=== PATIENT | male | born 1965 | race Caucasian/White ===

== ENCOUNTER 2020-02-22 07:41 | Day surgery (SDC) | payer MEDICAID ==
--- OUTSIDE RECORDS SUMMARY | 2020-02-22 07:59 | XMS REPORT | Summary of Care ---
:1965 Author Organization [facility] Address [address] [place] [address] Care Team Providers Name Role Phone JoyceMoriahTigist Rajesh Primary Care Provider Reason for Visit Reason Comments Follow-up 3mo Encounter Details Date Type Department Care Team Description 12/23/2019 Office Visit [facility] Chaz Jordan M D Hyperlipidemia, unspecified hyperlipidem ia type (Primary Dx); Cardiology- [address] Stage 4 chronic kidney disea se; [address] [place] [address] DRIVE Obesity (BMI 30-39.9) Drive, [address] [place], [place] [phone] Allergies No Known Allergiesdocumented as of this encounter (statuses as of 12/23/2019) Medications Medication Sig Dispensed Refills Start Date End Date Status atorvastatin 20 mg Take 1 tablet by 30 tablet 3 09/21/2019 Active tabletIndications: mouth daily. Hyperlipidemia, unspecified hyperlipidemia type documented as of this encounter (statuses as of 12/23/2019) Active Problems Not on filedocumented as of this encounter (statuses as of 12/23/2019) Immunizations Name Administration Dates Next Due Influenza Virus Vaccine 05/27/2019 documented as of this encounter Social History Tobacco Use Types Packs/Day Years Used Date Never Smoker Smokeless Tobacco: Never Used Sex Assigned at Date Recorded Not on file Job Start Date Occupation Industry Not on file Not on file Not on file Travel History Travel Start Travel End No recent travel history available. COVID-19 Exposure Response Date Recorded In the last month, have you been in contact with No / Unsure 12/23/2019 9:22 AM CDT someone who was confirmed or suspected to have Coronavirus / COVID-19? documented as of this encounter Last Filed Vital Signs Vital Sign Reading Time Taken Comments Blood Pressure 113/72 12/23/2019 9:23 AM CDT Pulse 61 12/23/2019 9:23 AM CDT Temperature - - Respiratory Rate 19 12/23/2019 9:23 AM CDT Oxygen Saturation 100% 12/23/2019 9:23 AM CDT Inhaled Oxygen Concentration - - Weight 81.4 kg (179 lb 6.4 oz) 12/23/2019 9:23 AM CDT Height 160 cm (5' 3") 12/23/2019 9:23 AM CDT Body Mass Index 31.78 12/23/2019 9:23 AM CDT documented in this encounter Progress Notes Chaz Jordan MD - 12/23/2019 9:20 AM CDT CARDIOLOGY CLINIC NOTE 12/23/2019 Reason for Referral/Presenting Complaint: HLD PCP: Tigist Cook Referring Provider--Ugo Guillory History of Present Illness: Lavon Antonio is a 54 years old male with history of CKD 4, obesity and mixed HLD. Last LDL 210. Denies chest pain. Mild DAWN with 3-4 blocks walking. Denies HTN or DM. In the past he refused to take statins. Referred here for PSK-9 inhibitor assessment. Last visit we started lipitor 20 mg daily. No side effect. ECHO showed normal LVEF. Cardiovascular testing: EKG: Normal sinus rhythm. Normal EKG. ECHO--Normal LVEF. Mildly dilated aorta. Review of Systems: General: (-) fever, (-) chills, (-) weight change, (-) dizziness, (-) fatigue Skin: (-) rash HEENT: (-) headache, (-) change in vision Neck: (-) difficulty swallowing Heme: negative Resp: (-) cough, (+) dyspnea on exertion Cardio: (-) chest pain, (-) palpitations, (-) syncope GI: (-) vomiting, (-) diarrhea : negative Endo: (-) diabetes, (-) thyroid disease Neuro: (-) numbness, (-) tingling, (-) weakness Back: (-) pain CAYDEN: (-) muscle pain, (-) claudication Psych: (-) anxiety, (-) depression Past Medical History: No past medical history on file. Current Medications: Current Outpatient Medications Medication Sig Dispense Refill atorvastatin 20 mg tablet Take 1 tablet by mouth daily. 30 tablet 3 No current facility-administered medications for this visit. Social History: Social History Socioeconomic History Marital status: Single Spouse name: Not on file Number of children: Not on file Years of education: Not on file Highest education level: Not on file Occupational History Not on file Social Needs Financial resource strain: Not on file Food insecurity: Worry: Not on file Inability: Not on file Transportation needs: Medical: Not on file Non-medical: Not on file Tobacco Use Smoking status: Never Smoker Smokeless tobacco: Never Used Substance and Sexual Activity Alcohol use: Not on file Drug use: Not on file Sexual activity: Not on file Lifestyle Physical activity: Days per week: Not on file Minutes per session: Not on file Stress: Not on file Relationships Social connections: Talks on phone: Not on file Gets together: Not on file Attends sabianist service: Not on file Active member of club or organization: Not on file Attends meetings of clubs or organizations: Not on file Relationship status: Not on file Intimate partner violence: Fear of current or ex partner: Not on file Emotionally abused: Not on file Physically abused: Not on file Forced sexual activity: Not on file Other Topics Concern Not on file Social History Narrative Not on file Family History Family History Problem Relation Age of Onset Cancer Father colon cancer Coronary Heart Disease Father PCI @ 68 Physical Examination: BP 113/72 (BP Location: Left arm, Patient Position: Sitting, BP CUFF SIZE: Adult Small) | Pulse 61| Resp 19 | Ht 5' 3" (1.6 m) | Wt 179 lb 6.4 oz (81.4 kg) | SpO2 100% | BMI 31.78 kg/m Constitutional: alert and oriented x 3 (person, place and date/time); no apparent distress, obese ENT: normocephalic atraumatic, supple, no lymphadenopathy, no bruits, no JVD Lungs: clear to auscultation bilaterally Cardiovascular: S1, S2 normal, regular; no murmurs, rubs or gallops GI: soft; non-tender; non-distended; normoactive bowel sounds : not examined Musculoskeletal: Extremities: no clubbing, cyanosis, or edema Skin: no rashes Neuro: no focal deficits Assessment/Plan: ICD-10-CM ICD-9-CM 1. Hyperlipidemia, unspecified hyperlipidemia type E78.5 272.4 2. Stage 4 chronic kidney disease N18.4 585.4 3. Obesity (BMI 30-39.9) E66.9 278.00 Mixed HLD--with LDL 210, there is a benefit for high intensity statins. We started lipitor 20 mg daily. He has not increased it as instructed. No side effect. Plan on repeating lipid panel today for further dosing. Discussed diet and exercise. Patient was counseled for lifestyle modifications including: diet, exercise and weight loss. RTC 12 months if stable Chaz Jordan MD, FAC, [employer] Admissions Representative, Division of Cardiology [facility] documented in this encounter Plan of Treatment Date Type Specialty Care Team Description 12/23/[address] Visit Phlebotomy 2, Adc Lab 12/26/2020 Office Visit Cardiology Chaz Jordan M D [address] [place] [address] 15 [phone] Name Type Priority Associated Diagnoses Order S chedule LIPID PANEL LAB Routine Hyperlipidemia, unspecified 1 Occurrences starting (06097)(TOTAL hyperlipidemia type 020 until CHOLESTEROL, 03/24/2020 TRIGLYCERIDES, HDL) Health Maintenance Due Date Last Done Comments DTaP,Tdap,and Td Vaccines (1 1977 - Tdap) Depression Screening 1978 COLONOSCOPY 01/17/2016 Zoster Recombinant Vaccine 01/17/2016 (SHINGRIX) (1 of 2) INFLUENZA VACCINE Completed 05/27/2019, 05/15/2017, 06/11/2016 PNEUMOCOCCAL 0-64 YEARS Aged Out No longe r eligible based COMBINED SERIES on patient's age to complete this to [facility] documented as of this encounter Results Not on filedocumented in this encounter Visit Diagnoses Diagnosis Hyperlipidemia, unspecified hyperlipidem ia type - Primary Stage 4 chronic kidney disease Obesity (BMI 30-39.9) Obesity, unspecified documented in this encounter Insurance Payer Benefit Plan / Subscriber ID Effective Phone Address T [facility] Group Dates AG LUONG xxxxxxxxx 2011-Kelly RAPP [place] [id number] MA[place] MEDICAID [place], [place] documented as of this encounter
--- OUTSIDE RECORDS SUMMARY | 2020-02-22 07:59 | XMS REPORT | Continuity of Care Document ---
:1965 Author Organization [facility] t Address [address] [place] [address] Care Team Providers Name Role Phone Julian VALE Attending Clinician Problems This patient has no known problems. Allergies, Adverse Reactions, Alerts This patient has no known allergies or adverse reactions. Medications This patient has no known medications. Procedures This patient has no known procedures. Encounters Start End Encounter Admission Attending Care Care Encounter Source Date/Time Date/Time Type Type Clinicians Facility Department ID 2019-12-30 2019-12-30 [facility] [id number] 00:00:00 00:00:00 Chaz Turner [id number] [place] [id number] Professio [phone] nal 059 Building 2019-12-23 2019-12-23 Office [facility] [id number] 09:05:47 23:17:42 Visit Chaz Turner [id number] [place] [id number] Professio [phone] [facility]9 [facility] Results This patient has no known results.
--- OUTSIDE RECORDS SUMMARY | 2020-02-22 07:59 | XMS REPORT | Summary of Care ---
:1965 Author Organization [facility] Address [address] [place] [address] Care Team Providers Name Role Phone JoyceMoriahTigist Rajesh Primary Care Provider Reason for Visit Reason Comments Follow-up 3mo Encounter Details Date Type Department Care Team Description 12/23/2019 Office Visit [facility] Chaz Jordan M D Hyperlipidemia, unspecified hyperlipidem ia type (Primary Dx); Cardiology- [address] Stage 4 chronic kidney disea se; [address] [place] [address] DRIVE Obesity (BMI 30-39.9) Drive, [address] [place], [place] [phone] Allergies No Known Allergiesdocumented as of this [...] file Gets together: Not on file Attends druze service: Not on file Active member of [...] if stable Chaz Jordan MD, FAC, JAYCE Reheater, Division of Cardiology [facility] documented in this encounter Plan of Treatment Date Type Specialty Care Team Description 12/23/2019 Visual Education Director Visit Phlebotomy 2, Adc Lab 12/26/2020 Office Visit Cardiology Chaz Jordan M D [address] [place] [address] [phone] Name Type Priority Associated Diagnoses Order S chedule LIPID PANEL LAB Routine Hyperlipidemia, unspecified 1 Occurrences starting (09256)(TOTAL hyperlipidemia type 020 until CHOLESTEROL, 03/24/2020 TRIGLYCERIDES, HDL) Health Maintenance Due Date Last Done Comments DTaP,Tdap,and Td Vaccines (1 1977 - Tdap) Depression Screening 1978 COLONOSCOPY 01/17/2016 Zoster Recombinant Vaccine 01/17/2016 (SHINGRIX) (1 of 2) INFLUENZA VACCINE Completed 05/27/2019, 05/15/2017, 06/11/2016 PNEUMOCOCCAL 0-64 YEARS Aged Out No longe r eligible based COMBINED SERIES on patient's age to complete this to psychiatric documented as of this encounter Results Not on filedocumented in this encounter Visit Diagnoses Diagnosis Hyperlipidemia, unspecified hyperlipidem ia type - Primary Stage 4 chronic kidney disease Obesity (BMI 30-39.9) Obesity, unspecified documented in this encounter Insurance Payer Benefit Plan / Subscriber ID Effective Phone Address T [facility] Group Dates AG LUONG xxxxxxxxx 2011-Kelly RAPP [place] [phone] MANAGED MEDICAID [place] documented as of this encounter
--- OUTSIDE RECORDS SUMMARY | 2020-02-22 07:59 | XMS REPORT | Summary of Care ---
:1965 Author Organization [facility] Address [address] [place] [address] Care Team Providers Name Role Phone Tigist Cook Primary Care Provider Reason for Visit Reason Comments LAB Encounter Details Date Type Department Care Team Description 12/23/2019 Silver [place] Visit [facility] Chaz Jordan MD [address] [place] [address] [address] [place] [address] Hyperlipidemia, Professional Office 2, [facility] unspecified Building Phlebotomy hyperlip idemia type Lab Professional Office Building [address] [place] [address] [address], [address] [place] [address] Allergies No Known Allergiesdocumented as of this [...] of this encounter Last Filed Vital Signs Not on filedocumented in this encounter Plan of Treatment Date Type Specialty Care Team Description 12/26/2020 Office Visit Cardiology Chaz Jordan M D [address] [facility] [address] [place] [address] [phone] Health Maintenance Due Date Last Done Comments DTaP,Tdap,and Td Vaccines (1 1977 - Tdap) Depression Screening 1978 COLONOSCOPY 01/17/2016 Zoster Recombinant Vaccine 01/17/2016 (SHINGRIX) (1 of 2) INFLUENZA VACCINE Completed 05/27/2019, 05/15/2017, 06/11/2016 PNEUMOCOCCAL 0-64 YEARS Aged Out No longe r eligible based COMBINED SERIES on patient's age to complete this to [facility] documented as of this encounter Results Not on filedocumented in this encounter Visit Diagnoses Diagnosis Hyperlipidemia, unspecified hyperlipidem ia type documented in this encounter Insurance Payer Benefit Plan / Subscriber ID Effective Phone Address T ype Group Dates AG LUONG xxxxxxxxx 2011-Kelly Osborne [address] Medic aid [facility]ALTHCARE - [facility] [place] [address] MANAGED MEDICAID [place], [place] (Home) [address] [place] [address] documented as of this encounter
--- OUTSIDE RECORDS SUMMARY | 2020-02-22 08:00 | XMS REPORT | Summary of Care ---
:1965 Author Organization [facility] Address [address] [place] [address] Care Team Providers Name Role Phone Tigist Cook Primary Care Provider Reason for Visit Reason Comments Results Encounter Details Date Type Department Care Team Description 12/30/2019 Telephone [facility] Cardiology- Shanel Jordan MD Results [place] [address] [facility] 146 [facility], [address] [place] [address] [place] [address] [phone] Allergies No Known Allergiesdocumented as of this encounter (statuses as of 01/02/2020) Medications Medication Sig Dispensed Refills Start Date End Date Status atorvastatin 20 mg Take 1 tablet by 90 tablet 3 12/23/2019 Active tabletIndications: mouth daily. Hyperlipidemia, unspecified hyperlipidemia type documented as of this encounter (statuses as of 01/02/2020) Active Problems Not on filedocumented as of this encounter (statuses as of 01/02/2020) Immunizations Name Administration Dates Next Due Influenza [...] Visit Cardiology Chaz Jordan M D [address] [facility] [address] [place] [address] [phone] Health Maintenance Due Date Last Done Comments DTaP,Tdap,and Td Vaccines (1 1977 - Tdap) Depression Screening 1978 COLONOSCOPY 01/17/2016 Zoster Recombinant Vaccine 01/17/2016 (SHINGRIX) (1 of 2) INFLUENZA VACCINE Completed 05/27/2019, 05/15/2017, 06/11/2016 PNEUMOCOCCAL 0-64 YEARS Aged Out No longe r eligible based COMBINED SERIES on patient's age to complete this to [facility] documented as of this encounter Results Not on filedocumented in this encounter Insurance Payer Benefit Plan / Subscriber ID Effective Phone Address T e Group Dates AG LUONG xxxxxxxxx 2011-Kelly [address] [place] [phone] MA[place]ED MEDICAID [place] documented as of this encounter
--- OUTSIDE RECORDS SUMMARY | 2020-02-22 08:00 | XMS REPORT | Summary of Care ---
:1965 Author Organization [facility] Address [address] [place] [address] Care Team Providers Name Role Phone JoyceMoriahTigist Rajesh Primary Care Provider Reason for Visit Reason Comments Follow-up 3mo Encounter Details Date Type Department Care Team Description 12/23/2019 Office Visit [facility] Chaz Jordan M D Hyperlipidemia, unspecified hyperlipidem ia type (Primary Dx); Cardiology- [address] Stage 4 chronic kidney disea se; [address] [place] [address] DRIVE Obesity (BMI 30-39.9) Drive, [address] [place], [place] [phone] Allergies No Known Allergiesdocumented as of this encounter (statuses as of 12/23/2019) Medications Medication Sig Dispensed Refills Start Date End Date Status atorvastatin 20 mg Take 1 90 tablet 3 12/23/2019 Active tabletIndications: tablet by Hyperlipidemia, mouth unspecified daily. hyperlipidemia type atorvastatin 20 mg Take 1 30 tablet 3 09/21/2019 Discontinued tabletIndications: tablet by 0 ( Reorder) Hyperlipidemia, mouth unspecified daily. hyperlipidemia type documented as of this encounter [...] file Gets together: Not on file Attends shinto service: Not on file Active member of [...] 12 months if stable Chaz Jordan MD, FACC, JAYCE Puppet Engineer, Division of Cardiology [facility] documented in this encounter Plan of Treatment Date Type Specialty Care Team Description 12/26/2020 Office Visit Cardiology Chaz Jordan M D [address] [facility] [address] [place] [address] [phone] Health Maintenance Due Date Last Done Comments DTaP,Tdap,and Td Vaccines (1 1977 - Tdap) Depression Screening 1978 COLONOSCOPY 01/17/2016 Zoster Recombinant Vaccine 01/17/2016 (SHINGRIX) (1 of 2) INFLUENZA VACCINE Completed 05/27/2019, 05/15/2017, 06/11/2016 PNEUMOCOCCAL 0-64 YEARS Aged Out No longe r eligible based COMBINED SERIES on patient's age to complete this to pic documented as of this encounter Results LIPID PANEL (18407)(TOTAL CHOLESTEROL, TRIGLYCERIDES, HDL) (12/23/2019 9:49 AM CDT) Pathologist Sig nature CHOL 163 120 - 200 mg/dL [facility] HDL 44 >40 mg/dL [facility] HDLC RATIO 3.7 <=5.0 [facility] TRIG 155 30 - 170 mg/dL [facility] LDL CHOL 88 <=160 mg/dL [facility] VLDL 31 5 - 60 mg/dL [facility] Specimen Blood Performing Organization Address City/State/Zipcode Phone Number [facility] CLIA: [id number], [address] [place], [place] [address] documented in this encounter Visit Diagnoses Diagnosis Hyperlipidemia, unspecified hyperlipidem ia type - Primary Stage 4 chronic kidney disease Obesity (BMI 30-39.9) Obesity, unspecified documented in this encounter Insurance Payer Benefit Plan / Subscriber ID Effective Phone Address T ype Group Dates AG LUONG xxxxxxxxx 2011-Kelly [address] [place] [facility] [place] [address] MANAGED MEDICAID [place], [place] documented as of this encounter
[2020-02-22] MEDS ORDERED: Ringers Lactate 1,000 ML IV ONE (08:12)
[2020-02-22] MEDS ORDERED: BUPIVACA 0.25%/EPI 0.0005%/PF 30 ML VIAL ONE (09:00)
[2020-02-22 09:21] LABS: Absolute Lymphocytes (CBC) 1.1 K/uL (0.7-4.9); Basophils % 1.1 % (0-1.3); Lymphocytes % 16.6 % (15.3-44.8); MPV 7.7 fL (7.6-11.3); RBC Red Blood Cell Count 2.18 M/uL (4.33-5.43)
[2020-02-22 09:36] LABS: Hematocrit 19.3 % (39.6-49.0)
[2020-02-22 09:43] LABS: Potassium 3.9 mmol/L (3.5-5.1)
[2020-02-22] MEDS ORDERED: propofoL 200 MG/20 ML VIAL IV ONE (10:26)
[2020-02-22] MEDS ORDERED: MIDAZOLAM HCL 2 MG/2 ML INJ ONE (10:26)
[2020-02-22] MEDS ORDERED: LIDOCAINE 2% MPF 5 ML VIAL ONE (10:26)
[2020-02-22] MEDS ORDERED: FENTANYL CITR 100 MCG/2 ML ONE (10:26)
[2020-02-22] MEDS ORDERED: BSS OPTHALMIC SOL 15 ML BOT OPTH ONE (10:48)
[2020-02-22] MEDS ORDERED: CEFAZOLIN SODIUM 1 GM/VIAL ONE (10:49)
--- NOTE | 2020-02-22 10:57 | P.OP ---
Mold Worker: NONE,NONE Preoperative diagnosis: LEFT Supraorbital cyst Postoperative diagnosis: LEFT Supraorbital cyst Primary procedure: Excision of LEFT Supraorbital cyst Anesthesia: MAC + Local Estimated blood loss: <10cc Specimen: cyst and cultures Findings: sebaceous cyst ~2.5cm round Complications: None Transferred to: Recovery Room Condition: Good
[2020-02-22 12:04] VITALS: BP 110/66; TEMP 96.6; O2SAT 95
--- NOTE | 2020-02-22 20:57 | OP ---
Date of Procedure: 02/22/2020 Surgeon: Farzad Pace MD, Preoperative Diagnosis: Left supraorbital cyst. Postoperative Diagnosis: Left supraorbital cyst. Procedure Performed: Excision of left supraorbital cyst. Anesthesia: MAC plus local with 0.25% Marcaine with epinephrine. Estimated Blood Loss: Less than 10 mL. Specimens: Cyst and cultures. Findings: Sebaceous cyst approximately 2.5 cm round. Complications: None. Disposition: Transferred to recovery room in good condition. Procedure In Detail: After informed consent was obtained, the patient was brought to the operating r oom, prepped and draped in the usual sterile fashion. After adequate anesthesia achieved, additional ly anesthetized the area over the left supraorbital ridge and circumferentially inspected the area. I made a superior orbital incision of approximately 2 cm in size following the Liz line of the for ehead down through subcutaneous tissues after stopping all oxygen approximately 5 minutes prior. At this point, I suctioned out the area, fluff the dressings to ensure all oxygen had been evacuated. T he patient was on room air at this point and I used needle-tip low electrocautery to dissect down thr ough subcutaneous tissues with Waterpik and basin on the standby. After I dissected down to the subc utaneous tissues, I bluntly dissected out the sebaceous cyst, which was found to be in the posterior position and had some leakage of sebum material. This was cultured for both aerobic and anaerobic sp eciation and has a discoloration character to it. At this point, I circumferentially dissected the s ac bluntly and removed it from the space. I then achieved hemostasis with electrocautery, irrigated the area copiously multiple times until completely clear and then closed the area with a running 4-0 Monocryl in a running fashion, Dermabond placed over top. The patient tolerated the procedure well w ithout evidence of complication, transferred to PACU in good condition. All counts were correct at t he end of the case. TK/MODL Voice ID: [id number] Report ID: [id number]
== END 2020-02-22 11:40 | disposition home or self-care (01) ==
LOC: OR 07:41
PROVIDERS: ATTEND Surgery
PROC: 08BP0ZX Excision of Left Upper Eyelid, Open Approach, Diagnostic (ICD-10-PCS; principal; 2020-02-22 09:15)
DX: L72.0 Epidermal cyst (principal); Z11.59 Encounter for screening for other viral diseases
CPT/HCPCS: 11443; 87070; 85025; 80048; 36415; 87205 ×2; 88304; 87075; U0002; J2704; J2250; J7120; J0690; J3010

== ENCOUNTER 2020-04-09 01:25 | Inpatient (IN) | payer MEDICAID ==
[2020-04-09] MEDS ORDERED: NA CHLORIDE 0.9% 1,000 ML ONE (01:54)
[2020-04-09] MEDS ORDERED: DIPHENHYDRAMINE 50 MG/ML VIAL ONE (01:54)
[2020-04-09] MEDS ORDERED: METHYLPREDNISOLONE 125 MG INJ ONE (01:54)
[2020-04-09] MEDS ORDERED: predniSONE 10 MG TAB ONE (01:54)
[2020-04-09] MEDS ORDERED: FAMOTIDINE 20 MG/2 ML VIAL IV ONE (01:55)
[2020-04-09 02:08] LABS: Absolute Lymphocytes (CBC) 1.5 K/uL (0.7-4.9)
[2020-04-09 02:14] LABS: Basophils % 1.2 % (0-1.3); MPV 7.6 fL (7.6-11.3); RBC Red Blood Cell Count 2.19 M/uL (4.33-5.43)
[2020-04-09 02:17] LABS: Hematocrit 18.4 % (39.6-49.0)
[2020-04-09 02:24] LABS: Urine Blood 2+ (NEG); Urine Glucose NEGATIVE (NEG); Urine Protein 2+ (NEG)
[2020-04-09 02:36] LABS: Albumin 2.7 g/dL (3.4-5.0); Bilirubin Total 0.2 mg/dL (0.2-1.0); Potassium 3.8 mmol/L (3.5-5.1); Protein, Total 7.4 g/dL (6.4-8.2)
--- NOTE | 2020-04-09 02:54 | ER ---
Nurse's Notes [facility] Name: Lavon Antonio Age: 55 yrs Sex: Male : 1965 Arrival Date: 04/09/2020 Time: 01:31 Bed 5 Private MD: Diagnosis: Unspecified kidney failure-ACUTE ON CHRONIC;Anemia, unspecified;Edema, unspecified Presentation: 04/09 01:32 Chief complaint: EMS states: they were toned out for report of pt with rash x 1 week. bb Pt states he just got rid of bedbugs in his apartment approx a week ago but the itching has gotten so bad he has not been able to sleep the last 2 days. Coronavirus screen: At this time, the client does not indicate any symptoms associated with coronavirus-19. Ebola Screen: No symptoms or risks identified at this time. Initial Sepsis Screen: Does the patient meet any 2 criteria? No. Patient's initial sepsis screen is negative. Does the patient have a suspected source of infection? No. Patient's initial sepsis screen is negative. Risk Assessment: Do you want to hurt yourself or someone else? Patient reports no desire to harm self or others. Onset of symptoms was March 2020. 01:32 Method Of Arrival: EMS: [facility] 01:32 Acuity: VIANNEY 4 bb Historical: - Allergies: 01:35 No Known Allergies; bb - Home Meds: 01:35 None [Active]; bb - PMHx: 01:35 kidney disease; bb - Immunization history:: Adult Immunizations up to date. - Social history:: Smoking status: Patient denies any tobacco usage or history of. Patient/guardian denies using alcohol, street drugs. - Family history:: pertinent for. Screenin:38 Abuse screen: Denies threats or abuse. Denies injuries from another. Nutritional lp1 screening: No deficits noted. Tuberculosis screening: No symptoms or risk factors identified. Fall Risk None identified. Assessment: 01:36 General: Appears in no apparent distress. Behavior is appropriate for age. Pain: Denies lp1 pain. Neuro: Level of Consciousness is awake, alert, obeys commands, Oriented to person, place, time, situation. Cardiovascular: Patient's skin is warm and dry. Respiratory: Respiratory effort is even, unlabored. GI: Abdomen is non-distended. : No signs and/or symptoms were reported regarding the genitourinary system. EENT: No signs and/or symptoms were reported regarding the EENT system. Derm: Skin is intact, Skin is dry, Skin is normal, Skin temperature is warm no rash noted to trunk Reports itching, to posterior back and abdomen. Musculoskeletal: No deficits noted. 02:45 Reassessment: Patient states some itching relief at this time; appears restless, lp1 standing at side of bed; denies any discomfort. 03:02 Reassessment: Hospitalist at bedside to discuss plan of care with patient. lp1 03:29 Reassessment: Nurse unable to take report at this time; will return call. lp1 04:15 Reassessment: Patient appears in no apparent distress at this time. Patient and/or lp1 family updated on plan of care and expected duration. Pain level reassessed. Patient states some slight itching to posterior back. Vital Signs: 01:32 BP 150 / 74; Pulse 96; Resp 16 S; Temp 98(O); Pulse Ox 100% on R/A; Weight 83.91 kg bb (R); Height 5 ft. 3 in. (160.02 cm) (R); Pain 0/10; 03:00 BP 140 / 78; Pulse 90; Resp 17; Pulse Ox 100% on R/A; lp1 04:00 BP 138 / 79; Pulse 80; Resp 17; Pulse Ox 100% on R/A; lp1 01:32 Body Mass Index 32.77 (83.91 kg, 160.02 cm) ED Course: 01:31 Patient arrived in ED. bb 01:33 Freddy Castellanos MD is Attending Physician. [facility] 01:35 Triage completed. bb 01:35 Kia Parr, KM is Primary Nurse. lp1 01:35 Arm band placed on Patient placed in an exam room, on a stretcher, on pulse oximetry. bb 01:38 Patient has correct armband on for positive identification. lp1 01:55 Initial lab(s) drawn, by me, sent to lab. Inserted saline lock: 20 gauge in right hand, lp1 using aseptic technique. Blood collected. 02:22 Urine collected: clean catch specimen, clear. rr5 02:28 IV discontinued, intact, bleeding controlled, No redness/swelling at site. Pressure rr5 dressing applied, right IV line removed positive infiltration. 02:30 Inserted saline lock: 20 gauge in left hand, using aseptic technique. rr5 02:52 Nino Sparks MD is Hospitalizing Provider. clare 02:54 XRAY Chest (1 view) In Process Unspecified. EDMS 03:25 No provider procedures requiring assistance completed. Patient admitted, IV remains in lp1 place. Administered Medications: Discontinued: NS 0.9% 1000 ml IV at 125 ml/hr continuous 01:50 Drug: predniSONE 20 mg Route: PO; lp1 03:26 Follow up: Response: No adverse reaction lp1 01:55 Drug: NS 0.9% 1000 ml Route: IV; Rate: 125 ml/hr; Site: right hand; lp1 01:55 Drug: Pepcid 20 mg Route: IVP; Site: right hand; lp1 03:26 Follow up: Response: No adverse reaction lp1 01:55 Drug: Benadryl 25 mg Route: IVP; Site: right hand; lp1 03:26 Follow up: Response: No adverse reaction lp1 01:55 Drug: SOLU-Medrol 125 mg Route: IVP; Site: right hand; lp1 03:26 Follow up: Response: No adverse reaction lp1 03:19 Drug: Rocephin 1 grams Route: IV; Rate: per protocol; Site: left hand; lp1 04:24 Follow up: IV Status: Completed infusion; IV Intake: 10ml lp1 03:19 Drug: D5W with Sodium Bicarbonate 100 mEq/L 1000 ml Route: IV; Rate: 75 ml/hr; Site: lp1 left hand; 04:25 Follow up: IV Status: Infusion continued upon admission lp1 Intake: 04:24 IV: 10ml; Total: 10ml. lp1 Outcome: 02:53 Decision to Hospitalize by Provider. clare 03:25 Condition: stable lp1 03:25 Instructed on the need for admit. 04:23 Admitted to Med/surg via wheelchair, room 220, with chart, Report called to KM Zamorano lp1 04:45 Patient left the ED. lp1 Signatures: Dispatcher [employer] Freddy Allen MD MD cha Ballard, Brenda, RN RN bb Pena, Laura, RN RN lp1 Andrea Espinoza RN RN rr5 Corrections: (The following items were deleted from the chart) 04:24 04:23 Admitted to Med/surg via wheelchair, with chart, Report called to KM Zamorano lp1 lp1
--- NOTE | 2020-04-09 02:54 | EDPHYS ---
Physician Documentation [facility] Name: Lavon Antonio Age: 55 yrs Sex: Male : 1965 Arrival Date: 04/09/2020 Time: 01:31 Bed 5 Private MD: GIANCARLO Physician Freddy Castellanos HPI: 04/09 01:38 This 55 yrs old Male presents to ER via EMS with complaints of Rash. clare 01:38 The patient's rash thought to be caused by Dermatitis. The rash is located on the back. clare The rash can be described as erythematous, flat. Onset: The symptoms/episode began/occurred today, yesterday, 2 day(s) ago. Associated signs and symptoms: Pertinent positives: burning sensation. Severity of symptoms: At their worst the symptoms were mild in the emergency department the symptoms are unchanged. The patient has not experienced similar symptoms in the past. Historical: - Allergies: 01:35 No Known Allergies; bb - Home Meds: 01:35 None [Active]; bb - PMHx: 01:35 kidney disease; bb - Immunization history:: Adult Immunizations up to date. - Social history:: Smoking status: Patient denies any tobacco usage or history of. Patient/guardian denies using alcohol, street drugs. - Family history:: pertinent for. ROS: 01:38 Constitutional: Negative for fever, chills, and weight loss, Eyes: Negative for injury, clare pain, redness, and discharge, ENT: Negative for injury, pain, and discharge, Neck: Negative for injury, pain, and swelling, Cardiovascular: Negative for chest pain, palpitations, and edema, Respiratory: Negative for shortness of breath, cough, wheezing, and pleuritic chest pain, Abdomen/GI: Negative for abdominal pain, nausea, vomiting, diarrhea, and constipation, : Negative for injury, bleeding, discharge, and swelling, MS/Extremity: Negative for injury and deformity, Neuro: Negative for headache, weakness, numbness, tingling, and seizure, Psych: Negative for depression, anxiety, suicide ideation, homicidal ideation, and hallucinations, Allergy/Immunology: Negative for hives, rash, and allergies, Endocrine: Negative for neck swelling, polydipsia, polyuria, polyphagia, and marked weight changes, Hematologic/Lymphatic: Negative for swollen nodes, abnormal bleeding, and unusual bruising. 01:38 Back: Positive for ITCHING. Exam: 01:38 Constitutional: This is a well developed, well nourished patient who is awake, alert, clare and in no acute distress. Head/Face: Normocephalic, atraumatic. Eyes: Pupils equal round and reactive to light, extra-ocular motions intact. Lids and lashes normal. Conjunctiva and sclera are non-icteric and not injected. Cornea within normal limits. Periorbital areas with no swelling, redness, or edema. ENT: Nares patent. No nasal discharge, no septal abnormalities noted. Tympanic membranes are normal and external auditory canals are clear. Oropharynx with no redness, swelling, or masses, exudates, or evidence of obstruction, uvula midline. Mucous membranes moist. Neck: Trachea midline, no thyromegaly or masses palpated, and no cervical lymphadenopathy. Supple, full range of motion without nuchal rigidity, or vertebral point tenderness. No Meningismus. Chest/axilla: Normal chest wall appearance and motion. Nontender with no deformity. No lesions are appreciated. Cardiovascular: Regular rate and rhythm with a normal S1 and S2. No gallops, murmurs, or rubs. Normal PMI, no JVD. No pulse deficits. Respiratory: Lungs have equal breath sounds bilaterally, clear to auscultation and percussion. No rales, rhonchi or wheezes noted. No increased work of breathing, no retractions or nasal flaring. Abdomen/GI: Soft, non-tender, with normal bowel sounds. No distension or tympany. No guarding or rebound. No evidence of tenderness throughout. Back: No spinal tenderness. No costovertebral tenderness. Full range of motion. Male : Normal genitalia with no discharge or lesions. Skin: Warm, dry with normal turgor. Normal color with no rashes, no lesions, and no evidence of cellulitis. Neuro: Awake and alert, GCS 15, oriented to person, place, time, and situation. Cranial nerves II-XII grossly intact. Motor strength 5/5 in all extremities. Sensory grossly intact. Cerebellar exam normal. Normal gait. Psych: Awake, alert, with orientation to person, place and time. Behavior, mood, and affect are within normal limits. 01:38 Musculoskeletal/extremity: Extremities: swelling. 02:50 Abdomen/GI: Inspection: distension, Bowel sounds: normal, Palpation: abdomen is soft clare and non-tender, Rectal exam: is unremarkable, Prostate: normal, rectal tone normal, Stool: guaiac negative, hemorrhoid(s), are not appreciated, mass, is not appreciated, swelling, is not appreciated, Liver: no appreciated palpable abnormalities, Hernia: not appreciated. 03:12 ECG was reviewed by the Attending Physician. [facility] Vital Signs: 01:32 BP 150 / 74; Pulse 96; Resp 16 S; Temp 98(O); Pulse Ox 100% on R/A; Weight 83.91 kg bb (R); Height 5 ft. 3 in. (160.02 cm) (R); Pain 0/10; 03:00 BP 140 / 78; Pulse 90; Resp 17; Pulse Ox 100% on R/A; lp1 04:00 BP 138 / 79; Pulse 80; Resp 17; Pulse Ox 100% on R/A; lp1 01:32 Body Mass Index 32.77 (83.91 kg, 160.02 cm) MDM: 01:33 Patient medically screened. [facility] 01:41 Differential diagnosis: impetigo, varicella, allergic reaction, parasite infection. [facility] Data reviewed: vital signs, nurses notes, lab test result(s), CBC, electrolytes. 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 04/09 01:37 Order name: CBC with Diff [facility] 04/09 01:37 Order name: Comprehensive Metabolic Panel [facility] 04/09 01:38 Order name: CBC with Automated Diff; Complete Time: 02:25 EDMS 04/09 01:38 Order name: Comprehensive Metabolic Panel; Complete Time: 02:50 EDMS 04/09 02:21 Order name: Urine Dipstick--Ancillary (enter results); Complete Time: 02:25 ar5 04/09 02:22 Order name: Urine Microscopic Only rr 04/09 02:22 Order name: Urine Culture [facility] 04/09 02:23 Order name: Urine Microscopic Only; Complete Time: 03:31 [facility] [place] 04/09 02:25 Order name: Magnesium; Complete Time: 03:58 [facility] 04/09 02:25 Order name: NT PRO-BNP; Complete Time: 03:58 [facility] 04/09 02:25 Order name: PT-INR; Complete Time: 03:31 [facility] 04/09 02:25 Order name: Troponin (emerg Dept Use Only); Complete Time: 03:58 [facility] 04/09 02:26 Order name: Type And Screen [facility] 04/09 03:59 Order name: Transferrin Sat/Iron Binding [facility] [place] 04/09 01:37 Order name: Urine Dipstick-Ancillary (obtain specimen); Complete Time: 02:21 [facility] 04/09 02:25 Order name: XRAY Chest (1 view) [facility] 04/09 02:25 Order name: EKG; Complete Time: 02:26 [facility] 04/09 02:25 Order name: Cardiac monitoring; Complete Time: 02:34 [facility] 04/09 02:25 Order name: EKG - Nurse/Tech; Complete Time: 03:03 [facility] 04/09 02:25 Order name: IV Saline Lock; Complete Time: 02:34 [facility] 04/09 02:55 Order name: CT Stone Protocol [facility] 04/09 03:08 Order name: CONS Physician Consult [facility] [place] 04/09 03:59 Order name: Ferritin [facility] [place] 04/09 02:25 Order name: Labs collected and sent; Complete Time: 02:34 [facility] 04/09 02:25 Order name: O2 Per Protocol; Complete Time: 02:34 [facility] 04/09 02:25 Order name: O2 Sat Monitoring; Complete Time: 02:34 [facility] EC:12 Rate is 83 beats/min. Rhythm is regular. QRS [place] is Normal. MA interval is normal. QRS clare interval is normal. QT interval is normal. No Q waves. T waves are Normal. No ST changes noted. Clinical impression: Normal ECG and No evidence of ischemia. Interpreted by me. Reviewed by me. Administered Medications: Discontinued: NS 0.9% 1000 ml IV at 125 ml/hr continuous 01:50 Drug: predniSONE 20 mg Route: PO; lp1 03:26 Follow up: Response: No adverse reaction lp1 01:55 Drug: NS 0.9% 1000 ml Route: IV; Rate: 125 ml/hr; Site: right hand; lp1 01:55 Drug: Pepcid 20 mg Route: IVP; Site: right hand; lp1 03:26 Follow up: Response: No adverse reaction lp1 01:55 Drug: Benadryl 25 mg Route: IVP; Site: right hand; lp1 03:26 Follow up: Response: No adverse reaction lp1 01:55 Drug: SOLU-Medrol 125 mg Route: IVP; Site: right hand; lp1 03:26 Follow up: Response: No adverse reaction lp1 03:19 Drug: Rocephin 1 grams Route: IV; Rate: per protocol; Site: left hand; lp1 04:24 Follow up: IV Status: Completed infusion; IV Intake: 10ml lp1 03:19 Drug: D5W with Sodium Bicarbonate 100 mEq/L 1000 ml Route: IV; Rate: 75 ml/hr; Site: lp1 left hand; 04:25 Follow up: IV Status: Infusion continued upon admission lp1 Disposition: 04/09/20 02:53 Hospitalization ordered by Nino Sparks for Inpatient Admission. Preliminary diagnosis are Unspecified kidney failure - ACUTE ON CHRONIC, Anemia, unspecified, Edema, unspecified. - Bed requested for Telemetry/MedSurg (Inpatient). - Status is Inpatient Admission. lp1 - Condition is Fair. - Problem is new. - Symptoms have improved. Signatures: Dispatcher [employer] EDMS Freddy Castellanos MD MD cha Ballard, Brenda, RN RN bb Kia Parr RN RN lp1 Blake Oneil, DISPENSER OPERATOR-C DISPENSER OPERATOR-Cla1 Annalise Ramesh RN RN cg Corrections: (The following items were deleted from the chart) 03:16 02:53 Hospitalization Ordered by Nino Sparks MD for Inpatient Admission. cg Preliminary diagnosis is Unspecified kidney failure - ACUTE ON CHRONIC; Anemia, unspecified; Edema, unspecified. Bed requested for Telemetry/MedSurg (Inpatient). Status is Inpatient Admission. Condition is Fair. Problem is new. Symptoms have improved. clare 04:45 03:16 04/09/2020 02:53 Hospitalization Ordered by Nnio Sparks MD for Inpatient lp1 Admission. Preliminary diagnosis is Unspecified kidney failure - ACUTE ON CHRONIC; Anemia, unspecified; Edema, unspecified. Bed requested for Telemetry/MedSurg (Inpatient). Status is Inpatient Admission. Condition is Fair. Problem is new. Symptoms have improved. cg
[2020-04-09 03:00] LABS: Protime INR 1.06
[2020-04-09 03:11] LABS: Urine Bacteria 20-50 /HPF (NONE SEEN); Urine Culture Reflex Order NOT NEEDED; Urine Mucus 1+ /HPF (NONE SEEN)
[2020-04-09] MEDS ORDERED: D5W 1,000 ML IV ONE (03:17)
[2020-04-09] MEDS ORDERED: SODIUM BICARB 50 MEQ/50ML VIAL ONE (03:17)
[2020-04-09] MEDS ORDERED: CEFTRIAXONE/SWI 1gm 1 GM/10 ML SYR ONE (03:18)
[2020-04-09] MEDS ORDERED: FUROSEMIDE 20 MG/ 2ML VIAL IV ONE (03:22)
[2020-04-09] MEDS ORDERED: ACETAMINOPHEN 500 MG TAB PO ONE (03:22)
[2020-04-09] MEDS ORDERED: ONDANSETRON 4 MG/2 ML VIAL IV PRN (03:22)
[2020-04-09] MEDS ORDERED: ACETAMINOPHEN 500 MG TAB PO PRN (03:22)
[2020-04-09 03:32] LABS: NT PRO-BNP 967 pg/mL (<125); Troponin (Emerg Dept Use Only) < 0.02 ng/mL (0.0-0.045)
--- NOTE | 2020-04-09 03:36 | P.HP ---
Certification for Inpatient Patient admitted to: Observation With expected LOS: <2 Midnights Patient will require the following post-hospital care: None Practitioner: I am a practitioner with admitting privileges, knowledge of patient current condition, hospital course, and medical plan of care. Services: Services provided to patient in accordance with Admission requirements found in Title 42 Section 412.3 of the Code of Federal Regulations Patient History Date of Service: 04/09/20 Primary Care Provider: Vanessa Xie, nephrology- Dr. Guillory Reason for admission: Anemia History of Present Illness: 55-year-old male with history of CKD 4, hyperlipidemia, anemia presents emergency department for itchiness of the lower back and chest. Patient is extremely poor historian, reports he has had the itchiness for approximately 2 weeks. Patient had an CBC and BMP obtained in the emergency department which showed he was anemic with a hemoglobin of 6.0 and hematocrit of 18.4. MCV is 84.2. Patient also noted to have creatinine of 4.12, GFR 15, BUN 44, CO2 level was 13. Potassium within normal limits at 3.8. Patient with 1+ leukocytes on dipstick in urine microscopic showing urine white blood cells 20- 50 urine white blood cells 20-50 urine bacteria 20-50. ED provider did perform rectal exam which was negative for occult blood. ED provider wishes to admit patient for further evaluation and management. When I saw the patient in the emergency department is awake, alert, orient x3. Vital signs within normal limits. Patient is stable this time. Allergies No Known Allergies Allergy (Verified 02/18/20 11:17) Home Medications: Atorvastatin Calcium [Lipitor] 20 mg PO BEDTIME 02/18/20 - Past Medical/Surgical History Diabetic: No -: Chronic kidney disease stage IV -: Hyperlipidemia -: Periorbital cyst removal -: Kidney biopsy 2016 Psychosocial/ Personal History: Patient lives at home alone and is unemployed on SSI - Family History Father -: Hypertension, Cancer - Social History Smoking Status: Never smoker Alcohol use: No CD- Drugs: No Caffeine use: Yes Place of Residence: Home Review of Systems 10-point ROS is otherwise unremarkable Respiratory: SOB with Excertion Physical Examination - Physical Exam General: Alert, In no apparent distress HEENT: Atraumatic, PERRLA, Mucous membr. moist/pink Neck: Supple, 2+ carotid pulse no bruit, No LAD Respiratory: Clear to auscultation bilaterally, Normal air movement Cardiovascular: Regular rate/rhythm, Normal S1 S2 Gastrointestinal: Normal bowel sounds, No tenderness Musculoskeletal: No tenderness Integumentary: No rashes Neurological: Normal speech, Normal strength at 5/5 x4 extr, Normal tone, Normal affect - Studies Laboratory Data (last 24 hrs) 04/09/20 02:40: PT 12.5, INR 1.06 04/09/20 01:55: Sodium 141, Potassium 3.8, BUN 44 H, Creatinine 4.12 H, Glucose 99, Total Bilirubin 0.2, AST 20, ALT 28, Alkaline Phosphatase 113 04/09/20 01:55: WBC 10.0, Hgb 6.0 L*, Hct 18.4 L*, Plt Count 350 Assessment and Plan - Plan Assessment Normocytic anemia-likely anemia of chronic disease Metabolic acidosis likely secondary to CKD stage 4 Hyperlipidemia Plan Normocytic anemia-likely anemia of chronic disease: Order for blood transfusion in place, give 1 unit now and recheck H&H in 2 hr. Will give Lasix 20 mg after transfusion. Iron studies ordered to be obtained prior to transfusion. DVT prophylaxis heparin 5000 units subcutaneous once daily. Metabolic acidosis likely secondary to CKD stage 4: Nephrology consult in place, continue with previously initiated sodium bicarb drip. Appreciate further input from nephrology. Hyperlipidemia: Obtain and continue home medications Discharge Plan: Home Plan to discharge in: 24 Hours - Advance Directives Does patient have a Living Will: No Does patient have a Durable POA for Healthcare: No - Code Status/Comfort Care Code Status Assessed: Yes (Patient is full code) Critical Care: No Time Spent Managing Pts Care (In Minutes): 55
[2020-04-09 03:59] LABS: Ferritin 6.9 ng/mL (26-388)
[2020-04-09] MEDS ORDERED: NA CHLORIDE 0.9% 250 ML IV SCH (04:00)
[2020-04-09] MEDS: D5W 1,000 ML with NA BICARB 8.4% 100 MEQ IV SCH ×4 (04:00→18:40)
[2020-04-09 04:56] VITALS: BMI 30.9
[2020-04-09] MEDS ORDERED: DIPHENHYDRAMINE 50 MG/ML VIAL IV ONE (05:12)
--- NOTE | 2020-04-09 08:20 | EKG ---
Test Date: 2020-04-09 Test Time: 03:00:21 Associate Sales: ANU MEASUREMENT RESULTS: Intervals: Rate: 83 HI: 150 QRSD: 100 QT: 362 QTc: 425 Bryan: P: 22 HI: 150 QRS: 65 T: 49 INTERPRETIVE STATEMENTS: Normal sinus rhythm Normal ECG Compared to ECG 01/05/2015 11:54:49 No significant changes Electronically Signed On 04-09-20 08:19:14 CDT by Ben Carrillo
[2020-04-09] MEDS ORDERED: SOD FERRIC GLUC COMPLX/SUCROSE 125 MG in NA CHLORIDE 0.9% 100 ML IV SCH (09:00)
[2020-04-09] MEDS ORDERED: CEFTRIAXONE 1 GM/NS 50 ML 1 GM/50 ML BAG IV SCH (09:00)
[2020-04-09] MEDS ORDERED: HEPARIN 5000 UNIT/ML 1 ML VIAL SQ SCH (09:00)
--- NOTE | 2020-04-09 10:19 | RAD REPORT ---
EXAM DESCRIPTION: Kel Single View04/09/2020 2:53 am CLINICAL HISTORY: Cough COMPARISON: none FINDINGS: Medial right base is hazy Left lung appears clear The heart is normal size IMPRESSION: Medial right base is hazy which could indicate a mild infiltrate
--- NOTE | 2020-04-09 11:14 | P.PN ---
Subjective Date of Service: 04/09/20 Primary Care Provider: Vanessa Xie, nephrology- Dr. Guillory Chief Complaint: Anemia Subjective: Improving (Patient is doing well he has had some rash on his back from bedbugs denies history of GI bleed patient has chronic renal failure no other complaint) Review of Systems 10-point ROS is otherwise unremarkable Physical Examination - Vital Signs Temperature: 97.2 F Blood Pressure: 143/79 Pulse: 84 Respirations: 18 Pulse Ox (%): 100 - Physical Exam General: Alert, In no apparent distress, Oriented x3 HEENT: Atraumatic Neck: Supple Respiratory: Clear to auscultation bilaterally Cardiovascular: No edema, Normal S1 S2 Integumentary: Other (Patient has a rash on his torso) - Studies Laboratory Data (last 24 hrs) 04/09/20 02:40: PT 12.5, INR 1.06 04/09/20 01:55: Magnesium 2.0 04/09/20 01:55: Sodium 141, Potassium 3.8, BUN 44 H, Creatinine 4.12 H, Glucose 99, Total Bilirubin 0.2, AST 20, ALT 28, Alkaline Phosphatase 113 04/09/20 01:55: WBC 10.0, Hgb 6.0 L*, Hct 18.4 L*, Plt Count 350 Assessment & Plan - Problems (Diagnosis) (1) Rash and nonspecific skin eruption Current Visit: Yes Status: Acute Plan: Patient is 55 years of age admitted with a nonspecific rash on his back probably from bedbugs (2) Severe anemia Current Visit: Yes Status: Acute Plan: He also has iron deficiency patient has been transfuse 1 unit of packed red blood cells. Albumin 1 unit of iron is no history of GI bleed probably a combination of chronic renal failure iron deficiency anemia Also need workup for blood-loss possible discharge home tomorrow if stable Discharge Plan: Home Plan to discharge in: 24 Hours
[2020-04-09 11:37] LABS: Hematocrit 21.4 % (39.6-49.0)
[2020-04-09] MEDS ORDERED: INFLUENZA VACCINE (for 3y+) 0.5 ML DOSE IMVAC ONE (12:00)
[2020-04-09] MEDS ORDERED: EPOETIN ALFA-EPBX 10,000 UNIT/ML VIAL SQ ONE (12:25)
--- NOTE | 2020-04-09 12:25 | P.CNS ---
Date of Consult: 04/09/20 Reason for Consult: CKD Primary Care Provider: Vanessa Xie, nephrology- Dr. Guillory Chief Complaint: Anemia History of Present Illness: 55-year-old male with history of CKD 4, hyperlipidemia, anemia presents emergency department for itchiness of the lower back and chest. Patient is extremely poor historian, reports he has had the itchiness for approximately 2 weeks. Patient had an CBC and BMP obtained in the emergency de partment which showed he was anemic with a hemoglobin of 6.0 and hematocrit of 18.4. MCV is 84.2. Patient also noted to have creatinine of 4.12, GFR 15, BUN 44, CO2 level was 13. Potassium within normal limits at 3.8. Patient with 1+ leukocytes on dipstick in urine microscopic showing urine white blood cells 20- 50 urine white blood cells 20-50 urine bacteria 20-50. ED provider did perform rectal exam which was negative for occult blood. ED provider wishes to admit patient for further evaluation and management. 01:38 This 55 yrs old Male presents to ER via EMS with complaints of Rash. clare 01:38 The patient's rash thought to be caused by Dermatitis. The rash is located on the back. clare The rash can be described as erythematous, flat. Onset: The symp toms/episode began/occurred today, yesterday, 2 day(s) ago. Associated signs and symptoms: Pertinent positives: burning sensation. Severity of symptoms: At their worst the symptoms were mild in the emergency department the symptoms are unchanged. The patient has not experienced similar symptoms in the past. Allergies No Known Allergies Allergy (Verified 04/09/20 04:43) Home Medications: NK [No Home Meds] 04/09/20 - Past Medical/Surgical History Diabetic: No -: Chronic kidney disease stage IV -: Hyperlipidemia -: Periorbital cyst removal -: Kidney biopsy 2016 Psychosocial/ Personal History: Patient lives at home alone and is unemployed on SSI - Family History Father Medical History: Hypertension, Cancer - Social History Alcohol use: No CD- Drugs: No Caffeine use: Yes Place of Residence: Home Review of Systems 10-point ROS is otherwise unremarkable General: Weakness, Malaise Physical Examination Temp Pulse Resp BP Pulse Ox 96.8 F 74 18 130/64 100 04/09/20 12:00 04/09/20 12:00 04/09/20 12:00 04/09/20 12:00 04/09/20 12:00 General: Oriented x3, Cooperative HEENT: Atraumatic Neck: Supple Respiratory: Clear to auscultation bilaterally Cardiovascular: No edema, Regular rate/rhythm Gastrointestinal: Soft and benign, Non-distended Musculoskeletal: No clubbing, No contractures Integumentary: No rashes, No cyanosis Laboratory Data (last 24 hrs) 04/09/20 02:40: PT 12.5, INR 1.06 04/09/20 01:55: Magnesium 2.0 04/09/20 01:55: Sodium 141, Potassium 3.8, BUN 44 H, Creatinine 4.12 H, Glucose 99, Total Bilirubin 0.2, AST 20, ALT 28, Alkaline Phosphatase 113 04/09/20 01:55: WBC 10.0, Hgb 6.0 L*, Hct 18.4 L*, Plt Count 350 Imagings Data: EXAM DESCRIPTION: RADChest Single View04/09/2020 2:53 am CLINICAL HISTORY: Coug COMPARISON: none FINDINGS: Medial right base is hazy Left lung appears clear The heart is normal size IMPRESSION: Medial right base is hazy which could indicate a mild infiltrate Conclusions/Impression: A/ Acidosis CKD IV with proteinuria HTN Moderate malnutrition Anemia in CKD Iron Deficiency YOLA/ Secondary HyperPTH Vitamin D3 Deficiency Acute cystitis? P/ Continue current POC and Medications. Gentle IVF. Start oral bicarb. Start Vitamin D and binder. Increase the dose of IV iron. Give Procrit. Transfuse PRBC as needed. Follow up urine culture. No NSAIDs. AM labs. Daily weight. Thank you kindly for the consultation.
[2020-04-09] MEDS: SODIUM BICARB 325 MG TAB PO SCH (16:10)
[2020-04-09] MEDS: SEVELAMER CARBONATE 800 MG TABLET PO SCH (16:10)
[2020-04-09] MEDS ORDERED: SOD FERRIC GLUC COMPLX/SUCROSE 125 MG in NA CHLORIDE 0.9% 100 ML IV ONE (19:45)
[2020-04-09] MEDS ORDERED: NA CHLORIDE 0.9% 100 ML ONE (20:22)
[2020-04-09] MEDS ORDERED: SOD FERRIC GLUC COMPLX/SUCROSE 62.5 MG/5 ML VIAL IV ONE (20:24)
[2020-04-10] MEDS: D5W 1,000 ML with NA BICARB 8.4% 100 MEQ IV SCH ×2 (01:27)
[2020-04-10] MEDS ORDERED: CEFTRIAXONE/SWI 1gm 1 GM/10 ML SYR IV SCH (03:00)
[2020-04-10 07:44] LABS: Phosphorus 4.7 mg/dL (2.5-4.9); Potassium 3.4 mmol/L (3.5-5.1); Uric Acid 7.6 mg/dL (3.5-7.2)
[2020-04-10 07:54] LABS: Absolute Lymphocytes (CBC) 1.1 K/uL (0.7-4.9); Basophils % 0.5 % (0-1.3); Lymphocytes % 12.8 % (15.3-44.8); RBC Red Blood Cell Count 2.45 M/uL (4.33-5.43)
[2020-04-10] MEDS ORDERED: POTASSIUM CL SA 10 MEQ TAB PO ONE (08:00)
[2020-04-10 08:08] LABS: Hematocrit 20.6 % (39.6-49.0)
[2020-04-10 08:39] LABS: Urine Appearance CLEAR; Urine Bilirubin NEGATIVE (NEG); Urine Blood 2+ (NEG); Urine Color YELLOW; Urine Glucose NEGATIVE (NEG); Urine Protein 2+ (NEG); Urine Urobilinogen 0.2 mg/dL (0.2-1.0)
[2020-04-10] MEDS: CALCITROL 0.25 MCG CAP PO SCH (09:02)
[2020-04-10] MEDS: VITAMIN D 5,000 UNIT CAP PO SCH (09:02)
[2020-04-10] MEDS: SODIUM BICARB 325 MG TAB PO SCH ×3 (09:02→16:28)
[2020-04-10] MEDS: SEVELAMER CARBONATE 800 MG TABLET PO SCH ×3 (09:02→16:28)
[2020-04-10] MEDS: SOD FERRIC GLUC COMPLX/SUCROSE 250 MG in NA CHLORIDE 0.9% 250 ML IV SCH (09:02)
[2020-04-10 09:15] LABS: Urine Bacteria <20 /HPF (NONE SEEN); Urine Culture Reflex Order REFLEXED
--- NOTE | 2020-04-10 09:31 | P.PN ---
Date of Service: 04/10/20 Vital Signs Temp Pulse Resp BP Pulse Ox 97.5 F 66 20 126/73 100 04/10/20 08:00 04/10/20 08:00 04/10/20 08:00 04/10/20 08:00 04/10/20 08:00 Medications Acetaminophen (Tylenol -Extra Strength) 500 mg PO Q4HP PRN PRN Reason: TEMP > 100' F Stop: 05/09/20 03:23 Calcitriol (Rocaltrol) 0.5 mcg PO DAILY ASHISH Stop: 05/10/20 09:01 Last Admin: 04/10/20 09:02 Dose: 0.5 mcg Documented by: Cholecalciferol (Vitamin D 5,000 Iu Cap) 5,000 unit PO DAILY ASHISH Stop: 05/10/20 09:01 Last Admin: 04/10/20 09:02 Dose: 5,000 unit Documented by: Heparin Sodium (Porcine) (Heparin 5,000 Units/Ml) 5,000 unit SQ Q12HR ASHISH Stop: 05/09/20 09:01 Last Admin: 04/09/20 09:00 Dose: Not Given Documented by: Sodium Chloride (Sodium Chloride) 250 mls @ 0 mls/hr IV .Q0M ASHISH Stop: 05/09/20 04:01 Ferric Sodium Gluconate Complex 250 mg/ Sodium Chloride 270 mls @ 135 mls/hr IV DAILY ASHISH Stop: 04/12/20 09:01 Last Admin: 04/10/20 09:02 Dose: 270 mls Documented by: Sodium Chloride (Sodium Chloride 0.45%) 1,000 mls @ 100 mls/hr IV .Q10H ASHISH Stop: 05/10/20 10:01 Ondansetron HCl (Zofran) 4 mg IV Q6HP PRN PRN Reason: NAUSEA / VOMITING Stop: 05/09/20 03:23 Sevelamer Carbonate (Renvela) 800 mg PO TIDWM ASHISH Stop: 05/09/20 17:01 Last Admin: 04/10/20 09:02 Dose: 800 mg Documented by: Sodium Bicarbonate (Sodium Bicarb 325 Mg) 650 mg PO TIDWM ASHISH Stop: 05/09/20 17:01 Last Admin: 04/10/20 09:02 Dose: 650 mg Documented by: Sodium Chloride (Normal Saline Flush) 10 ml IV BID ASHISH Stop: 05/09/20 09:01 Last Admin: 04/10/20 09:00 Dose: Not Given Documented by: Lab Results (last 24 hrs) 04/09/20 02:40: ABO/Rh A POSITIVE, Solid Phase Ab Screen Negative, Crossmatch See Detail Microbiology Results 04/09/20 02:19 Clean Catch Urine [place] Count - Preliminary >100,000 CFU/ML. 04/09/20 02:19 Clean Catch Urine - Preliminary Assessment/ Plan: Nephrology CPS stable without CP or SOB. No acute events overnight. Feeling better. Good urine output. Vitals, medications, blood work and imaging reviewed in the chart. General: Oriented x3, Cooperative HEENT: Atraumatic Neck: Supple Respiratory: Clear to auscultation bilaterally Cardiovascular: No edema, Regular rate/rhythm Gastrointestinal: Soft and benign, Non-distended Musculoskeletal: No clubbing, No contractures Integumentary: No rashes, No cyanosis Laboratory Data (last 24 hrs) 04/09/20 02:40: PT 12.5, INR 1.06 04/09/20 01:55: Magnesium 2.0 04/09/20 01:55: Sodium 141, Potassium 3.8, BUN 44 H, Creatinine 4.12 H, Glucose 99, Total Bilirubin 0.2, AST 20, ALT 28, Alkaline Phosphatase 113 04/09/20 01:55: WBC 10.0, Hgb 6.0 L*, Hct 18.4 L*, Plt Count 350 Imagings Data: EXAM DESCRIPTION: RADChest Single View04/09/2020 2:53 am CLINICAL HISTORY: Coug COMPARISON: none FINDINGS: Medial right base is hazy Left lung appears clear The heart is normal size IMPRESSION: Medial right base is hazy which could indicate a mild infiltrate Conclusions/Impression: A/ Acidosis Hematuria Hx nephrolithiasis. CKD IV with proteinuria HTN Moderate malnutrition Anemia in CKD Iron Deficiency YOLA/ Secondary HyperPTH Vitamin D3 Deficiency Acute cystitis? P/ Continue current POC and Medications. Change IVF 1/2NS. Replete potassium. Continue IV iron. Give Procrit PRN. Transfuse PRBC as needed. Follow up urine culture. Check Renal and Bladder US. Send urine for cytology. No NSAIDs. AM labs. Daily weight. Case reviewed with Dr. Sparks. May need a GI evaluation as an outpt.
--- NOTE | 2020-04-10 09:56 | P.PN ---
Subjective Date of Service: 04/10/20 Primary Care Provider: Vanessa Xie, nephrology- Dr. Guillory Chief Complaint: Anemia Subjective: Improving (No new complaints he still anemic hemoglobin is less than 7 receiving iron infusions) Review of Systems Unremarkable Physical Examination - Vital Signs Temperature: 97.5 F Blood Pressure: 126/73 Pulse: 66 Respirations: 20 Pulse Ox (%): 100 - Physical Exam General: Alert, In no apparent distress, Oriented x3 Respiratory: Clear to auscultation bilaterally Cardiovascular: No edema, Normal S1 S2 Assessment & Plan - Problems (Diagnosis) (1) Rash and nonspecific skin eruption Current Visit: Yes Status: Acute Plan: Doing better as far as the rash is concern applying calamine ointment (2) Severe anemia Current Visit: Yes Status: Acute Plan: Patient has severe anemia combination of iron deficiency and renal failure this to receive another unit of packed red blood cells in addition to IN transfusions patient to follow up with Dr. Alejo. He has had endoscopic evaluation by him in the past suddenly need to have a repeated to rule out any GI a cause of blood loss will Consul with him tomorrow
[2020-04-10] MEDS: NACHLORIDE 0.45% 1,000 ML IV SCH ×2 (10:24→20:00)
[2020-04-10] MEDS ORDERED: NA CHLORIDE 0.9% 250 ML ONE (10:29)
[2020-04-10 17:29] LABS: Hematocrit 23.2 % (39.6-49.0)
[2020-04-11] MEDS: NACHLORIDE 0.45% 1,000 ML IV SCH ×3 (05:01→16:00)
[2020-04-11 06:07] LABS: Absolute Lymphocytes (CBC) 1.2 K/uL (0.7-4.9); Basophils % 0.8 % (0-1.3); Hematocrit 25.3 % (39.6-49.0); Lymphocytes % 12.4 % (15.3-44.8); MPV 7.6 fL (7.6-11.3); RBC Red Blood Cell Count 2.97 M/uL (4.33-5.43)
[2020-04-11 06:26] LABS: Potassium 3.5 mmol/L (3.5-5.1); Uric Acid 7.2 mg/dL (3.5-7.2)
[2020-04-11] MEDS: DIPHENHYDRAMINE 25 MG TAB/CAP PO PRN ×2 (07:11→12:53)
--- NOTE | 2020-04-11 08:11 | RAD REPORT ---
EXAM DESCRIPTION: US - Urinary Bladder - 04/11/2020 7:56 am CLINICAL HISTORY: Progressive CKD. Nephrolithiasis. BPH. Hematuria. COMPARISON: No comparisons FINDINGS: No urinary bladder wall thickening or bladder wall mass identified. No stone or intralumin al filling defect identifiable. No free fluid or mass in the adjacent soft tissues. IMPRESSION: Negative bladder ultrasound.
--- NOTE | 2020-04-11 08:11 | RAD REPORT ---
EXAM DESCRIPTION: US - Renal Ultrasound-Complete - 04/11/2020 7:56 am CLINICAL HISTORY: Progressive CKD. Nephrolithiasis. BPH. Hematuria. COMPARISON: Abdomen Pelvis Wo Contrast dated 04/10/2016; RP EXAM COMPLETE dated 05/21/2013 FINDINGS: The right kidney measures 8.0 x 3.6 x 4.1 cm. The left kidney measures 9.1 x 4.9 x 4.4 cm . Cortical thickness is normal. Increased cortical echogenicity is present most likely medical renal disease. No hydronephrosis present. There are 2 calcifications in the lower pole of the right kidney matching multiple prior studies. A 2.4 centimeter complex cyst is present lateral margin of the left kidney. This is is septated cyst or 2 abutting cysts. Urinary bladder is detailed on separately requested examination. IMPRESSION: Medical renal disease is evident with no hydronephrosis. A 2.4 centimeter complex cyst in the left kidney has probably been present as far back as 2015. Optim al comparison is not available. This can be monitored with follow-up sonography in 6-12 months. Nonobstructing calculi in the lower pole of the right kidney stable back to 2016
[2020-04-11] MEDS ORDERED: POTASSIUM CL SA 10 MEQ TAB PO ONE (09:00)
[2020-04-11] MEDS: SOD FERRIC GLUC COMPLX/SUCROSE 250 MG in NA CHLORIDE 0.9% 250 ML IV SCH ×3 (09:00→13:16)
[2020-04-11] MEDS: SODIUM BICARB 325 MG TAB PO SCH ×3 (09:18→16:37)
[2020-04-11] MEDS: CALCITROL 0.25 MCG CAP PO SCH (09:18)
[2020-04-11] MEDS: SEVELAMER CARBONATE 800 MG TABLET PO SCH ×3 (09:19→16:37)
[2020-04-11] MEDS: VITAMIN D 5,000 UNIT CAP PO SCH (09:19)
[2020-04-11 10:15] LABS: Hematocrit 24.2 % (39.6-49.0); MPV 7.6 fL (7.6-11.3); RBC Red Blood Cell Count 2.86 M/uL (4.33-5.43)
[2020-04-11] MEDS ORDERED: Levofloxacin 250mg IV 250 MG/50 ML BAG IV SCH (12:00)
[2020-04-11] MEDS ORDERED: MELATONIN 5 MG TABLET PO ONE (21:14)
[2020-04-12 00:05] VITALS: O2SAT 100
[2020-04-12] MEDS: NACHLORIDE 0.45% 1,000 ML IV SCH ×3 (01:22→17:52)
[2020-04-12 06:03] LABS: Magnesium 2.1 mg/dL (1.8-2.4); Phosphorus 3.6 mg/dL (2.5-4.9)
[2020-04-12 06:04] LABS: Absolute Lymphocytes (CBC) 1.4 K/uL (0.7-4.9); Hematocrit 23.4 % (39.6-49.0); Lymphocytes % 17.1 % (15.3-44.8); MPV 7.6 fL (7.6-11.3); RBC Red Blood Cell Count 2.68 M/uL (4.33-5.43)
[2020-04-12] MEDS: SOD FERRIC GLUC COMPLX/SUCROSE 250 MG in NA CHLORIDE 0.9% 250 ML IV SCH (08:43)
[2020-04-12] MEDS: VITAMIN D 5,000 UNIT CAP PO SCH (08:44)
[2020-04-12] MEDS: CALCITROL 0.25 MCG CAP PO SCH (08:44)
[2020-04-12] MEDS: SODIUM BICARB 325 MG TAB PO SCH ×3 (08:44→17:52)
[2020-04-12] MEDS: SEVELAMER CARBONATE 800 MG TABLET PO SCH ×3 (08:44→17:52)
[2020-04-12 08:55] LABS: Blood Morphology Comment NOT SEEN (NOT SEEN); Platelet Estimate ADEQ
[2020-04-12] MEDS: AMOXICILLIN TRIHYDR 250 MG CAP PO SCH ×2 (12:09→20:41)
--- NOTE | 2020-04-12 21:46 | P.PN ---
Date of Service: 04/12/20 Vital Signs Temp Pulse Resp BP Pulse Ox 96.8 F 60 16 136/66 100 04/12/20 16:00 04/12/20 16:00 04/12/20 16:00 04/12/20 16:00 04/12/20 16:00 Medications Acetaminophen (Tylenol -Extra Strength) 500 mg PO Q4HP PRN PRN Reason: TEMP > 100' F Stop: 05/09/20 03:23 Amoxicillin (Amoxil Cap) 500 mg PO BID ASHISH Stop: 05/12/20 11:01 Last Admin: 04/12/20 20:41 Dose: 500 mg Documented by: Calcitriol (Rocaltrol) 0.5 mcg PO DAILY ASHISH Stop: 05/10/20 09:01 Last Admin: 04/12/20 08:44 Dose: 0.5 mcg Documented by: Cholecalciferol (Vitamin D 5,000 Iu Cap) 5,000 unit PO DAILY ASHISH Stop: 05/10/20 09:01 Last Admin: 04/12/20 08:44 Dose: 5,000 unit Documented by: Diphenhydramine HCl (Benadryl Tab/Cap) 25 mg PO Q6H PRN PRN Reason: ITCHING Stop: 05/11/20 05:42 Last Admin: 04/11/20 12:53 Dose: 25 mg Documented by: Heparin Sodium (Porcine) (Heparin 5,000 Units/Ml) 5,000 unit SQ Q12HR ASHISH Stop: 05/09/20 09:01 Last Admin: 04/09/20 09:00 Dose: Not Given Documented by: Sodium Chloride (Sodium Chloride) 250 mls @ 0 mls/hr IV .Q0M ASHISH Stop: 05/09/20 04:01 Ferric Sodium Gluconate Complex 250 mg/ Sodium Chloride 120 mls @ 100 mls/hr IV ONCE ONE Stop: 04/13/20 07:05 Melatonin (Melatonin) 5 mg PO BEDTIME ASHISH Stop: 05/13/20 21:01 Ondansetron HCl (Zofran) 4 mg IV Q6HP PRN PRN Reason: NAUSEA / VOMITING Stop: 05/09/20 03:23 Sevelamer Carbonate (Renvela) 800 mg PO TIDWM ASHISH Stop: 05/09/20 17:01 Last Admin: 04/12/20 17:52 Dose: 800 mg Documented by: Sodium Bicarbonate (Sodium Bicarb 325 Mg) 650 mg PO TIDWM [facility] Stop: 05/09/20 17:01 Last Admin: 04/12/20 17:52 Dose: 650 mg Documented by: Sodium Chloride (Normal Saline Flush) 10 ml IV BID [facility] Stop: 05/09/20 09:01 Last Admin: 04/12/20 20:41 Dose: 10 ml Documented by: Lab Results (last 24 hrs) 04/09/20 02:40: ABO/Rh A POSITIVE, Solid Phase Ab Screen Negative, Crossmatch See Detail Microbiology Results 04/09/20 02:19 Clean Catch Urine [place] Count - Preliminary >100,000 CFU/ML. 04/09/20 02:19 Clean Catch Urine - Final Enterococcus Faecalis Assessment/ Plan: Nephrology CPS stable without CP or SOB. No acute events overnight. Feeling better. Good urine output. Wants to go home soon. Vitals, medications, blood work and imaging reviewed in the chart. General: Oriented x3, Cooperative HEENT: Atraumatic Neck: Supple Respiratory: Clear to auscultation bilaterally Cardiovascular: No edema, Regular rate/rhythm Gastrointestinal: Soft and benign, Non-distended Musculoskeletal: No clubbing, No contractures Integumentary: No rashes, No cyanosis Laboratory Data (last 24 hrs) 04/09/20 02:40: PT 12.5, INR 1.06 04/09/20 01:55: Magnesium 2.0 04/09/20 01:55: Sodium 141, Potassium 3.8, BUN 44 H, Creatinine 4.12 H, Glucose 99, Total Bilirubin 0.2, AST 20, ALT 28, Alkaline Phosphatase 113 04/09/20 01:55: WBC 10.0, Hgb 6.0 L*, Hct 18.4 L*, Plt Count 350 Imagings Data: EXAM DESCRIPTION: [place] Single View04/09/2020 2:53 am CLINICAL HISTORY: Coug COMPARISON: none FINDINGS: Medial right base is hazy Left lung appears clear The heart is normal size IMPRESSION: Medial right base is hazy which could indicate a mild infiltrate Conclusions/Impression: A/ Acidosis Hematuria Hx nephrolithiasis. CKD IV with proteinuria HTN Moderate malnutrition Anemia in CKD Iron Deficiency YOLA/ Secondary HyperPTH Vitamin D3 Deficiency Acute cystitis P/ Continue current POC and Medications. Give another dose of IV in the morning. Give Procrit in am. Transfuse PRBC as needed. Continue abx. No NSAIDs. AM labs. Daily weight.
[2020-04-13 01:30] LABS: Hematocrit 31.2 % (39.6-49.0)
[2020-04-13] MEDS: SOD FERRIC GLUC COMPLX/SUCROSE 62.5 MG/5 ML VIAL IV ONE ×4 (04:40→06:04)
[2020-04-13] MEDS ORDERED: NA CHLORIDE 0.9% 100 ML ONE (05:15)
[2020-04-13 05:56] LABS: Absolute Lymphocytes (CBC) 1.2 K/uL (0.7-4.9); Basophils % 0.8 % (0-1.3); Hematocrit 31.1 % (39.6-49.0); Lymphocytes % 13.8 % (15.3-44.8); MPV 7.6 fL (7.6-11.3); RBC Red Blood Cell Count 3.59 M/uL (4.33-5.43)
[2020-04-13] MEDS: SOD FERRIC GLUC COMPLX/SUCROSE 250 MG in NA CHLORIDE 0.9% 250 ML IV ONE ×2 (05:58→06:03)
[2020-04-13] MEDS ORDERED: SOD FERRIC GLUC COMPLX/SUCROSE 250 MG in NA CHLORIDE 0.9% 100 ML IV ONE (06:00)
[2020-04-13 06:22] LABS: Albumin 2.4 g/dL (3.4-5.0); Bilirubin Total 0.3 mg/dL (0.2-1.0); Folic Acid, (Folate) 7.4 ng/mL (3.1-17.5); Potassium 3.7 mmol/L (3.5-5.1); Protein, Total 6.6 g/dL (6.4-8.2); Uric Acid 7.6 mg/dL (3.5-7.2)
[2020-04-13] MEDS ORDERED: POTASSIUM 25 MEQ EFFERV TAB PO ONE (06:25)
[2020-04-13] MEDS ORDERED: EPOETIN ALFA-EPBX 10,000 UNIT/ML VIAL SQ SCH (09:00)
[2020-04-13 09:17] VITALS: BP 158/80; TEMP 97.9
--- NOTE | 2020-04-13 09:43 | CON ---
Date of Consultation: 04/11/2020 Brief History Of Present Illness: The patient is a 55-year-old male known to me from [facility] endoscopy, who presents to the hospital with complaints of weakness, fatigue, and itchiness all o stevo. He is a somewhat poor historian and had significant itchiness for approximately 2 weeks. It go t progressively worse. He was found to have anemia on admission with a hemoglobin of 6 and hematocri t of 18. He is noted to have a creatinine of 4 as well. He has been seen in the hospital. Workup r eveals continued CKD stage 4, hyperlipidemia, and iron deficiency. No evidence of acute blood loss a nemia during this admission. He denies any blood loss per rectum, any hematemesis, a dark melenic st ool, any change in bowel or bladder habits. He has not had similar episodes before in the past. Past Medical History: Significant for CKD stage 4, hyperlipidemia, periorbital cyst removal, and a k idney biopsy. Home Medications: Include Lipitor. Allergies: NO KNOWN DRUG ALLERGIES. Social History: He denies smoking, alcohol, or recreational drug use. Review of Systems: Ten-point review of systems other than HPI, he admits to shortness of breath with exertion. Physical Examination: HEENT: Normocephalic. Sclerae icteric. Mucous membranes are moist. Oropharynx is clear. Neck: Supple. No JVD. Chest: Normal expansion and excursion. Cardiovascular: Regular rate and rhythm. Pulmonary: Clear to auscultation bilaterally. Abdomen: Soft, nontender, nondistended. No rebound. No guarding. No focal peritonitis. Extremities: No clubbing, cyanosis, or edema. Skin: Warm and dry. Laboratory Data: White blood cell count of 9.9; hemoglobin was 6 on admission, now 8.3 after my eval uation; hematocrit is 24.2 on my evaluation. His neutrophils are 80%. His sodium is 142, potassium 3.5, chloride 113, carbon dioxide 19, BUN 46, creatinine 3.7, glucose is 86. His uric acid was 7.2. Calcium 8.5. He had a chest x-ray on admission on 04/09, which is officially read as mild right bas ilar hazy, which could indicate a mild infiltrate. Assessment And Plan: This is a 55-year-old male, who comes in with multiple medical problems includi ng anemia, likely medical anemia. 1.Continue medical management. 2.Nephrology consultation pending. 3.Dr. Sparks's recommendations appreciated. 4.I will discuss the endoscopic options and will consider endoscopy as an outpatient to rule out a p ossible gastrointestinal source of bleeding as he has not had an EGD, he has only had a colonoscopy. I have discussed risks, benefits, and alternatives of this plan. However, no need to proceed on an emergent basis. We will likely proceed as an outpatient basis should his hemoglobin remained stable. I have explained the risks, benefits, and alternatives of the above stated plan. MARIELLE/MISSY Voice ID: [id number] Report ID: [id number]
--- NOTE | 2020-04-13 09:43 | P.PN ---
Subjective Date of Service: 04/11/20 PATIENT IS DOING WELL. SPOKE TO NEPHROLOGY AND THEY WOULD PREFER REPEAT H&H IN THE MORNING AND GI CONSULTATION. I SPOKE WITH PATIENT AND HE STATES THE GENERAL SURGERY IS MONITORING HIM. THEY WILL DO OUTPATIENT ENDOSCOPY. Review of Systems 10-point ROS is otherwise unremarkable Physical Examination - Vital Signs Temperature: 97.9 F Blood Pressure: 158/80 Pulse: 59 Respirations: 20 Pulse Ox (%): 99 - Physical Exam General: Alert, In no apparent distress, Oriented x3 Respiratory: Clear to auscultation bilaterally, Normal air movement Cardiovascular: Regular rate/rhythm, Normal S1 S2, No murmurs Gastrointestinal: Normal bowel sounds, Soft and benign, Non-distended, No tenderness Musculoskeletal: No clubbing, No swelling, No tenderness Integumentary: No rashes Neurological: Normal strength at 5/5 x4 extr, Normal tone, Sensation intact, Cranial nerves 3-12 intact - Studies Medications List Reviewed: Yes Assessment & Plan - Problems (Diagnosis) (1) Urinary tract infection Current Visit: Yes Status: Acute (2) Severe anemia Current Visit: Yes Status: Acute (3) Anemia due to acute blood loss Current Visit: No Status: Acute (4) Fever Current Visit: No Status: Acute Qualifiers: Fever type: other Qualified Code(s): R50.81 - Fever presenting with conditions classified elsewhere (5) 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 CONTINUE WITH IV ANTIBIOTICS 2. MONITOR H&H 3. IRON SUPPLEMENTATION 4. CHECK B12 FOLIC ACID LEVEL 5. MONITOR RENAL FUNCTION CLOSELY-CLOSE OUTPATIENT FOLLOW-UP HE MAY NEED DIALYSIS IF HIS RENAL FUNCTION CONTINUES WORDS 6. PHYSICAL THERAPY/NURSING INTERVENTION TEST AMBULATE 7. MONITOR HEMATURIA AND OUTPATIENT UROLOGY FOLLOW-UP; BLADDER SCAN AND RENAL ULTRASOUND UNREMARKABLE EXCEPT FOR NONOBSTRUCTIVE NEPHROLITHIASIS 8. OUTPATIENT FOLLOW WITH GENERAL SURGERY FOR ENDOSCOPY 9. GI AND DVT PROPHYLAXIS Discharge Plan: Home Plan to discharge in: Greater than 2 days - Advance Directives Does patient have a Living Will: No Does patient have a Durable POA for Healthcare: No - Code Status/Comfort Care Code Status Assessed: Yes Code Status: Full Code Critical Care: No Time Spent Managing PTS Care (In Minutes): 35
--- NOTE | 2020-04-13 09:45 | P.DS ---
Discharge Date: 04/13/20 Primary Care Provider: Vanessa Xie, nephrology- Dr. 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 Patient is extremely poor historian, reports he has had the itchiness for approximately 2 weeks. Patient had an CBC and BMP obtained in the emergency department which showed he was anemic with a hemoglobin of 6.0 and hematocrit of 18.4. MCV is 84.2. Patient also noted to have creatinine of 4.12, GFR 15, BUN 44, CO2 level was 13. Potassium within normal limits at 3.8. Patient with 1+ leukocytes on dipstick in urine microscopic showing urine white blood cells 20- 50 urine white blood cells 20-50 urine bacteria 20-50. ED provider did perform rectal exam which was negative for occult blood. ED provider wishes to admit patient for further evaluation and management. Hospital Course: Patient's hemoglobin continued to drop. We went ahead and transfuse patient a couple more units of packed red blood cells. Patient's hemoglobin is stable. Patient's renal function is stable. At this time, patient is stable for discharge with outpatient follow-up with Nephrology and PCP. Vital Signs/Physical Exam: Temp Pulse Resp BP Pulse Ox 97.9 F 59 20 158/80 H 99 04/13/20 09:45 04/13/20 09:45 04/13/20 09:45 04/13/20 09:45 04/13/20 09:45 General: Alert, In no apparent distress, Oriented x3 Laboratory Data at Discharge: WBC 8.5 K/uL (4.3-10.9) 04/13/20 05:21 Hgb 10.5 g/dL (13.6-17.9) L 04/13/20 05:21 Hct 31.1 % (39.6-49.0) L 04/13/20 05:21 Plt Count 295 K/uL (152-406) 04/13/20 05:21 PT 12.5 SECONDS (9.5-12.5) 04/09/20 02:40 INR 1.06 04/09/20 02:40 Sodium 143 mmol/L (136-145) 04/13/20 05:21 Potassium 3.7 mmol/L (3.5-5.1) 04/13/20 05:21 BUN 39 mg/dL (7-18) H 04/13/20 05:21 Creatinine 3.72 mg/dL (0.55-1.3) H 04/13/20 05:21 Glucose 84 mg/dL (74-106) 04/13/20 05:21 Uric Acid 7.6 mg/dL (3.5-7.2) H 04/13/20 05:21 Phosphorus 3.6 mg/dL (2.5-4.9) 04/12/20 05:41 Magnesium 2.1 mg/dL (1.8-2.4) 04/12/20 05:41 Total Bilirubin 0.3 mg/dL (0.2-1.0) 04/13/20 05:21 AST 29 U/L (15-37) 04/13/20 05:21 ALT 31 U/L (12-78) 04/13/20 05:21 Alkaline Phosphatase 100 U/L (45-117) 04/13/20 05:21 Home Medications: Amoxicillin [Amoxil Cap*] 500 mg PO BID #14 cap 04/13/20 Calcitrol [Rocaltrol*] 0.5 mcg PO DAILY #30 cap 04/13/20 Cholecalciferol (Vitamin D3) [Vitamin D 5,000 IU Cap*] 5,000 unit PO DAILY #30 cap 04/13/20 Ferrous Gluconate [Fergon] 240 mg PO DAILY #30 tablet 04/13/20 Melatonin 5 mg PO BEDTIME #30 tablet 10/07/20 Na Bicarb Tab [Sodium Bicarb 325 MG Tab*] 650 mg PO TIDWM #240 tab 04/13/20 Sevelamer Carbonate [Renvela*] 800 mg PO TIDWM #90 tablet 04/13/20 New Medications: Amoxicillin [Amoxil Cap*] 500 mg PO BID #14 cap Ferrous Gluconate [Fergon] 240 mg PO DAILY #30 tablet Melatonin 5 mg PO BEDTIME #30 tablet Sevelamer Carbonate [Renvela*] 800 mg PO TIDWM #90 tablet Calcitrol [Rocaltrol*] 0.5 mcg PO DAILY #30 cap Na Bicarb Tab [Sodium Bicarb 325 MG Tab*] 650 mg PO TIDWM #240 tab Cholecalciferol (Vitamin D3) [Vitamin D 5,000 IU Cap*] 5,000 unit PO DAILY #30 cap Patient Discharge Instructions: OK TO DC IV AND DC HOME. FOLLOW-UP WITH PRIMARY CARE PROVIDER IN 1-2 WEEKS. FOLLOW-UP WITH Nephrology IN 1-2 WEEKS. FOLLOW-UP WITH SURGERY IN 1-2 WEEKS FOR POSSIBLE ENDOSCOPY. PATIENT MAY NEED HEMATOLOGY FOLLOW-UP TO WORKUP THE ANEMIA IN THE NEAR FUTURE. RETURN TO THE ER IF symptoms worsen. CALL or TEXT DR. BANEGAS AT [phone] IF ANY QUESTIONS REGARDING HOSPITAL STAY. PLEASE CALL THE FLOOR AT [phone] IF ANY MEDICATION OR NURSING QUESTIONS. Diet: Regular Activity: Fall precautions Followup: Brayden Gutierrez DO [ACTIVE - CAN ADMIT] - Farzad Pace MD [ACTIVE - CAN ADMIT] - Time spent managing pt's care (in minutes): 35
--- NOTE | 2020-04-13 09:45 | P.PN ---
Subjective Date of Service: 04/12/20 HEMOGLOBIN HAS DECREASED. TRANSFUSING 2 MORE UNITS OF PACKED RED BLOOD CELLS. SURGERY TO FOLLOW-UP FOR OUTPATIENT ENDOSCOPY. OUTPATIENT HEMATOLOGY FOLLOW-UP WELL Review of Systems 10-point ROS is otherwise unremarkable Physical Examination - Vital Signs Temperature: 97.9 F Blood Pressure: 158/80 Pulse: 59 Respirations: 20 Pulse Ox (%): 99 - Physical Exam General: Alert, In no apparent distress, Oriented x3 Respiratory: Clear to auscultation bilaterally, Normal air movement Cardiovascular: Regular rate/rhythm, Normal S1 S2, No murmurs Gastrointestinal: Normal bowel sounds, Soft and benign, Non-distended, No tenderness Musculoskeletal: No clubbing, No swelling, No tenderness Neurological: Normal speech, Normal tone, Normal affect Lymphatics: No axilla or inguinal lymphadenopathy - Studies Medications List Reviewed: Yes Assessment & Plan - Problems (Diagnosis) (1) Urinary tract infection Current Visit: Yes Status: Acute (2) Severe anemia Current Visit: Yes Status: Acute (3) Anemia due to acute blood loss Current Visit: No Status: Acute (4) Fever Current Visit: No Status: Acute Qualifiers: Fever type: other Qualified Code(s): R50.81 - Fever presenting with conditions classified elsewhere (5) 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 CONTINUE WITH IV ANTIBIOTICS 2. HH DECREASED AND WILL TRANSFUSE 2 UNITS OF PACKED RED BLOOD CELLS 3. IRON SUPPLEMENTATION 4. CHECKED B12 FOLIC ACID LEVEL WHICH ARE WITHIN NORMAL LIMITS 5. MONITOR RENAL FUNCTION CLOSELY-CLOSE OUTPATIENT FOLLOW-UP HE MAY NEED DIALYSIS IF HIS RENAL FUNCTION CONTINUES WORDS 6. AMBULATE 7. HEMATURIA STABLE 8. OUTPATIENT FOLLOW WITH GENERAL SURGERY FOR ENDOSCOPY 9. GI AND DVT PROPHYLAXIS Discharge Plan: Home Plan to discharge in: Greater than 2 days - Advance Directives Does patient have a Living Will: No Does patient have a Durable POA for Healthcare: No - Code Status/Comfort Care Code Status: Full Code Critical Care: No Time Spent Managing PTS Care (In Minutes): 35
[2020-04-13] MEDS: VITAMIN D 5,000 UNIT CAP PO SCH (09:48)
[2020-04-13] MEDS: AMOXICILLIN TRIHYDR 250 MG CAP PO SCH (09:48)
[2020-04-13] MEDS: SODIUM BICARB 325 MG TAB PO SCH (09:49)
[2020-04-13] MEDS: CALCITROL 0.25 MCG CAP PO SCH (09:49)
[2020-04-13] MEDS: SEVELAMER CARBONATE 800 MG TABLET PO SCH (09:49)
[2020-04-13] MEDS ORDERED: MELATONIN 5 MG TABLET PO SCH (21:00)
--- OUTSIDE RECORDS SUMMARY | 2020-04-13 22:16 | XMS REPORT | Continuity of Care Document ---
:1965 Author Organization [facility] t Address [address] [place] [address] Care Team Providers Name Role Phone Julian [...] Clinicians Facility Department ID 2019-12-30 2019-12-30 [id number] 00:00:00 00:00:00 Chaz Turner [id number] [place] [id number] Professio [phone] [address] 059 Building 2019-12-23 2019-12-23 [facility] [id number] 09:05:47 23:17:42 Visit Chaz Turner [id number] [place] [id number] Professio [phone] [facility] Results This patient has no known results.
[2020-04-14 11:12] LABS: Immunoglobulin A 285 mg/dL (47-310); Immunoglobulin G 467 mg/dL (600-1640); Immunoglobulin M 171 mg/dL (50-300)
== END 2020-04-13 10:54 | disposition home or self-care (01) | DRG 811 ==
LOC: ER 01:25 → ERHOLD 03:06 → 2ND 04:26 → OBSVTOIN 04-10 09:56
PROVIDERS: ADMIT Internal Medicine Sleep Medicine; ATTEND Hospitalist
PROC: 30233N1 Transfusion of Nonautologous Red Blood Cells into Peripheral Vein, Percutaneous Approach (ICD-10-PCS; principal; 2020-04-10)
DX: D62 Acute posthemorrhagic anemia (principal); J18.0 Bronchopneumonia, unspecified organism; N18.4 Chronic kidney disease, stage 4 (severe); E87.2 Acidosis; E44.0 Moderate protein-calorie malnutrition; N25.81 Secondary hyperparathyroidism of renal origin; N30.01 Acute cystitis with hematuria; E78.5 Hyperlipidemia, unspecified; D50.9 Iron deficiency anemia, unspecified; D63.1 Anemia in chronic kidney disease; E55.9 Vitamin D deficiency, unspecified; N25.0 Renal osteodystrophy; L30.9 Dermatitis, unspecified; F32.9 Major depressive disorder, single episode, unspecified; I12.9 Hypertensive chronic kidney disease with stage 1 through stage 4 chronic kidney disease, or unspecified chronic kidney disease; R21 Rash and other nonspecific skin eruption; R50.81 Fever presenting with conditions classified elsewhere; Z60.2 Problems related to living alone; Z56.0 Unemployment, unspecified; Z79.899 Other long term (current) drug therapy; Z68.31 Body mass index [BMI] 31.0-31.9, adult
CPT/HCPCS: 36415; 36430; 71045; 76770; 76857; 80048; 80053; 81001; 81003; 81015; 82607; 82728; 82746; 82784; 83520; 83540; 83605; 83735; 83880; 84100; 84466; 84484; 84550; 85014; 85018; 85025; 85027; 85610; 85652; 86021; 86038; 86850; 86900; 86901; 87077; 87086; 87088; 87186; 88108; 93005; 96365; 96375; 99285; G0378; J0696; J1200; J1644; J1940; J2916; J2930; J7030; J7050; J7512; P9016; Q5106

== ENCOUNTER 2024-11-05 13:50 | Emergency (ER) | payer OTHER, SELFPAY ==
--- OUTSIDE RECORDS SUMMARY | 2024-11-05 13:55 | XMS REPORT | Continuity of Care Document ---
Author Name Unknown Address [address] [facility] [address] [place] [address] [facility] [place] Address [address] [facility] [address] [place] [address] Care Team Providers Care Warm In Worker Name Role Phone Joyce Tigist L Primary Care Physician [phone] Vanessa Xie Attending Clinician Unavailable CRISTEL TRUONG Attending Clinician Unavailable GAMALIEL MCCARTY Attending Clinician Unavailable CHAZ AUSTIN Attending Clinician Unavailable Doctor Unassigned, [place] Attending Clinician U woo Austin MD, Chaz Attending Clinician [phone] Panda Gustafson DO Attending Clinician [phone] HUAN DIAZ Attending Clinician Unavailable Huan Diaz DO Attending Clinician [phone] Jackelyn Rausch MD Attending Clinician [phone] Rush Clarke CRNA Attending Clinician [phone] Camron Vitale MD Attending Clinician [phone], [facility] Attending Clinician Unavailable Cristel Truong MD Attending Clinician [phone] Sania Mccall MD Attending Clinician [phone] MAXIMILIANO BUCIO Attending Clinician Unavailabl e Only, [facility] Test Attending Clinician Unavailable Maximiliano Bucio MD Attending Clinician [phone] , [facility] Echo Room 1 - Attending Clinician Unamana lable Valle MD, Blaine Espinoza Attending Clinician + [phone] BLAINE VALLE Attending Clinician UnavailCRISTEL Kraus Admitting Clinician Unavailable CHAZ AUSTIN Admitting Clinician Unavailable JACKELYN RAUSCH Admitting Clinician Unavailable Shalom VALE, Jackelyn Admitting Clinician [phone] Gamaliel Mccarty MD Admitting Clinician [phone] Cristel Truong MD Admitting Clinician [phone] Payers Payer Name Policy Type Policy Number Effective Date Expirati on Date Source [employer] MEDICAID [id number] 2011 00:00:00 Problems Condition Name Condition Details Condition Category Status Onset Date Resolution Date Last Treatment Date Treating Clinician Comments Source Hyperlipid emia, unspecifie d hyperlipid emia type Hyperlipid emia, unspecifie d hyperlipid emia type Disease Active 2022-07 0-04 00:00: 00 [facility] DAWN (dyspnea on exertion) DAWN (dyspnea on exertion) Disease Active 2022-07 0-04 00:00: 00 [facility] CKD (chronic kidney disease), symptom management only, stage 5 CKD (chronic kidney disease), symptom management only, stage 5 Disease Active 2022-07 0-04 00:00: 00 [facility] Family history of coronary artery disease Family history of coronary artery disease Disease Active 2022-07 0-04 00:00: 00 [facility] Ascending aorta dilatation Ascending aorta dilatation Disease Active 2022-07 0-04 00:00: 00 [facility] Elevated brain natriureti c peptide (BNP) level Elevated brain natriureti c peptide (BNP) level Disease Active 2022-07 0-04 00:00: 00 [facility] Elevated brain natriureti c peptide (BNP) level Elevated brain natriureti c peptide (BNP) level Disease Active 2022-07 0-04 00:00: 00 [facility] Anemia Anemia Disease Active 2022-07 0- 00:00: 00 [facility] Other chest pain Other chest pain Disease Active 2022-07 0-01 00:00: 00 [facility] Obesity (BMI 30-39.9) Obesity (BMI 30-39.9) Disease Active 2- 00:00: 00 [facility] CKD (chronic kidney disease) stage 5, GFR less than 15 ml/min CKD (chronic kidney disease) stage 5, GFR less than 15 ml/min Disease Active 1-05 00:00: 00 Overview: Formattin g of this note might be different from the original. Added automatic ally from request for surgery [id number] [facility] No known active problems No known active problems Disease [facility] Allergies, Adverse Reactions, Alerts Allergy Name Allergy Type Status Severity Reaction(s) Onset Date Inactive Date Treating Clinician Comments Source FLUOXETI NE DRUG INGREDI Active Med Other-Cmnt 02-24 00:00: 00 [facility] Fluoxeti ne Drug Allergy Active Other - See comments 02-24 00:00: 00 [facility] NO KNOWN ALLERGIE S Drug Class Active [facility] Social History Social Habit Start Date Stop Date Quantity Comments Source Gender identity [facility] Sexual orientation U [facility] Tobacco use and exposure 2023-04-07 00:00:00 2023-04-07 00:00:00 Smokeless tobacco non-user [facility] History of Social function 2022-08-09 00:00:00 2022-08-09 00:00:00 [facility] Exposure to SARS-CoV-2 (event) 2022-07-24 00:00:00 2022-08-03 14:33:00 Not sure [facility] Sex Assigned At 1965 00:00:00 1965 00:00:00 [facility] Smoking Status Start Date Stop Date Source Never smoked tobacco [facility] Medications Ordered Medication Name Filled Medication Name Start Date Stop Date Current Medication? Ordering Clinician Indication Dosage Frequency Signature (SIG) Comments Components Source CO2-Releasi ng 0.9-0.6 gram Supp 4-04 14:31: 24 Yes Insert into rectum. [facility] NaCl 0.9% (NS) IV infusion 250 mL 2022-07 19:30: 00 Yes [id number] 250mL at 20 mL/hr, IV Infusion, CONTINUOUS , Starting on Sat05/01/23 at 1430, Until Discontinu ed, Routine
To keep vein open
[facility] sulfur hexafluorid e microsphr (LUMASON) injection 5 mL 2022-07 19:15: 00 05-01 19:00 :00 No [id number] 5mL 5 mL, Slow IV Push, ONCE, 1 dose, On Sat05/01/23 at 1415, Routine
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
No te and document the precise time that this is 3. ac complished . Begin the count with the EKG system's DSE applicatio n program. This is time zero.&nbsp ; At 2 minutes and 30 seconds after beginning the initial dosing, acquire parasterna l long axis and parasterna l short axis view at papillary level, apical 4 chamber, 2 chamber and apical long axis view, and BP At the 3 minute interval, simultaneo usly obtain a 12 lead EKG, heart rate and 02 saturation and increase the Dobutamine infusion to 10 mcg/kg/min . At the 5 minutes and 30 second interval, acquire parasterna l long axis and parasterna l short&nbsp ;axis view at papillary level, apical 4 chamber, 2 chamber and apical long axis view and measure BP. At the 6 minute interval, simultaneo usly obtain a 12 lead EKG, heart rate and 02saturati on an d increase the Dobutamine infusion to 20 mcg/kg/min . At the 8 minutes and 30 second interval, acquire parasterna l long axis and parasterna l short& nbsp;axis view at papillary level, apical 4 chamber, 2 chamber and apical long axis view and measure BP. At the 9 minute interval, simultaneo usly obtain a 12 lead EKG, heart rate and 02 saturation and increase the Dobutamine infusion to 30 mcg/kg/min . (see Adjunctive Therapy)&n bsp; At the 11 minutes and 30 second interval, acquire parasterna l long axis and parasterna l short&nbsp ;axis view at papillary level, apical 4 chamber, 2 chamber and apical long axis view and m easure BP. At the 12 minute interval, simultaneo usly obtain a 12 lead EKG, heart rate and 02 saturation and increase the Dobutamine infusion to 40 mcg/kg/min . (see Adjunctive Therapy&nb sp; At the 14 minutes and 30 second interval, acquire parasterna l long axis and parasterna l short&nbsp ;axis view at papillary level, apical 4 chamber, 2 chamber and apical long axis view and m easure BP. At the 15 minute interval, simultaneo usly obtain a 12 lead EKG, heart rate and 02 saturation and terminate the Dobutamine infusion. (see Adjunctive Therapy)<b r> [facility] ferrous sulfate tablet 325 mg 2022-07 14:00: 00 Yes 325mg 325 mg, Oral, QMON// SAT, First dose (after last modificati on) on Sat04/10/23 at 0900, Until Discontinu ed, Routine [facility] ferrous sulfate 325 mg (65 mg iron) tablet 2022-07 0 00:00: 00 07-10 05:59 :00 No [id number] 325mg Take 1 tablet by mouth every Saturday, Saturday and Saturday for 90 days. [facility] atorvastati n (LIPITOR) tablet 20 mg 2022-07 02:00: 00 Yes 20mg 20 mg, Oral, QHS, First dose on Sat04/08/23 at 2100, Until Discontinu ed, Routine [facility] CO2-Releasi ng 0.9-0.6 gram Supp 2022-07 17:27: 34 Yes Insert into rectum. [facility] ketorolac tromethamin e (TORADOL ORAL) 2022-07 15:54: 11 04-08 00:00 :00 No 25mg Take 25 mg by mouth. [facility] ferrous sulfate 325 mg (65 mg iron) tablet 2022-07 15:54: 11 04-08 00:00 :00 No 325mg Take 1 tablet by mouth in the morning and 1 tablet at noon and 1 tablet in the evening. Take with meals. [facility] ferrous gluconate 256 mg (28 mg iron) Tab 2022-07 15:54: 11 04-08 00:00 :00 No 246mg Take 246 mg by mouth. [facility] iron sucrose (VENOFER) 200 mg in NaCl 0.9% (NS) 100 mL infusion 2022-07 15:45: 00 04-08 18:33 :00 No 200mg 200 mg, IV Infusion, ONCE, Administer over 1.5 Hours, On Sat04/08/23 at 1045, For 1 dose [facility] sodium bicarbonate (ANTACID (SODIUM BICARBONATE )) tablet 650 mg 2022-07 13:00: 00 Yes 650mg 650 mg, Oral, TID, First dose on Sat04/08/23 at 0800, Until Discontinu ed, Routine [facility] heparin (porcine) injection 5,000 Units 2022-07 13:00: 00 Yes 5000U 5,000 Units, Subcutaneo us, Q12H, First dose on Sat04/08/23 at 0800, Until Discontinu ed, Routine [facility] ferrous sulfate tablet 325 mg 2022-07 13:00: 00 04-08 17:12 :37 No 325mg 325 mg, Oral, TID MEALS, First dose on Sat04/08/23 at 0800, Until Discontinu ed, [facility] 50 mcg 2022-07 11:00: 00 Yes 50ug 50 mcg, Oral, QAM-0600, First dose on Sat04/08/23 at 0600, Until Discontinu ed, Routine [facility] pantoprazol e (PROTONIX) EC tablet 40 mg 2022-07 05:45: 00 Yes 40mg 40 mg, Oral, BID, First dose on Sat04/08/23 at 0045, Until Discontinu ed, Routine [facility] NaCl 0.9% (NS) IV Line Priming and Flushing Fluid Only 250 mL 2022-07 04:15: 00 04-08 06:25 :00 No 250mL 250 mL, IV Infusion, ONCE, 1 dose, On Sat04/07/23 at 2315, 250 mL [facility] melatonin (MELATIN) tablet 3 mg 2022-07 03:15: 00 Yes 3mg 3 mg, Oral, QHS, First dose on Sat04/07/23 at 2215, Until Discontinu ed, Routine [facility] acetaminoph en (TYLENOL) tablet 650 mg 2022-07 03:05: 28 Yes 650mg 650 mg, Oral, Q6HPRN, Starting on Sat04/07/23 at 2205, Until Discontinu ed, Routine, Pain (scale 1-3) [facility] Cholecalcif dayana, Vitamin D3, 50 mcg (2,000 unit) capsule 2022-07 00:32: 37 04-08 00:00 :00 No 2000U Take 1 capsule by mouth. [facility] sodium bicarbonate 650 mg tablet 2022-07 00:32: 37 04-08 00:00 :00 No 650mg Take 1 tablet by mouth. [facility] fenofibrate 48 mg tablet 2022-07 00:32: 37 04-08 00:00 :00 No 48mg Take 1 tablet by mouth. [facility] levothyroxi ne 50 mcg tablet 02-27 00:00: 00 02-27 04:59 :00 No 50ug Take 1 tablet by mouth. [facility] ergocalcife rol, vitamin d2, 1,250 mcg (50,000 unit) capsule 02-27 00:00: 00 04-08 00:00 :00 No [id number] Take 1 capsule by mouth. [facility] atorvastati n 20 mg tablet 12-27 00:00: 00 Yes 20mg Take 1 tablet by mouth at bedtime. [facility] amitriptyli ne 25 mg tablet 08-29 00:00: 00 04-08 00:00 :00 No 25mg Take 1 tablet by mouth. [facility] lactated ringers IV infusion 1,000 mL 08-09 15:45: 00 Yes 1000mL at 75 mL/hr, 1,000 mL, IV Infusion, CONTINUOUS , Starting on Niurka 08/09/22 at 0945, Until Discontinu ed, Routine, PACU [facility] HYDROcodone -acetaminop hen (NORCO 5) 5-325 mg tablet 1 tablet 08-09 15:38: 36 Yes 1{tbl} 1 tablet, Oral, PRN, 1 dose, Starting on Niurka 08/09/22 at 0938, Until Discontinu ed, Routine, Pain (scale 4-6), DSU Recovery [facility] acetaminoph en (TYLENOL) tablet 650 mg 08-09 15:38: 33 Yes 650mg 650 mg, Oral, PRN, 1 dose, Starting on Niurka 08/09/22 at 0938, Until Discontinu ed, Routine, Pain (scale 1-3), DSU Recovery [facility] FENTanyl PF (SUBLIMAZE (PF)) injection 25 mcg 08-09 15:36: 43 Yes 25ug 25 mcg, Slow IV Push, Q5MIN PRN, 4 doses, Starting on Niurka 2/23 at 0936, Until Discontinu ed, Routine, Pain (scale 4-6), PACU [facility] HYDROmorphO ne (DILAUDID) injection 0.2 mg 08-09 15:36: 43 Yes .2mg 0.2 mg, Slow IV Push, Q5MIN PRN, 10 doses, Starting on Niurka 08/09/22 at 0936, Until Discontinu ed, Routine, Pain (scale 7-10), PACU
Us e approved by (Faculty): PACU USE -ANESTHESI A SERVICE-HY DROMORPHON E INJECTIONS [facility] ondansetron (ZOFRAN (PF)) injection 4 mg 08-09 15:36: 43 Yes 4mg 4 mg, Slow IV Push, PRN, 1 dose, Starting on Niurka 08/09/22 at 0936, Until Discontinu ed, Routine, Nausea and Vomiting (N/V), PACU [facility] heparin 25,000 Units/250 mL (Premixed Bag) in 0.45 % NS 08-09 15:10: 00 08-09 15:36 :28 No CONTINUOUS PRN, Starting on Niurka 08/09/22 at 0910, Until [place]ur[place] 08/09/22 at 0936, Routine, Intra-op [facility] heparin (1,000 unit/mL, 10 mL vial) 08-09 14:29: 00 08-09 15:31 :42 No ONCE INTRA PROCEDURE, Starting on Niurka 08/09/22 at 0829, Until Discontinu ed, Routine, Intra-op [facility] NaCl 0.9% (NS) IV infusion 08-09 14:20: 00 08-09 15:36 :28 No CONTINUOUS PRN, Starting on Niurka 08/09/22 at 0820, Until [place] 08/09/22 at 0936, Routine, Intra-op [facility] ceFAZolin (ANCEF) injection 08-09 13:50: 00 08-09 15:31 :42 No IV Piggyback, ONCE INTRA PROCEDURE, Starting on Niurka 08/09/22 at 0750, Until Discontinu ed, DMITRIY, Intra-op [facility] propofoL IV infusion 08-09 13:48: 00 08-09 15:31 :42 No Intravenou s, ONCE INTRA PROCEDURE, Starting on Niurka 08/09/22 at 0748, Until Discontinu ed, Routine, Intra-op [facility] lidocaine 1% (XYLOCAINE) 100 mg/10 mL (1 %) injection 08-09 13:48: 00 08-09 15:31 :42 No Intravenou s, ONCE INTRA PROCEDURE, Starting on Nuirka 08/09/22 at 0748, Until Discontinu ed, Routine, Intra-op [facility] FENTanyl PF (SUBLIMAZE (PF)) injection 08-09 13:48: 00 08-09 15:31 :42 No Intravenou s, ONCE INTRA PROCEDURE, Starting on Niurka 08/09/22 at 0748, Until Discontinu ed, Routine, Intra-op [facility] NaCl 0.9% (NS) bolus infusion 250 mL 08-09 13:45: 00 08-09 13:45 :00 No 250mL at 999 mL/hr, 250 mL, IV Piggyback, ONCE, 1 dose, On Niurka 08/09/22 at 0745, Routine, DSU Pre-op [facility] ondansetron (ZOFRAN (PF)) injection 08-09 13:40: 00 08-09 15:31 :42 No Slow IV Push, ONCE INTRA PROCEDURE, Starting on Niurka 08/09/22 at 0740, Until Discontinu ed, Routine, Intra-op [facility] lactated ringers IV infusion 08-09 13:40: 00 08-09 15:31 :42 No IV Infusion, CONTINUOUS PRN, Starting on Niur[place] 08/09/22 at 0740, Until Discontinu ed, Routine, Intra-op [facility] midazolam (VERSED) injection 08-09 13:40: 00 08-09 15:31 :42 No IV Push, ONCE INTRA PROCEDURE, Starting on Niurka 08/09/22 at 0740, Until Discontinu ed, Routine, Intra-op [facility] ketorolac tromethamin e (TORADOL ORAL) 08-09 10:41: 47 Yes 25mg Take 25 mg by mouth. [facility] CO2-Releasi ng 0.9-0.6 gram Supp 08-09 10:41: 47 Yes Insert into rectum. [facility] ferrous sulfate 325 mg (65 mg iron) tablet 08-09 10:41: 47 Yes 325mg Take 325 mg by mouth 3 (three) times daily with meals. [facility] ergocalcife rol, vitamin D2, (VITAMIN D ORAL) 07-17 13:48: 41 07-17 00:00 :00 No Take by mouth. [facility] ketorolac tromethamin e (TORADOL ORAL) 07-17 13:43: 36 Yes 25mg Take 25 mg by mouth. [facility] CO2-Releasi ng 0.9-0.6 gram Supp 07-17 13:43: 36 Yes Insert into rectum. [facility] ferrous sulfate 325 mg (65 mg iron) tablet 07-17 13:43: 36 Yes 325mg Take 325 mg by mouth 3 (three) times daily with meals. [facility] amitriptyli ne 25 mg tablet 2021-07 00:00: 00 Yes 1{tbl} Take 1 tablet by mouth in the morning. [facility] amitriptyli ne 25 mg tablet 2021-07 00:00: 00 Yes 25mg Take 1 tablet by mouth in the morning. [facility] fenofibrate 48 mg tablet 2021-07 00:00: 00 Yes 1{tbl} Take 1 tablet by mouth in the morning. [facility] sodium bicarbonate 650 mg tablet 2021-07 00:00: 00 Yes 1{tbl} Take 1 tablet by mouth in the morning and 1 tablet at noon and 1 tablet in the evening. [facility] fenofibrate 48 mg tablet 2021-07 00:00: 00 Yes 48mg Take 1 tablet by mouth in the morning. [facility] sodium bicarbonate 650 mg tablet 2021-07 00:00: 00 Yes 650mg Take 1 tablet by mouth in the morning and 1 tablet at noon and 1 tablet in the evening. [facility] atorvastati n 20 mg tablet 12-27 00:00: 00 12-28 04:59 :00 No 20mg Take 20 mg by mouth in the morning. [facility] ergocalcife rol, vitamin D2, (VITAMIN D ORAL) 04-05 15:43: 28 Yes Take by mouth. [facility] CO2-Releasi ng 0.9-0.6 gram Supp 04-05 15:43: 28 Yes Insert into rectum. [facility] ferrous sulfate 325 mg (65 mg iron) tablet 04-05 15:43: 28 Yes 325mg Take 325 mg by mouth 3 (three) times daily with meals. [facility] ergocalcife rol, vitamin D2, (VITAMIN D ORAL) 02-23 15:40: 42 Yes Take by mouth. [facility] ketorolac tromethamin e (TORADOL ORAL) 02-23 15:40: 42 Yes 25mg Take 25 mg by mouth. [facility] CO2-Releasi ng 0.9-0.6 gram Supp 02-23 15:40: 42 Yes Insert into rectum. [facility] ferrous sulfate 325 mg (65 mg iron) tablet 02-23 15:40: 42 Yes 325mg Take 325 mg by mouth 3 (three) times daily with meals. [facility] atorvastati n 20 mg tablet 02-23 00:00: 00 07-17 00:00 :00 No [id number] 20mg Take 1 tablet by mouth daily. [facility] ergocalcife rol, vitamin D2, (VITAMIN D ORAL) 2019-07 18:26: 23 Yes Take by mouth. [facility] ketorolac tromethamin e (TORADOL ORAL) 2019-07 18:26: 23 Yes 25mg Take 25 mg by mouth. [facility] CO2-Releasi ng 0.9-0.6 gram Supp 2019-07 18:26: 23 Yes Insert into rectum. [facility] ferrous sulfate 325 mg (65 mg iron) tablet 2019-07 18:26: 23 Yes 325mg Take 325 mg by mouth 3 (three) times daily with meals. [facility] FENTanyl PF (SUBLIMAZE (PF)) injection 25 mcg 2019-07 17:49: 37 Yes 25ug 25 mcg, Slow IV Push, Q5MIN PRN, 4 doses, Starting 06/14/20 at 1149, Until Discontinu ed, Routine, Pain (scale 4-6), PACU [facility] ondansetron (ZOFRAN (PF)) injection 4 mg 2019-07 17:49: 37 Yes 4mg 4 mg, Slow IV Push, PRN, 1 dose, Starting 06/14/20 at 1149, Until Discontinu ed, Routine, Nausea and Vomiting (N/V), PACU [facility] PHENYLephri ne 1000 mcg/10 mL in 0.9% NaCl syringe 2019-07 17:21: 00 06-14 17:44 :14 No ONCE INTRA PROCEDURE, Starting 06/14/20 at 1121, Until Tu06/14/20 at 1144, Routine, Intra-op [facility] propofoL IV infusion 2019-07 17:02: 00 06-14 17:44 :14 No Slow IV Push, ONCE INTRA PROCEDURE, Starting 06/14/20 at 1102, Until 06/14/20 at 1144, Routine, Intra-op [facility] lidocaine 1% (XYLOCAINE) 100 mg/10 mL (1 %) injection 2019-07 17:02: 00 06-14 17:44 :14 No ONCE INTRA PROCEDURE, Starting 06/14/20 at 1102, Until 12/8/20 at 1144, Routine, Intra-op [facility] midazolam (VERSED) injection 2019-07 17:00: 00 06-14 17:44 :14 No IV Push, ONCE INTRA PROCEDURE, Starting Sat06/14/20 at 1100, Until Tu06/14/20 at 1144, Routine, Intra-op [facility] lactated ringers IV infusion 2019-07 16:02: 00 06-14 17:44 :14 No Intravenou s, CONTINUOUS PRN, Starting Sat06/14/20 at 1002, Until 06/14/20 at 1144, Routine, Intra-op [facility] lactated ringers IV infusion 1,000 mL 2019-07 16:00: 00 06-14 16:03 :00 No 1000mL at 42 mL/hr, 1,000 mL, IV Infusion, ONCE, 1 dose, Sat06/14/20 at 1000, Routine, DSU Pre-op [facility] CO2-Releasi ng 0.9-0.6 gram Supp 2019-07 2 22:34: 06 Yes Insert into rectum. [facility] ferrous sulfate 325 mg (65 mg iron) tablet 2019-07 22:34: 06 Yes 325mg Take 325 mg by mouth 3 (three) times daily with meals. [facility] ergocalcife rol, vitamin D2, (VITAMIN D ORAL) 2019-07 22:34: 05 Yes Take by mouth. [facility] ketorolac tromethamin e (TORADOL ORAL) 2019-07 22:34: 05 Yes 25mg Take 25 mg by mouth. [facility] Cholecalcif dayana, Vitamin D3, 125 mcg (5,000 unit) capsule 2019-07 00:00: 00 Yes 5000U Take 1 capsule by mouth in the morning. [facility] Melatonin 5 mg Cap 2019-07 0 00:00: 00 Yes 1{tbl} Take 1 tablet by mouth as needed. [facility] atorvastati n 20 mg tablet 2020-0 6-17 00:00: 00 02-23 00:00 :00 No [id number] 20mg Take 1 tablet by mouth daily. [facility] atorvastati n 20 mg tablet 3-16 00:00: 00 12-22 00:00 :00 No [id number] 20mg Take 1 tablet by mouth daily. [facility] Immunizations Ordered Immunization Name Filled Immunization Name Date Status Comments Source Influenza Virus Vaccine Quad IM, Preserv and ABX Free 6 MO-64 YRS 2022-04-10 00:00:00 Completed [facility] Influenza Virus Vaccine Quad IM, Preserv and ABX Free 6 MO-64 YRS 2022-04-10 00:00:00 Completed [facility] Influenza Virus Vaccine Quad IM, Preserv and ABX Free 6 MO-64 YRS 2022-04-10 00:00:00 Completed [facility] Influenza Virus Vaccine Quad IM, Preserv and ABX Free 6 MO-64 YRS 2022-04-10 00:00:00 Completed [facility] Influenza Virus Vaccine Quad IM, Preserv and ABX Free 6 MO-64 YRS 2022-04-10 00:00:00 Completed [facility] Influenza Virus Vaccine Quad IM, Preserv and ABX Free 6 MO-64 YRS (FLUCELVAX) 2022-04-10 00:00:00 Completed [facility] Influenza Virus Vaccine Quad IM, Preserv and ABX Free 6 MO-64 YRS 2022-04-10 00:00:00 Completed [facility] Influenza Virus Vaccine Quad IM, Preserv and ABX Free 6 MO-64 YRS 2022-04-10 00:00:00 Completed [facility] SARS-COV-2 COVID-19 MODERNA VACCINE 2020-10-31 00:00:00 Completed [facility] SARS-COV-2 COVID-19 MODERNA VACCINE 2020-10-31 00:00:00 Completed [facility] SARS-COV-2 COVID-19 MODERNA VACCINE 2020-10-31 00:00:00 Completed [facility] SARS-COV-2 COVID-19 MODERNA 12+ YRS VACCINE 2020-10-31 00:00:00 Completed [facility] SARS-COV-2 COVID-19 MODERNA 12+ YRS VACCINE 2020-10-31 00:00:00 Completed [facility] SARS-COV-2 COVID-19 MODERNA 12+ YRS VACCINE 2020-10-31 00:00:00 Completed [facility] SARS-COV-2 COVID-19 MODERNA 12+ YRS VACCINE 2020-10-31 00:00:00 Completed [facility] SARS-COV-2 COVID-19 MODERNA 12+ YRS VACCINE 2020-10-31 00:00:00 Completed [facility] SARS-COV-2 COVID-19 MODERNA 12+ YRS VACCINE 2020-10-31 00:00:00 Completed [facility] SARS-COV-2 COVID-19 MODERNA 12+ YRS VACCINE 2020-10-31 00:00:00 Completed [facility] SARS-COV-2 COVID-19 MODERNA 12+ YRS VACCINE 2020-10-31 00:00:00 Completed [facility] SARS-COV-2 COVID-19 MODERNA 12+ YRS VACCINE 2020-10-31 00:00:00 Completed [facility] SARS-COV-2 COVID-19 MODERNA VACCINE 2020-10-03 00:00:00 Completed [facility] SARS-COV-2 COVID-19 MODERNA VACCINE 2020-10-03 00:00:00 Completed [facility] SARS-COV-2 COVID-19 MODERNA VACCINE 2020-10-03 00:00:00 Completed [facility] SARS-COV-2 COVID-19 MODERNA 12+ YRS VACCINE 2020-10-03 00:00:00 Completed [facility] SARS-COV-2 COVID-19 MODERNA 12+ YRS VACCINE 2020-10-03 00:00:00 Completed [facility] SARS-COV-2 COVID-19 MODERNA 12+ YRS VACCINE 2020-10-03 00:00:00 Completed [facility] SARS-COV-2 COVID-19 MODERNA 12+ YRS VACCINE 2020-10-03 00:00:00 Completed [facility] SARS-COV-2 COVID-19 MODERNA 12+ YRS VACCINE 2020-10-03 00:00:00 Completed [facility] SARS-COV-2 COVID-19 MODERNA 12+ YRS VACCINE 2020-10-03 00:00:00 Completed [facility] SARS-COV-2 COVID-19 MODERNA 12+ YRS VACCINE 2020-10-03 00:00:00 Completed [facility] SARS-COV-2 COVID-19 MODERNA 12+ YRS VACCINE 2020-10-03 00:00:00 Completed [facility] SARS-COV-2 COVID-19 MODERNA 12+ YRS VACCINE 2020-10-03 00:00:00 Completed [facility] Influenza Virus Vaccine 2019-05-27 00:00:00 Completed [facility] Influenza Virus Vaccine 2019-05-27 00:00:00 Completed [facility] Influenza Virus Vaccine 2019-05-27 00:00:00 Completed [facility] Influenza Virus Vaccine 2019-05-27 00:00:00 Completed [facility] Influenza Virus Vaccine 2019-05-27 00:00:00 Completed [facility] Influenza Virus Vaccine 2019-05-27 00:00:00 Completed [facility] Influenza Virus Vaccine 2019-05-27 00:00:00 Completed [facility] Influenza Virus Vaccine 2019-05-27 00:00:00 Completed [facility] Influenza Virus Vaccine 2019-05-27 00:00:00 Completed [facility] Influenza Virus Vaccine 2019-05-27 00:00:00 Completed [facility] Influenza Virus Vaccine 2019-05-27 00:00:00 Completed [facility] Influenza Virus Vaccine 2019-05-27 00:00:00 Completed [facility] Influenza Virus Vaccine 2019-05-27 00:00:00 Completed [facility] Influenza Virus Vaccine 2019-05-27 00:00:00 Completed [facility] Influenza Virus Vaccine 2019-05-27 00:00:00 Completed [facility] Influenza Virus Vaccine 2019-05-27 00:00:00 Completed [facility] Influenza Virus Vaccine 2019-05-27 00:00:00 Completed [facility] Influenza Virus Vaccine 2019-05-27 00:00:00 Completed [facility] Influenza Virus Vaccine 2019-05-27 00:00:00 Completed [facility] Influenza Virus Vaccine 2019-05-27 00:00:00 Completed [facility] Influenza Virus Vaccine 2019-05-27 00:00:00 Completed [facility] Influenza Virus Vaccine 2019-05-27 00:00:00 Completed [facility] Influenza Virus Vaccine 2019-05-27 00:00:00 Completed [facility] Influenza Virus Vaccine 2019-05-27 00:00:00 Completed [facility] Influenza Virus Vaccine 2019-05-27 00:00:00 Completed [facility] Influenza Virus Vaccine 2019-05-27 00:00:00 Completed [facility] Influenza Virus Vaccine Unknown Completed [facility] SARS-COV-2 COVID-19 MODERNA 12+ YRS VACCINE Unknown Completed [facility] Influenza Virus Vaccine Quad IM, Preserv and ABX Free 6 MO-64 YRS (FLUCELVAX) Unknown Completed [facility] Influenza Virus Vaccine Unknown Completed [facility] SARS-COV-2 COVID-19 MODERNA 12+ YRS VACCINE Unknown Completed [facility] Influenza Virus Vaccine Quad IM, Preserv and ABX Free 6 MO-64 YRS (FLUCELVAX) Unknown Completed [facility] Influenza Virus Vaccine Unknown Completed [facility] SARS-COV-2 COVID-19 MODERNA 12+ YRS VACCINE Unknown Completed [facility] Influenza Virus Vaccine Quad IM, Preserv and ABX Free 6 MO-64 YRS (FLUCELVAX) Unknown Completed [facility] Influenza Virus Vaccine Unknown Completed [facility] SARS-COV-2 COVID-19 MODERNA 12+ YRS VACCINE Unknown Completed [facility] Influenza Virus Vaccine Quad IM, Preserv and ABX Free 6 MO-64 YRS (FLUCELVAX) Unknown Completed [facility] Influenza Virus Vaccine Unknown Completed [facility] SARS-COV-2 COVID-19 MODERNA 12+ YRS VACCINE Unknown Completed [facility] Influenza Virus Vaccine Quad IM, Preserv and ABX Free 6 MO-64 YRS (FLUCELVAX) Unknown Completed [facility] Influenza Virus Vaccine Unknown Completed [facility] SARS-COV-2 COVID-19 MODERNA 12+ YRS VACCINE Unknown Completed [facility] Influenza Virus Vaccine Quad IM, Preserv and ABX Free 6 MO-64 YRS (FLUCELVAX) Unknown Completed [facility] Influenza Virus Vaccine Unknown Completed [facility] SARS-COV-2 COVID-19 MODERNA 12+ YRS VACCINE Unknown Completed [facility] Influenza Virus Vaccine Quad IM, Preserv and ABX Free 6 MO-64 YRS (FLUCELVAX) Unknown Completed [facility] Vital Signs Vital Name Observation Time Observation Value Comments S magui Systolic blood pressure 2023-10-10 19:28:00 139 mm[Hg] [facility] Diastolic blood pressure 2023-10-10 19:28:00 79 mm[Hg] [facility] Heart rate 2023-10-10 19:28:00 98 /min Unive [facility] Body temperature 2023-10-10 19:28:00 36.78 Zeynep [facility] Respiratory rate 2023-10-10 19:28:00 20 /min [facility] Body height 2023-10-10 19:28:00 160 cm [facility] Body weight 2023-10-10 19:28:00 80.74 kg [facility] BMI 2023-10-10 19:28:00 31.53 kg/m2 [facility] Oxygen saturation in Arterial blood by Pulse oximetry 2023-10-10 19:28:00 100 /min [facility] Systolic blood pressure 2023-05-01 19:00:00 112 mm[Hg] [facility] Diastolic blood pressure 2023-05-01 19:00:00 71 mm[Hg] [facility] Heart rate 2023-05-01 19:00:00 85 /min Unive [facility] Body height 2023-05-01 19:00:00 160 cm [facility] Body weight 2023-05-01 19:00:00 85.503 kg [facility] BMI 2023-05-01 19:00:00 33.39 kg/m2 [facility] Oxygen saturation in Arterial blood by Pulse oximetry 2023-05-01 19:00:00 99 /min [facility] Systolic blood pressure 2023-04-10 17:52:00 138 mm[Hg] [facility] Diastolic blood pressure 2023-04-10 17:52:00 81 mm[Hg] [facility] Heart rate 2023-04-10 17:52:00 99 /min Unive [facility] Body temperature 2023-04-10 17:52:00 36.44 Zeynep [facility] Respiratory rate 2023-04-10 17:52:00 17 /min [facility] Body height 2023-04-10 17:52:00 160 cm [facility] Body weight 2023-04-10 17:52:00 83.689 kg [facility] BMI 2023-04-10 17:52:00 32.68 kg/m2 [facility] Oxygen saturation in Arterial blood by Pulse oximetry 2023-04-10 17:52:00 100 /min [facility] Systolic blood pressure 2023-04-08 20:10:00 136 mm[Hg] [facility] Diastolic blood pressure 2023-04-08 20:10:00 83 mm[Hg] [facility] Heart rate 2023-04-08 20:10:00 84 /min Unive [facility] Body temperature 2023-04-08 20:10:00 36.39 Zeynep [facility] Respiratory rate 2023-04-08 20:10:00 18 /min [facility] Oxygen saturation in Arterial blood by Pulse oximetry 2023-04-08 20:10:00 99 /min [facility] Body height 2023-04-08 02:00:00 160 cm [facility] Body weight 2023-04-08 02:00:00 82.1 kg [facility] BMI 2023-04-08 02:00:00 32.06 kg/m2 [facility] Respiratory rate 2022-08-09 16:20:00 19 /min [facility] Heart rate 2022-08-09 16:19:00 84 /min [facility] Oxygen saturation in Arterial blood by Pulse oximetry 2022-08-09 16:19:00 100 /min [facility] Systolic blood pressure 2022-08-09 16:18:00 119 mm[Hg] [facility] Diastolic blood pressure 2022-08-09 16:18:00 79 mm[Hg] [facility] Body temperature 2022-08-09 15:36:00 36.17 Zeynep [facility] Body weight 2022-08-03 20:00:00 87.544 kg [facility] BMI 2022-08-03 20:00:00 34.19 kg/m2 [facility] Systolic blood pressure 2022-08-09 16:09:00 108 mm[Hg] [facility] Diastolic blood pressure 2022-08-09 16:09:00 77 mm[Hg] [facility] Heart rate 2022-08-09 16:09:00 78 /min Un[facility] Respiratory rate 2022-08-09 16:09:00 20 /min [facility] Oxygen saturation in Arterial blood by Pulse oximetry 2022-08-09 16:09:00 100 /min [facility] Body temperature 2022-08-09 15:36:00 36.17 [facility] Body weight 2022-08-03 20:00:00 87.544 kg [facility] BMI 2022-08-03 20:00:00 34.19 kg/m2 [facility] Respiratory rate 2022-08-09 15:30:00 21 /min [facility] Systolic blood pressure 2022-04-10 19:17:00 130 mm[Hg] [facility] Diastolic blood pressure 2022-04-10 19:17:00 85 mm[Hg] [facility] Heart rate 2022-04-10 19:17:00 73 /min [facility] Body temperature 2022-04-10 19:17:00 36.28 Zeynep [facility] Respiratory rate 2022-04-10 19:17:00 18 /min [facility] Body weight 2022-04-10 19:17:00 85.412 kg [facility] BMI 2022-04-10 19:17:00 33.36 kg/m2 [facility] Oxygen saturation in Arterial blood by Pulse oximetry 2022-04-10 19:17:00 98 /min [facility] Systolic blood pressure 2021-02-23 15:42:00 116 mm[Hg] [facility] Diastolic blood pressure 2021-02-23 15:42:00 76 mm[Hg] [facility] Heart rate 2021-02-23 15:42:00 87 /min Un[facility] Respiratory rate 2021-02-23 15:42:00 21 /min [facility] Body height 2021-02-23 15:42:00 160 cm [facility] Body weight 2021-02-23 15:42:00 84.324 kg [facility] BMI 2021-02-23 15:42:00 32.93 kg/m2 [facility] Oxygen saturation in Arterial blood by Pulse oximetry 2021-02-23 15:42:00 99 /min [facility] Systolic blood pressure 2020-06-14 18:15:00 106 mm[Hg] [facility] Diastolic blood pressure 2020-06-14 18:15:00 64 mm[Hg] [facility] Heart rate 2020-06-14 18:15:00 58 /min Un[facility] Respiratory rate 2020-06-14 18:15:00 15 /min [facility] Oxygen saturation in Arterial blood by Pulse oximetry 2020-06-14 18:15:00 100 /min [facility] Body temperature 2020-06-14 17:42:00 36.33 Zeynep [facility] Body height 2020-06-10 22:30:00 160 cm [facility] Body weight 2020-06-10 22:30:00 79.379 kg [facility] BMI 2020-06-10 22:30:00 31.00 kg/m2 [facility] Respiratory rate 2020-06-14 17:39:00 17 /min [facility] BMI 2019-12-23 14:23:00 31.78 kg/m2 [facility] Oxygen saturation in Arterial blood by Pulse oximetry 2019-12-23 14:23:00 100 /min [facility] Systolic blood pressure 2019-12-23 14:23:00 113 mm[Hg] [facility] Diastolic blood pressure 2019-12-23 14:23:00 72 mm[Hg] [facility] Heart rate 2019-12-23 14:23:00 61 /min [facility] 2019-12-23 14:23:00 19 /min [facility] Body height 2019-12-23 14:23:00 160 cm [facility] Body weight 2019-12-23 14:23:00 81.375 kg [facility] BMI 2019-12-23 14:23:00 31.78 kg/m2 [facility] Oxygen saturation in Arterial blood by Pulse oximetry 2019-12-23 14:23:00 100 /min [facility] Systolic blood pressure 2019-12-23 14:23:00 113 mm[Hg] [facility] Diastolic blood pressure 2019-12-23 14:23:00 72 mm[Hg] [facility] Heart rate 2019-12-23 14:23:00 61 /min Un[facility] Respiratory rate 2019-12-23 14:23:00 19 /min [facility] Body height 2019-12-23 14:23:00 160 cm [facility] Body weight 2019-12-23 14:23:00 81.375 kg [facility] Systolic blood pressure 2019-11-12 18:00:00 98 mm[Hg] [facility] Diastolic blood pressure 2019-11-12 18:00:00 59 mm[Hg] [facility] Heart rate 2019-11-12 18:00:00 74 /min Unive [facility] Body height 2019-11-12 18:00:00 160 cm [facility] Body weight 2019-11-12 18:00:00 83.915 kg [facility] BMI 2019-11-12 18:00:00 32.77 kg/m2 [facility] Systolic blood pressure 2019-09-21 19:23:00 123 mm[Hg] [facility] Diastolic blood pressure 2019-09-21 19:23:00 76 mm[Hg] [facility] Heart rate 2019-09-21 19:23:00 70 /min [facility] Respiratory rate 2019-09-21 19:23:00 19 /min [facility] Body height 2019-09-21 19:23:00 160 cm [facility] Body weight 2019-09-21 19:23:00 82.237 kg [facility] BMI 2019-09-21 19:23:00 32.12 kg/m2 [facility] Oxygen saturation in Arterial blood by Pulse oximetry 2019-09-21 19:23:00 100 /min Mcdonald o f [facility] Procedures Procedure Date / Time Performed Performing Clinician Source EXTERNAL PROVIDER RECORDS 2023-06-26 06:01:00 Do ctor Unassigned, [place] [facility] COMPLETE ECHOCARDIOGRAM DOBUTAMINE STRESS TEST W CONTRAST 2023-05-01 20:17:20 Chaz Austin [facility] CBC WITH DIFF 2023-04-08 21:33:00 Panda Gustafson [facility] VITAMIN B12, LEVEL 2023-04-08 09:57:00 Panda Gustafson [facility] FOLATE 2023-04-08 09:57:00 Panda [facility]son [facility] BASIC METABOLIC PANEL (NA, K, CL, CO2, GLUCOSE, BUN, CREATININE, CA) 2023-04-08 09:57:00 [place] [facility] CBC WITH DIFF 2023-04-08 09:57:00 Zohreh Cedillo [facility] AC PANEL 21 + LACTIC ACID 2023-04-08 09:53:00 [place], Cl shelley [facility] URINALYSIS 2023-04-08 06:26:00 [facility], URINE RANDOM 2023-04-08 06:26:00 [place], Young awad [facility] SODIUM, URINE RANDOM 2023-04-08 06:26:00 [place] [facility] CHLORIDE, URINE RANDOM 2023-04-08 06:26:00 [facility] RBC 2023-04-08 06:17:00 [facility] PREPARE PACKED RBC 2023-04-08 06:00:24 [place], Oma [facility] XR CHEST 2 VW 2023-04-08 05:24:49 [place] GROUPING 2023-04-08 04:54:00 [place], Zohreh Simeon e [facility] HB ECG ROUTINE & RHYTHM STRIP 2023-04-08 04:00:18 [place]OUTINE & RHYTHM STRIP 2023-04-08 03:58:16 [place] [facility] PHOSPHORUS 2023-04-08 03:28:00 [place], Zohreh Danielsonse U [facility] MAGNESIUM 2023-04-08 03:28:00 [place] SERUM 2023-04-08 03:28:00 [place], Zohreh [facility] TROPONIN I 2023-04-08 03:28:00 [place], [facility] T4 2023-04-08 03:28:00 [place], [facility] THYROID STIMULATING HORMONE 2023-04-08 03:28:00 [place], Zohreh [facility] HEPATIC FUNCTION PANEL (30698) (ALB,T.PRO,BILI T,BU/BC,ALT,AST,ALK PHOS) 2023-04-08 03:28:00 [place], Zohreh [facility] BASIC METABOLIC PANEL (NA, K, CL, CO2, GLUCOSE, BUN, CREATININE, CA) 2023-04-08 03:28:00 [place], Zohreh [facility] IRON PANEL 2023-04-08 03:28:00 [place], Zohreh [facility] CBC WITH DIFF 2023-04-08 03:28:00 [place], Zohreh [facility] GLYCOSYLATED HEMOGLOBIN (A1C) 2023-04-08 03:28:00 [place], Zohreh [facility] PROTHROMBIN TIME / INR 2023-04-08 03:28:00 [place], Zohreh [facility] ACTIVATED PARTIAL THRMPLAS HARSH 2023-04-08 03:28:00 Zohreh Cedillo [facility] N-TERMINAL PRO-BNP 2023-04-08 03:28:00 Oma Cedillo [facility] EXTERNAL PROVIDER - ADC REFERRAL 2023-03-01 05:01:00 Doctor Unassigned, [place] [facility] INTUBATION 2022-08-09 13:56:00 Lynn Guillory [facility] ARTERIOVENOUS FISTULA CREATION 2022-08-09 13:20:00 Bibiana [facility] HB ABO GROUPING 2022-08-09 13:07:00 Bibiana [facility] HB ABO GROUPING 2022-08-09 13:07:00 Bibiana [facility] DAY SURGERY - ADC 2022-08-09 06:01:00 Doctor Hailey ssigned, [place] [facility] BASIC METABOLIC PANEL (NA, K, CL, CO2, GLUCOSE, BUN, CREATININE, CA) 2022-07-24 19:24:00 Bibiana [facility] CBC WITH DIFF 2022-07-24 19:24:00 Bibiana [facility] BASIC METABOLIC PANEL (NA, K, CL, CO2, GLUCOSE, BUN, CREATININE, CA) 2022-07-24 19:24:00 Bibiana [facility] CBC WITH DIFF 2022-07-24 19:24:00 Bibiana, [facility] REFERRAL- REQUEST/RESPONSE 2022-05-15 06:01:00 Doctor Unassigned, [place] [facility] FLU VACC (), 6 MO-64 YRS, .5ML, IM, QUAD (FLUCELVAX) 2022-04-10 19:29:07 [facility]REATMENT 2022-04-10 18:58:52 Doctor Unassigned, [place] [facility] SHANELL EXTREMITY STRESS - BY VASCULAR LAB 2021-03-16 19:46:51 Chaz Austin [facility] CONSENT/REFUSAL FOR DIAGNOSIS AND TREATMENT 2021-02-23 15:24:36 Doctor Unassigned, [place] [facility] REFERRAL- REQUEST/RESPONSE 2021-01-19 05:01:00 Doctor Unassigned, [place] [facility] EXTERNAL PROVIDER - ADC REFERRAL 2021-01-10 05:01:00 Doctor Unassigned, [place] [facility] REFERRAL- REQUEST/RESPONSE 2020-11-19 05:01:00 Doctor Unassigned, [place] [facility] COVID-19 (ID NOW RAPID TESTING) 2020-06-13 15:13:00 Maximiliano Bucio [facility] BASIC METABOLIC PANEL (NA, K, CL, CO2, GLUCOSE, BUN, CREATININE, CA) 2020-06-13 15:13:00 Cristel Truong [facility] CBC WITH DIFF 2020-06-13 15:13:00 Cristel Truong [facility] DSU PRE-OP 2020-06-10 06:01:00 Doctor Unass igned, [place] [facility] EXTERNAL PROVIDER - ADC REFERRAL 2019-09-21 05:01:00 Doctor Unassigned, [place] [facility] Encounters Start Date/Time End Date/Time Encounter Type Admission Type Attending [facility] Care Department Encounter ID Source 2021-08-02 12:00:[address] [facility] [id number] [facility] 2021-08-02 11:30:[address] [facility] [id number] [facility] 2021-05-06 09:14:41 Outpatient CRSITEL LAUREANO [facility] VI [id number] [facility] 2024-11-05 14:30:00 2024-11-05 14:30:00 Outpatient GAMALIEL TRIPLETT [facility] [id number] [facility] 2024-09-10 13:00:00 2024-09-10 13:00:00 Outpatient GAMALIEL TRIPLETT [facility] [id number] [facility] 2023-10-10 14:45:00 2023-10-10 15:00:16 Outpatient GAMALIEL TRIPLETT [facility] [id number] [facility] 2023-10-10 14:45:00 2023-10-10 15:00:16 Office Visit Gamaliel Mccarty [facility] [id number] [facility] 2023-06-26 00:00:00 2023-06-26 00:00:00 Orders Only Doctor Unassigned, [place] [facility] [id number] [facility] 2023-05-03 00:00:00 2023-05-03 00:00:00 [facility] [id number] [facility] 2023-05-01 12:55:56 2023-05-01 23:59:00 [facility] [id number] 2023-05-01 12:55:56 2023-05-01 23:59:00 [facility] [id number] [facility] 2023-04-30 00:00:00 2023-04-30 00:00:00 Telephone Panda Gustafson [facility] [id number] [facility] 2023-04-23 14:30:00 2023-04-23 14:30:00 [facility] [id number] [facility] 2023-04-10 13:00:00 2023-04-10 13:14:21 Outpatient R CHAZ AUSTIN [facility] [id number] [facility] 2023-04-10 13:00:00 2023-04-10 13:14:21 [facility] [id number] [facility] 2023-04-07 21:31:00 2023-04-08 17:27:00 Outpatient U HUAN DIAZ [facility] [id number] [facility] 2023-04-07 21:31:00 2023-04-08 17:27:00 Hospital Encounter Huan Diaz Nitza [facility] [id number] 4.2.7.2.686 [id number] [id number] [facility] 2023-03-01 00:00:00 2023-03-01 00:00:00 Orders Only Doctor Unassigned, [place] [facility] 1.0.114 350.1.13.10 4.2.7.2.686 [id number] [id number] [facility] 2022-10-04 13:15:00 2022-10-04 13:36:27 Outpatient R GAMALIEL MCCARTY [facility] [id number] [facility] 2022-08-23 15:45:00 2022-08-23 16:07:45 Outpatient R GAMALIEL MCCARTY [facility] [id number] [facility] 2022-08-09 06:39:00 2022-08-09 10:30:00 Hospital Encounter Gamaliel Mccarty [facility] 1.20.114 350.1.13.10 4.2.7.2.686 [id number] [facility] 2022-08-09 06:39:00 2022-08-09 10:30:00 Outpatient R GAMALIEL MCCARTY [facility] [id number] [facility] 2022-08-09 07:10:00 2022-08-09 10:09:00 Surgery Gamaliel Mccarty [facility] 1.2.840.114 350.1.13.10 4.2.7.2.686 [id number] [facility] 2022-08-09 07:40:00 2022-08-09 09:31:00 Anesthesia Event Rush Clarke David K [facility] 1.2.840.114 350.1.13.10 4.2.7.2.686 [id number] [facility] 2022-08-09 00:00:00 2022-08-09 00:00:00 Orders Only Doctor Unassigned, [place] [facility] 1.2.840.114 350.1.13.10 4.2.7.2.686 [id number] [id number] [facility] 2022-07-24 13:30:00 2022-07-24 13:33:38 Manager Basketball Visit 2, Adc Lab Gamaliel Mccarty [facility] PROFESS[facility] 1.2840.114 350.1.13.10 4.2.7.2.686 [id number] [facility] 2022-07-24 13:30:00 2022-07-24 13:30:00 Outpatient R GAMALIEL MCCARTY [facility] [id number] [facility] 2022-07-24 13:00:00 2022-07-24 13:00:00 Outpatient R [facility] [id number] [facility] 2022-07-12 14:00:00 2022-07-12 14:24:30 Outpatient R GAMALIEL MCCARTY [facility] [id number] [facility] 2022-06-07 16:30:00 2022-06-07 16:30:00 Outpatient R GAMALIEL MCCARTY [facility] [id number] [facility] 2022-05-15 00:00:00 2022-05-15 00:00:00 Orders Only Doctor Unassigned, [place] [facility] 1.2840.114 350.1.13.10 4.2.7.2.686 [id number] [id number] [facility] 2022-04-10 14:20:00 2022-04-10 14:41:01 [facility] 1.84.114 350.1.13.10 4.2.7.2.686 [id number] [facility] 2022-04-10 14:20:00 2022-04-10 14:41:01 [facility] [id number] [facility] 2022-04-10 00:00:00 2022-04-10 00:00:00 Orders Only Doctor Unassigned, [place] [facility] 1.84.114 350.1.13.10 4.2.7.2.686 [id number] [id number] [facility] 2022-02-27 13:40:00 2022-02-27 13:40:[address] [facility] [id number] [facility] 2022-02-27 13:40:00 2022-02-27 13:40:[address] [facility] [id number] [facility] 2021-03-16 14:00:00 2021-03-16 23:59:00 [facility].84.114 350.1.13.10 4.2.7.2.686 [id number] [facility] 2021-03-16 00:00:00 2021-03-16 00:00:00 [facility] [id number] [facility] 2021-02-23 11:13:00 2021-02-23 11:28:00 Manager Basketball Visit 2, Adc Lab Norman [facility] 1.2.840.114 350.1.13.10 4.2.7.2.686 [id number] [facility] 2021-02-23 10:24:49 2021-02-23 11:04:38 Office Visit Norman [facility] 1.2.840.114 350.1.13.10 4.2.7.2.686 [id number] [facility] 2021-02-23 10:40:00 2021-02-23 10:40:00 [facility] [id number] [facility] 2021-02-23 00:00:00 2021-02-23 00:00:00 Orders Only Doctor Unassigned, [place] [facility] 1.2840.114 350.1.13.10 4.2.7.2.686 [id number] [id number] [facility] 2021-01-19 00:00:00 2021-01-19 00:00:00 Orders Only Doctor Unassigned, [place] [facility] 1.2840.114 350.1.13.10 4.2.7.2.686 [id number] [id number] [facility] 2021-01-10 00:00:00 2021-01-10 00:00:00 Orders Only Doctor Unassigned, [place] [facility] 1.2840.114 350.1.13.10 4.2.7.2.686 [id number] [id number] [facility] 2020-12-26 09:00:00 2020-12-26 09:00:00 [facility] [id number] [facility] 2020-11-19 00:00:00 2020-11-19 00:00:00 Orders Only Doctor Unassigned, [place] [facility] 1.2840.114 350.1.13.10 4.2.7.2.686 [id number] [id number] [facility] 2020-06-14 09:49:00 2020-06-14 12:20:00 Outpatient CRISTEL LAUREANO [facility] [id number] [facility] 2020-06-14 09:49:00 2020-06-14 12:20:00 Hospital Cristel Clifford [facility] [place] 1.20.114 350.1.13.10 4.2.7.2.686 [id number] [facility] 2020-06-14 11:00:00 2020-06-14 11:46:00 Anesthesia Rush Clarke Melanie [facility] [place] 1.20.114 350.1.13.10 4.2.7.2.686 [id number] [facility] 2020-06-13 13:30:00 2020-06-13 13:30:00 Outpatient MAXIMILIANO JONES [facility] [id number] [facility] 2020-06-13 08:54:04 2020-06-13 09:09:04 Laboratory Only Only, Adc Test [facility] 1.20.114 350.1.13.10 4.2.7.2.686 [id number] [facility] 2019-12-30 00:00:00 2019-12-30 00:00:00 [facility] 1.2840.114 350.1.13.10 4.2.7.2.686 [id number] [id number] 2019-12-30 00:00:00 2019-12-30 00:00:00 Telephone Chaz Austin [facility] [place] [facility] 1.2.840.114 350.1.13.10 4.2.7.2.686 [id number] [facility] 2019-12-23 09:05:47 2019-12-23 23:17:42 Office Visit Chaz Austin [facility] 1.2.840.114 350.1.13.10 4.2.7.2.686 [id number] [id number] 2019-12-23 09:05:47 2019-12-23 23:17:42 Office Visit Chaz Austin [facility] 1.2.840.114 350.1.13.10 4.2.7.2.686 [id number] [facility] 2019-12-23 09:45:07 2019-12-23 10:00:07 Manager Basketball Visit 2, Adc Lab Eliezer Austinh[facility]ctor [facility] 1.2.840.114 350.1.13.10 4.2.7.2.686 [id number] [facility] 2019-12-23 09:20:00 2019-12-23 09:20:00 Outpatient R CHAZ AUSTIN [facility] [id number] [facility] 2019-11-16 00:00:00 2019-11-16 00:00:00 [facility] 1.2.840.114 350.1.13.10 4.2.7.2.686 [id number] [facility] 2019-11-12 12:50:18 2019-11-12 13:50:18 Laboratory Only Pc, Adc Echo Room 1 - [facility] 1.2.840.114 350.1.13.10 4.2.7.2.686 [id number] [facility] 2019-11-12 13:00:00 2019-11-12 13:00:00 Outpatient R BLAINE VALLE [facility] [id number] [facility] 2019-09-21 13:37:52 2019-09-21 15:11:36 [facility] 1..840.114 350.1.13.10 4.2.7.2.686 [id number] [facility] 2019-09-21 14:20:00 2019-09-21 14:20:00 [facility] [id number] [facility] 2019-09-21 00:00:00 2019-09-21 00:00:00 Orders Only Doctor Unassigned, [place] [facility] 1.2.840.114 350.1.13.10 4.2.7.2.686 [id number] [facility] Results Test Description Test Time Test Comments Results Result Co mments Source [facility] PAN[facility] 21 + LACTIC [id number] 10:02:29* Test Item Value Reference Range Interpretation Comme nts PH (test code = 6112255719) 7.33 7.32-7.42 PCO2 SIMRAN (test code = 4474102531) 24 See_Comment L [Automated messa ge] The system which generated this result transmitted reference range: 41 - 51 mmHg. The reference range was not used to interpret this result as normal/abnormal. PO2 SIMRAN (test code = 7188198182) 61 See_Comment HH [Automated messa ge] The system which generated this result transmitted reference range: 25 - 40 mmHg. The reference range was not used to interpret this result as normal/abnormal. HCO3 SIMRAN (test code = 1493761261) 12 See_Comment L [Automated messa ge] The system which generated this result transmitted reference range: 24 - 28 mEq/L. The reference range was not used to interpret this result as normal/abnormal. AC VBE(BEAKER) (test code = 1161204463) -12.4 mEq/L THB SIMRAN (test code = 1276924308) 7.9 g/dL 13.5-18.0 LL %O2HB SIMRAN (test code = 2284287606) 89.9 % 52.0-63.0 H %COHB SIMRAN (test code = 0842956629) 0.4 % 0.0-1.5 %METHB SIMRAN (test code = 4018682941) 0.3 % 0.4-1.5 L VOL%O2 SIMRAN (test code = 6940469820) 10.1 % 6.0-12.0 NA (test code = 2880411786) 140 mmol/L 135-145 K+ (test code = 5996870826) 3.4 mmol/L 3.5-5.0 L AC CA IONZ (test code = 3359959802) 4.70 mg/dL 4.50-5.30 GLUCOSE (test code = 3477505513) 83 mg/dL 70-110 LACTIC ACID (test code = 5543726821) 0.84 mmol/L 0.50-2.20 QUES Lab Interpretation (test code = 56401-4) Abnormal [facility]wood[facility] Packed RBC (in units), 1 Units 2023-04-08 06:00:24* Test Item Value Reference Range Interpretation Comme nts Cross Match Result (test code = 4409) Compatible ISBT Blood Type Code (test code = 980061) 6200 Unit Blood Type (test code = 4410) A Pos Unit Number (test code = 4411) [id number] Blood Expiration Date & Time (test code = 536123) [id number] Status Information (test code = 4412) Issued Product Identification (test code = 4413) Red Blood Cells Product Code (test code = 4414) [id number] Performed at [facility] B Laboratory Services - [facility] Blood [address] [place] [address]Vujh Free: [phone] No. [id number] [facility] and Screen - ONCE [id number] 05:00:00* Test Item Value Reference Range Interpretation Comme nts ABO & RH (test code = 20) A POSITIVE IAT (test code = 1185) Negative [facility] and Screen - This is a pre-surgical type and screen. ONCE [id number] 15:43:26* Test Item Value Reference Range Interpretation Comme nts ABO & RH (test code = 20) A Positive Performed at [facility] Laboratory [facility] Blood [address] Free: [phone] No. [id number] IAT (test code = 1185) Negative Performed at [facility] Blood [place] [address]Toll Free: [phone] No. [id number] [facility] and Screen - This is a pre-surgical type and screen. ONCE [id number] 15:43:26* Test Item Value Reference Range Interpretation Comme nts ABO & RH (test code = 20) A Positive Performed at [facility] Laboratory [facility] Blood [place] [address]Toll Free: [phone] No. [id number] IAT (test code = 1185) Negative Performed at [facility] Blood [address] Free: [phone] No. [id number] [facility]wood[facility] METABOLIC PANEL (NA, K, CL, CO2, GLUCOSE, BUN, CREATININE, CA)2020-06-13 16:44:00* Test Item Value Reference Range Interpretation Comme nts NA (test code = 7228534862) 141 mmol/L 135-145 K (test code = 3453074575) 4.9 mmol/L 3.5-5 CL (test code = 0301195829) 109 mmol/L 98-108 H CO2 TOTAL (test code = 5890801168) 22 mmol/L 23-31 L AGAP (test code = 1234420406) 2-16 BUN (test code = 3714041151) 56 mg/dL 7-23 H GLUCOSE (test code = 6103829933) 96 mg/dL 70-110 CREATININE (test code = 9398856978) 4.29 mg/dL 0.6-1.25 H CALCIUM (test code = 3141190315) 9.6 mg/dL 8.6-10.6 eGFR Calculation (Non-) (test code = 4350284562) mL/min/1.73m2 eGFR Calculation () (test code = 9818957458) mL/min/1.73m2 ZUHAIR (test code = ZUHAIR) Association of Glomerular Filtration Rate (GFR) and Staging of Kidney Disease* + --+ --+ ------+| GFR (mL/min/1.73 m2) ?| With Kidney Damage ?| ?Without Kidney Damage+ --------+ --------+ +| ?>90 ?| ?Stage one ?| ? Normal ?+ ---+ ---+ -------+| ?60-89 ?| ?Stage two ?| ? Decreased GFR ? + --+ --+ ------+| ?30-59 ?| ?Stage three ?| ? Stage three ? + --+ --+ ------+| ?15-29 ?| ?Stage four ? | ? Stage four ?+ ---+ ---+ -------+| ?<15 (or dialysis) ? ?| ?Stage five ? | ? Stage five ?+ ---+ ---+ -------+ *Each stage assumes the associated GFR level has been in effect for at least three months. ?Stages 1 to 5, with or without kidney disease, indicate chronic kidney disease. Notes: Determination of stages one and two (with eGFR >59mL/min/1.73 m2) requires estimation of kidney damage for at least three months as defined by structural or functional abnormalities of the kidney, manifested by either:Pathological abnormalities or Markers of kidney damage (including abnormalities in the composition of the blood or urine or abnormalities in imaging tests). Lab Interpretation (test code = 47206-3) Abnormal [facility]wood[facility]OVID-[facility] (ID NOW RAPID TESTING)2020-06-13 15:54:00* Test Item Value Reference Range Interpretation Comme nts SARS-CoV-2 Rapid ID NOW (test code = 43365-6) Not Detected Not Detected ZUHAIR (test code = ZUHAIR) ID NOW COVID-19 As say is an isothermal nucleic acid amplification test intended for the qualitative detection of nucleic acid from SARS-CoV-2 viral RNA in nasopharyngeal (CLOUD ARCHITECT) specimens. It is used under Emergency Use Authorization (EUA) by FDA. The limit of detection (LOD) of the assay is 125 Genome Equivalents/mL. A positive result is indicative of the presence of SARS-CoV-2 RNA. ?Clinical correlation with patient history and other diagnostic information is necessary to determine patient infection status. A negative (Not Detected) result does not preclude SARS-CoV-2 infection. In patients with clinical symptoms and other tests that are consistent with SARS-CoV-2 infection, negative results should be treated as presumptive negative and a new specimen should be tested with alternative PCR molecular test. Invalid: Please collect a new specimen for repeat patient testing if clinically indicated. Lab Interpretation (test code = 83419-9) Normal [facility] WITH [id number] 15:20:00* Test Item Value Reference Range Interpretation Comme nts WBC (test code = 6690-2) See_Comment [Automated IguanaFixa AfterYes] The system which generated this result transmitted reference range: 4.20 - 10.70 10*3/?L. The reference range was not used to interpret this result as normal/abnormal. RBC (test code = 789-8) See_Comment L [Automated [employer]guana[employer] AfterYes] The system which generated this result transmitted reference range: 4.26 - 5.52 10*6/?L. The reference range was not used to interpret this result as normal/abnormal. HGB (test code = 718-7) 10.3 g/dL 12.2-16.4 L HCT (test code = 4544-3) 32.8 % 38.4-49.3 L MCV (test code = 787-2) 92.7 fL 81.7-95.6 MCH (test code = 785-6) 29.1 pg 26.1-32.7 MCHC (test code = 786-4) 31.4 g/dL 31.2-35 RDW-SD (test code = 37811-9) 56.3 fL 38.5-51.6 H RDW-CV (test code = 788-0) 16.3 % 12.1-15.4 H PLT (test code = 777-3) See_Comment [Automated [employer]gu[employer] AfterYes] The system which generated this result transmitted reference range: 150 - 328 10*3/?L. The reference range was not used to interpret this result as normal/abnormal. MPV (test code = 07025-0) 9.6 fL 9.8-13 L NRBC/100 WBC (test code = 9710506699) See_Comment [Automated me ssage] The system which generated this result transmitted reference range: 0.0 - 10.0 /100 WBCs. The reference range was not used to interpret this result as normal/abnormal. NRBC x10^3 (test code = 6878677195) <0.01 See_Comment [Automated messa ge] The system which generated this result transmitted reference range: 10*3/?L. The reference range was not used to interpret this result as normal/abnormal. GRAN MAT (NEUT) % (test code = 770-8) 62.9 % IMM GRAN % (test code = 5809741312) 0.30 % LYMPH % (test code = 736-9) 23.0 % MONO % (test code = 5905-5) 6.0 % EOS % (test code = 713-8) 6.2 % BASO % (test code = 706-2) 1.6 % GRAN MAT x10^3(ANC) (test code = 2977008358) 5.01 10*3/uL 1.99-6.95 IMM GRAN x10^3 (test code = 9848013104) <0.03 0-0.06 LYMPH x10^3 (test code = 731-0) 1.83 10*3/uL 1.09-3.23 MONO x10^3 (test code = 742-7) 0.48 10*3/uL 0.36-1.02 EOS x10^3 (test code = 711-2) 0.49 10*3/uL 0.06-0.53 BASO x10^3 (test code = 704-7) 0.13 10*3/uL 0.01-0.09 H Lab Interpretation (test code = 01491-9) Abnormal [facility]"
--- NOTE | 2024-11-05 14:05 | RAD REPORT ---
EXAM: CT brain without contrast HISTORY: STROKE ALERT COMPARISON: None TECHNIQUE: Multiple contiguous axial images were obtained and a CT of the brain without contrast. Sag ittal and coronal reformats were performed. One or more of the following dose reduction techniques were used: Automated exposure control, adjust ment of the mA and/or kV according to patient size, and/or iterative reconstruction. FINDINGS: 22 x 20 mm area of increased density is seen in the left frontal lobe with surrounding moderate edema present. There is subtle 6 mm subfalcine shift of the left frontal lobe to the right. Mild brain atrophy with mild periventricular and deep white matter chronic microvascular ischemic changes presen t. The calvarium is intact. The visualized paranasal sinuses and mastoid air cells are essentially clear . IMPRESSION: 22 x 20 mm area of increased density seen left frontal lobe with moderate surrounding edema mild left -to-right subfalcine herniation. This may be related to intraparenchymal hematoma or underlying mass. The findings were communicated with Freddy Castellanos MD at 11/05/2024 2:03 PM by telephone.
[2024-11-05] MEDS ORDERED: LORazepam 2 MG/ML VIAL ONE (14:07)
[2024-11-05] MEDS ORDERED: dexAMETHasone 10 MG/ML VIAL ONE (14:14)
[2024-11-05] MEDS ORDERED: NA CHLORIDE 0.9% 100 ML ONE (14:15)
[2024-11-05] MEDS ORDERED: FAMOTIDINE 20 MG/2 ML VIAL IV ONE (14:15)
[2024-11-05] MEDS ORDERED: LEVETIRACETAM 500 MG/5 ML VIAL IV ONE (14:15)
[2024-11-05 14:20] LABS: Absolute Basophils 0.1 K/uL (0-0.5); Absolute Lymphocytes (CBC) 3.1 K/uL (0.7-4.9); Absolute Monocytes 0.8 K/uL (0.1-1.3); Absolute Neutrophil 7.7 K/uL (1.8-8.0); Basophils % 0.7 % (0-1.3); Hematocrit 31.5 % (39.6-49.0); Hemoglobin 10.1 g/dL (13.6-17.9); Lymphocytes % 26.8 % (15.3-44.8); MCH 27.5 pg (27.0-35.0); MPV 7.4 fL (7.6-11.3); Monocytes % 6.7 % (3.3-12.3); Neutrophils % 65.8 % (41.7-73.7); Platelets 367 thou/uL (152-406); RBC Red Blood Cell Count 3.66 M/uL (4.33-5.43); Red Cell Distribution Width 17.5 % (12.1-15.2)
[2024-11-05 14:25] LABS: PT Prothrombin Time 13.6 SECONDS (10-13.0); Protime INR 1.2
--- NOTE | 2024-11-05 14:30 | EDPHYS ---
Physician Documentation [facility] Name: Lavon Antonio Age: 59 yrs Sex: Male : 1965 Arrival Date: 11/05/2024 Time: 13:50 Bed 4 Private MD: ED Physician Freddy Castellanos HPI: 11/05 14:20 This 59 yrs old Male presents to ER via Unassigned with complaints of Altered clare Mental Status. 14:20 The patient presents with confusion, decreased mental status, decreased responsiveness. clare Onset: The symptoms/episode began/occurred just prior to arrival. Possible causes: CVA or TIA, drug use, alcohol, head injury, low blood sugar, seizure, sepsis. Associated signs and symptoms: Pertinent positives: combativeness. Current symptoms: In the emergency department the patient's symptoms are unchanged from the initial presentation. Patient's baseline: Neuro: alert and fully oriented. The patient has not experienced similar symptoms in the past. Historical: - Allergies: 14:45 UNKNOWN; dd2 - PMHx: 14:45 kidney disease; dd2 - PSHx: 14:45 Unable to Obtain; dd2 - Immunization history:: Adult Immunizations unknown. - Infectious Disease History:: UNABLE TO OBTAIN. - Family history:: not pertinent. - Social history:: Smoking status: unknown. 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 Head/Face: Normocephalic, atraumatic. Eyes: Pupils equal round and reactive to light, extra-ocular motions intact. Lids and lashes normal. Conjunctiva and sclera are non-icteric and not injected. Cornea within normal limits. Periorbital areas with no swelling, redness, or edema. ENT: Nares patent. No nasal discharge, no septal abnormalities noted. Tympanic membranes are normal and external auditory canals are clear. Oropharynx with no redness, swelling, or masses, exudates, or evidence of obstruction, uvula midline. Mucous membranes moist. Neck: Trachea midline, no thyromegaly or masses palpated, and no cervical lymphadenopathy. Supple, full range of motion without nuchal rigidity, or vertebral point tenderness. No Meningismus. Chest/axilla: Normal chest wall appearance and motion. Nontender with no deformity. No lesions are appreciated. Cardiovascular: Regular rate and rhythm with a normal S1 and S2. No gallops, murmurs, or rubs. Normal PMI, no JVD. No pulse deficits. Respiratory: Lungs have equal breath sounds bilaterally, clear to auscultation and percussion. No rales, rhonchi or wheezes noted. No increased work of breathing, no retractions or nasal flaring. Abdomen/GI: Soft, non-tender, with normal bowel sounds. No distension or tympany. No guarding or rebound. No evidence of tenderness throughout. Back: No spinal tenderness. No costovertebral tenderness. Full range of motion. Skin: Warm, dry with normal turgor. Normal color with no rashes, no lesions, and no evidence of cellulitis. MS/ Extremity: Pulses equal, no cyanosis. Neurovascular intact. Full, normal range of motion., bilateral aka Psych: Awake, alert, with orientation to person, place and time. Behavior, mood, and affect are within normal limits. 14:24 Neuro: Orientation: unable to test, Mentation: confused, Memory: unable to test, Cranial nerves: no acute changes, Cerebellar function: unable to test, Motor: moves all fours, Sensation: unable to test, Gait: not tested. Babinski testing is normal, seizure activity, is not displayed by the patient, 14:29 ECG was reviewed by the Attending Physician. clare Vital Signs: 14:15 BP 132 / 89; Pulse 95; Resp 18; Pulse Ox 97% on R/A; Weight 89.36 kg; dd2 14:45 BP 125 / 83; Pulse 84; Resp 16; Pulse Ox 100% on 2 lpm NC; dd2 15:15 BP 124 / 84; Pulse 77; Resp 15; Pulse Ox 98% on 2 lpm NC; dd2 15:45 BP 116 / 89; Pulse 78; Resp 16; Pulse Ox 99% on 2 lpm NC; dd2 16:02 BP 123 / 86; Pulse 75; Resp 16; Pulse Ox 99% on 2 lpm NC; dd2 NIH Stroke Scale Scores: 14:10 NIHSS Score: 9 dd2 14:19 NIHSS Score: 9 es3 Newell Coma Score: 14:24 Eye Response: to voice(3). Motor Response: localizes pain(5). Verbal Response: clare incomprehensible(2). Total: 10. 14:45 Eye Response: spontaneous(4). Motor Response: localizes pain(5). Verbal Response: dd2 none(1). Total: 10. MDM: 13:56 Medical Screening Exam initiated clare 14:26 Differential Diagnosis altered mental status, sepsis, flu. Differential Diagnosis: CVA, clare electrolyte abnormality, alcohol intoxication, hypoglycemia, intracranial bleed, meningitis, overdose, pneumonia, seizure, TIA, volume depletion. Data reviewed: vital signs, nurses notes, lab test result(s), EKG, radiologic studies, CT scan, plain films. Consideration of Admission/Observation Escalation of care including admission/observation considered. I considered the following discharge prescriptions or medication management in the emergency department Medications were administered in the Emergency Department. See MAR. Independent interpretation of the following test(s) in the Emergency Department EKG: See my EKG interpretation above. Historians other than the Patient: Family Member: parents on phone by Blake. Care significantly affected by the following chronic conditions: Hypertension. Counseling: I had a detailed discussion with the patient and/or guardian regarding the historical points, exam findings, and any diagnostic results supporting the discharge/admit diagnosis, the presence of at least one elevated blood pressure reading (>120/80) during this emergency department visit, lab results, radiology results, the need to transfer to another facility, for higher level of care, [facility] does not immediately have the required specialist. 11/05 13:57 Order name: Basic Metabolic Panel; Complete Time: 15:08 [facility] 11/05 13:57 Order name: CBC with Diff; Complete Time: 14:33 [facility] 11/05 13:57 Order name: LFT's; Complete Time: 15:08 [facility] 11/05 13:57 Order name: Magnesium; Complete Time: 15:08 [facility] 11/05 13:57 Order name: NT PRO-BNP; Complete Time: 15:08 [facility] 11/05 13:57 Order name: PT-INR; Complete Time: 14:33 [facility] 11/05 13:57 Order name: Troponin HS; Complete Time: 15:08 [facility] 11/05 13:57 Order name: Lipase; Complete Time: 15:08 [facility] 11/05 13:58 Order name: Asprin; Complete Time: 15:08 [facility] 11/05 13:58 Order name: Tylenol Level; Complete Time: 15:08 [facility] 11/05 13:58 Order name: ETOH Level 11/05 15:11 Order name: BETA HYDROXYBUTYRATE 11/05 15:13 Order name: ABG 11/05 13:57 Order name: XRAY Chest (1 view); Complete Time: 15:08 [facility] 11/05 13:57 Order name: CT Stroke Brain w/o Contrast; Complete Time: 14:19 [facility] 11/05 13:57 Order name: Cardiac monitoring; Complete Time: 14:56 [facility] 11/05 13:57 Order name: EKG - Nurse/Tech; Complete Time: 14:56 [facility] 11/05 13:57 Order name: IV Saline Lock; Complete Time: 14:56 [facility] 11/05 13:57 Order name: Labs collected and sent; Complete Time: 14:56 [facility] 11/05 13:57 Order name: O2 Per Protocol; Complete Time: 14:56 [facility] 11/05 13:57 Order name: O2 Sat Monitoring; Complete Time: 14:56 [facility] 11/05 13:57 Order name: Blood Glucose Level; Complete Time: 14:29 [facility] 11/05 14:42 Order name: IV Saline Lock - Large Bore; Complete Time: 14:55 [facility] 11/05 15:16 Order name: Seizure Precautions; Complete Time: 15:18 [facility] EC:29 Rate is 91 beats/min. Rhythm is regular. QRS [place] is Normal. MN interval is normal. QRS clare interval is normal. QT interval is normal. No Q waves. T waves are Normal. No ST changes noted. Clinical impression: NSR w/ Non-specific ST/T Changes and No evidence of ischemia. Interpreted by me. Reviewed by me. Administered Medications: 14:13 Drug: Ativan IVP 2 mg IVP once Route: IVP; Site: left antecubital; dd2 14:44 Follow up: Response: No adverse reaction dd2 14:29 Drug: NS 0.9% IV 500 ml IV at 100 ml/hr once Route: IV; Rate: 100 ml/hr; Site: left dd2 antecubital; 14:55 Follow up: IV Status: Completed infusion dd2 14:29 Drug: Keppra IV 2000 mg IV at per protocol once Route: IV; Rate: per protocol; Site: dd2 left antecubital; 14:55 Follow up: IV Status: Completed infusion dd2 14:29 Drug: Decadron - Dexamethasone IVP 10 mg IVP once Route: IVP; Site: left antecubital; dd2 14:44 Follow up: Response: No adverse reaction dd2 14:29 Drug: Famotidine IVP 20 mg IVP once; dilute with 10 mL 0.9% NaCl; give over 2 minutes dd2 Route: IVP; Site: left antecubital; 14:44 Follow up: Response: No adverse reaction dd2 15:28 Drug: D5W IV 1000 ml, Sodium Bicarbonate IVP 150 mEq IV at 75 ml/hr continuous Route: aa5 IV; Rate: 75 ml/hr; Site: left antecubital; 16:11 Follow up: IV Status: Infusion continued upon transfer dd2 Point of Care Testing: Blood Glucose: 13:55 Blood Glucose: 121 mg/dL; [id number] Ranges: Critical Glucose Levels:Adult <50 mg/dl or >400 mg/dl <40 mg/dl or >180 mg/dl Disposition Summary: 11/05/24 14:29 Transfer Ordered Notes: Transfer Location: [facility] clare Reason: Higher level of care clare Condition: Serious clare Problem: new clare Symptoms: are unchanged clare Accepting Physician: to [facility](11/05/24 16:16) dd2 Diagnosis - Altered mental status, unspecified clare - Abnormal brain scan - 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 Dysarthria (speech clarity - read or repeat words) - 2(Severe) 11. Extinction and Inattention (visual/tactile/auditory/spatial/personal) - 0(No abnormality) 1a. Level of Consciousness (LOC) - 0(Alert) 1b. Level of Consciousness (LOC) (Month \T\ Age) - 2(Neither) 1c. LOC Commands (Open \T\ Closes Eyes/Ticketer) - 2(Neither) 2. Best Gaze (Lateral Gaze Paresis) - 0(Normal) 3. Visual Field Loss - 0(No visual loss) 4. Facial Palsy - 0(Normal) 5a. Left Arm: Motor (10-second hold) - 0(No drift) 5b. Right Arm: Motor (10-second hold) - 0(No drift) 6a. Left Leg: Motor (5-second hold - always test supine) - 0(No drift) 6b. Right Leg: Motor (5-second hold - always test supine) - 0(No drift) 7. Limb Ataxia (finger/nose \T\ heel/sims - test with eyes open) - 0(Absent) 8. Sensory Loss (pinprick arms/legs/face) - 0(Normal) 9. Best Language: Aphasia (description/naming/reading) - 3(Mute, global aphasia) Initials: dd2 NIH Stroke Scale - NIH Stroke Score Date: 11/05/2024 Time: 14:19 Total Score = 9 10. Dysarthria (speech clarity - read or repeat words) - 2(Severe) 11. Extinction and Inattention (visual/tactile/auditory/spatial/personal) - 0(No abnormality) 1a. Level of Consciousness (LOC) - 0(Alert) 1b. Level of Consciousness (LOC) (Month \T\ Age) - 2(Neither) 1c. LOC Commands (Open \T\ Closes Eyes/Ticketer) - 2(Neither) 2. Best Gaze (Lateral Gaze Paresis) - 0(Normal) 3. Visual Field Loss - 0(No visual loss) 4. Facial Palsy - 0(Normal) 5a. Left Arm: Motor (10-second hold) - 0(No drift) 5b. Right Arm: Motor (10-second hold) - 0(No drift) 6a. Left Leg: Motor (5-second hold - always test supine) - 0(No drift) 6b. Right Leg: Motor (5-second hold - always test supine) - 0(No drift) 7. Limb Ataxia (finger/nose \T\ heel/sims - test with eyes open) - 0(Absent) 8. Sensory Loss (pinprick arms/legs/face) - 0(Normal) 9. Best Language: Aphasia (description/naming/reading) - 3(Mute, global aphasia) Initials: es3 Signatures: Dispatcher [employer] EDMS Freddy Castellanos MD MD cha Calderon, Audri, RN RN aa5 NATHALIE OLEA RN RN dd2 Corrections: (The following items were deleted from the chart) 13:58 13:58 BASIC METABOLIC PANEL+C.LAB.BRZ ordered. EDMS EDMS 13:58 13:58 CBC+H.LAB.BRZ ordered. EDMS EDMS 13:58 13:58 HEPATIC FUNCTION+C.LAB.BRZ ordered. EDMS EDMS 13:58 13:58 MAGNESIUM+C.LAB.BRZ ordered. EDMS EDMS 13:58 13:58 PROBNP+C.LAB.BRZ ordered. EDMS EDMS 13:58 13:58 PROTIME (+INR)+COAG.LAB.BRZ ordered. EDMS EDMS 13:58 13:58 Troponin High Sensitivity+C.LAB.BRZ ordered. EDMS EDMS 13:58 13:58 LIPASE+C.LAB.BRZ ordered. EDMS EDMS 13:58 13:58 Chest Single View+RAD.RAD.BRZ ordered. EDMS EDMS 13:58 13:58 CT-STROKE BRAIN W/O CONTRAST+CT.RAD.BRZ ordered. EDMS EDMS 13:59 13:59 ETHANOL+C.LAB.BRZ ordered. EDMS EDMS 14:34 14:29 to [facility] clare clare 16:00 14:34 to [facility] clare clare 16:16 16:00 to [facility] clare dd2
--- NOTE | 2024-11-05 14:30 | ER ---
Nurse's Notes 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 Ebola Screen: No symptoms or risks identified at this time. An acute neurological deficit is present. The charge nurse has been notified. The patient has been moved to a treatment area. Pre-hospital glucose is not applicable to this patient. Initial Sepsis Screen: Does the patient meet any 2 criteria?. Risk Assessment: Do you want to hurt yourself or someone else? Unable to obtain. 13:55 Method Of Arrival: Wheelchair jl7 13:55 Chief complaint: Friend and/or Co-Worker states: Was taking pt to Dr's appointment and dd2 pt began shaking and couldn't speak anymore and passed out. Onset of symptoms was November 05, 2024 at 13:40. Stroke Activation: Symptom onset < 3 hours Physician: ED Attending; Name: Emanuel; Notified At: 13:50; Arrived At: 13:50 Physician: Mid-Level Provider; Name: ; Notified At: 13:50; Arrived At: Physician: [not used]; Name: ; Notified At: ; Arrived At: Physician: [not used]; Name: ; Notified At: ; Arrived At: Physician: [not used]; Name: ; Notified At: ; Arrived At: Historical: - Allergies: 14:45 UNKNOWN; dd2 - PMHx: 14:45 kidney disease; dd2 - PSHx: 14:45 Unable to Obtain; dd2 - Immunization history:: Adult Immunizations unknown. - Infectious Disease History:: UNABLE TO OBTAIN. - Family history:: not pertinent. - Social history:: Smoking status: unknown. Screenin:19 VAN Screening: Arm Drift: Patient shows no arm weakness. Visual Disturbance: No visual es3 disturbance noted. Aphasia: Patient exhibits both expressive and receptive aphasia. Provider notified of +VAN scoring. Neglect: No neglect noted. 14:20 [place] Swallow Protocol Exclusion Criteria: Brief Cognitive Screen What is your name? es3 Abnormal Where are you right now? Abnormal What year is it? Abnormal Oral Mechanism Examination Facial Symmetry: Pt combative Motion: Lip Closure: Oral Mechanism Result: Abnormal: Patient combative, transfer pending for higher level of care. 3 oz Water Swallow Challenge: Pt able to drink all water without stopping, coughing, choking or throat clearing: No Result: FAIL Notified: Freddy Junior MD. 14:45 [facility] ED Fall Risk Assessment (Adult) History of falling in the last 3 months, dd2 including since admission Confusion or Disorientation Yes (5 pts) Intoxicated or Sedated Impaired Gait Yes (1 pt) Mobility Assist Device Used Yes (1 pt) Altered Elimination Yes (1 pt) Score/Fall Risk Level 3 or more points = High Risk Oriented to surroundings, Maintained a safe environment, Educated pt \T\ family on fall prevention, incl call for assistance when getting out of bed, Assessed \T\ reinforced patient's understanding of fall precautions, Hourly rounding (assess needs \T\ fall precautionary measures) done, Implemented a Fall Risk Plan of Care, Activated bed/chair alarm, Remained w/in arm's length of patient and in sight while toileting. Abuse screen: Denies threats or abuse. Denies injuries from another. Nutritional screening: No deficits noted. Tuberculosis screening: No symptoms or risk factors identified. Assessment: 14:10 VAN Scoring: Arm Drift: Patients demonstrates NO arm weakness. Patient is VAN Negative. dd2 [place] Swallow Protocol Exclusion Criteria: Exclusion Criteria Result: Defer \T\ Re-attempt Brief Cognitive Screen What is your name? Abnormal Where are you right now? Abnormal What year is it? Abnormal Result: FAIL. [place] Swallow Protocol Oral Mechanism Examination Facial Symmetry: Abnormal Motion: Abnormal Lip Closure: Abnormal Oral Mechanism Result: Abnormal: . 3 oz Water Swallow Challenge: Result: FAIL Notified: Freddy Junior MD. TNKase (Tenecteplase) Screening: Contraindications: Intracranial hemorrhage and its risk factor and suspicion of subarachnoid bleed: Yes. 14:41 Pain: Unable to use pain scale. Does not appear to understand pain scale. Neuro: dd2 [place] Agitation-Sedation Scale (RASS): +3 Very Agitated Level of Consciousness is awake, alert, confused, Oriented to none Speech with expressive aphasia noted, Facial symmetry appears normal, Pupils are PERRLA, Intact Seizure activity reported prior to arrival. Cardiovascular: No deficits noted. Patient's skin is warm and dry. Rhythm is sinus rhythm. Respiratory: Airway is patent Respiratory effort is even, unlabored, Respiratory pattern is regular, symmetrical, Breath sounds are clear bilaterally. GI: No deficits noted. Bowel sounds present X 4 quads. Abd is soft and non tender X 4 quads. : No deficits noted. EENT: No deficits noted. Derm: Wound noted right jew Wound is SMALL ABRASION TO RT CHEONDOISM WITH DRIED BLOOD NOTED. Musculoskeletal: No deficits noted. Circulation, motion, and sensation intact. Range of motion: intact in all extremities. 14:41 General: Appears distressed, Behavior is restless, uncooperative. dd2 Vital Signs: 14:15 BP 132 / 89; Pulse 95; Resp 18; Pulse Ox 97% on R/A; Weight 89.36 kg; dd2 14:45 BP 125 / 83; Pulse 84; Resp 16; Pulse Ox 100% on 2 lpm NC; dd2 15:15 BP 124 / 84; Pulse 77; Resp 15; Pulse Ox 98% on 2 lpm NC; dd2 15:45 BP 116 / 89; Pulse 78; Resp 16; Pulse Ox 99% on 2 lpm NC; dd2 16:02 BP 123 / 86; Pulse 75; Resp 16; Pulse Ox 99% on 2 lpm NC; dd2 Magalie Coma Score: 14:24 Eye Response: to voice(3). Motor Response: localizes pain(5). Verbal Response: clare incomprehensible(2). Total: 10. 14:45 Eye Response: spontaneous(4). Motor Response: localizes pain(5). Verbal Response: dd2 none(1). Total: 10. NIH Stroke Scale Scores: 14:10 NIHSS Score: 9 dd2 14:19 NIHSS Score: 9 es3 ED Course: 13:52 Patient arrived in ED. cj3 13:55 Arm band placed on right wrist. jl7 13:56 Freddy Junior MD is Attending Physician. clare 14:00 CT Stroke Brain w/o Contrast In Process Unspecified. EDMS 14:12 NATHALIE OLEA, RN is Primary Nurse. dd2 14:20 [facility] transfer center called by Dr. junior to initiate transfer, spoke with oli. ty 14:42 Emanuel contacted [facility] for patient transport. ty 14:43 XRAY Chest (1 view) In Process Unspecified. EDMS 14:45 Patient has correct armband on for positive identification. Bed in low position. Call dd2 light in reach. Side rails up X2. Seizure precautions initiated. Client placed on continuous cardiac and pulse oximetry monitoring. NIBP monitoring applied. clinical research monitor on. Noise minimized. Warm blanket given. Pillow given. Verbal reassurance given. 14:45 No provider procedures requiring assistance completed. EKG done, by ED staff, reviewed dd2 by Freddy Junior MD. Inserted saline lock: 20 gauge in left antecubital area, using aseptic technique. Blood collected. Flushed with 10 mL NS. Oxygen administration via nasal cannula \T\ 2L/min. 15:12 Triage completed. jl7 15:40 [facility] contacted for update on eta, eta 10 minutes. ty 15:44 transfer center called to escalate nurse 2 nurse, spoke with jelly. ty 16:12 Provided Education on: pt's father educated on transfer. dd2 16:12 Patient transferred, IV remains in place. dd2 Restraints: 14:35 Non-Violent Restraint: Initial order obtained. November 05, 2024 at 14:10 Staff present on dd2 initiation: DR. JUNIOR, KATLYN GORDON, RN, NATHALIE SOTO, KM. Indications for initiating restraints: Actions/Behavior observed: repeated attempts to remove/tamper with lines/tubes/IV med devices \T\ wound dressing, Confused/disoriented, has impaired decision making, unable to follow instructions, Less restrictive alternatives attempted: reoriented to location, medicated for pain/anxiety, lines/tubes covered, placed on bed alarm, Alternative interventions: Ineffective. Clinical justification for use: patient safety, Restraint Status: Soft wrist restraint (Right) started Soft wrist restraint (Left) started Soft ankle restraint (Right) started Soft ankle restraint (Left) started Family notification/education. 16:00 Non-Violent Restraint: Circulation: Warm/dry, capillary refill WNL. Skin integrity: dd2 Intact, healthy with good turgor. Signs of injury related to restraint: No injuries noted. Range of Motion patient asleep. Level of distress \T\ agitation: patient asleep, Hydration/Food: failed swallow screen Elimination/Hygiene: Patient asleep. Observed behaviors: Intubated/sedated. other pt asleep. Less restrictive alternatives attempted: Decrease environmental stimuli. Medicated for pain/anxiety. bed alarm activated. Alt interventions: Effective. Clinical justification for continued use Line protection. patient safety. Criteria to discontinue restraint met:Patient no longer exhibits self injurious behaviors. Restraint status: Other restraints d/c Restraint Discontinued on November 05, 2024 at 16:00 Soft wrist restraint (Right) discontinued. Soft wrist restraint (Left) discontinued. Soft ankle restraint (Right) discontinued. Soft ankle restraint (Left) discontinued. Administered Medications: 14:13 Drug: Ativan IVP 2 mg IVP once Route: IVP; Site: left antecubital; dd2 14:44 Follow up: Response: No adverse reaction dd2 14:29 Drug: NS 0.9% IV 500 ml IV at 100 ml/hr once Route: IV; Rate: 100 ml/hr; Site: left dd2 antecubital; 14:55 Follow up: IV Status: Completed infusion dd2 14:29 Drug: Keppra IV 2000 mg IV at per protocol once Route: IV; Rate: per protocol; Site: dd2 left antecubital; 14:55 Follow up: IV Status: Completed infusion dd2 14:29 Drug: Decadron - Dexamethasone IVP 10 mg IVP once Route: IVP; Site: left antecubital; dd2 14:44 Follow up: Response: No adverse reaction dd2 14:29 Drug: Famotidine IVP 20 mg IVP once; dilute with 10 mL 0.9% NaCl; give over 2 minutes dd2 Route: IVP; Site: left antecubital; 14:44 Follow up: Response: No adverse reaction dd2 15:28 Drug: D5W IV 1000 ml, Sodium Bicarbonate IVP 150 mEq IV at 75 ml/hr continuous Route: aa5 IV; Rate: 75 ml/hr; Site: left antecubital; 16:11 Follow up: IV Status: Infusion continued upon transfer dd2 Medication: 14:45 VIS not applicable for this client. dd2 Point of Care Testing: Blood Glucose: 13:55 Blood Glucose: 121 mg/dL; jl7 Ranges: Outcome: 14:29 ER care complete, transfer ordered by clare 16:12 Transferred by helicopter [place] [facility] [facility]. dd2 16:12 critical 16:12 Instructed on the need for transfer, Demonstrated understanding of instructions, pt's father given instructions 16:16 Patient left the ED. dd2 NIH Stroke Scale - NIH Stroke Score Date: 11/05/2024 Time: 14:10 Total Score = 9 10. Dysarthria (speech clarity - read or repeat words) - 2(Severe) 11. Extinction and Inattention (visual/tactile/auditory/spatial/personal) - 0(No abnormality) 1a. Level of Consciousness (LOC) - 0(Alert) 1b. Level of Consciousness (LOC) (Month \T\ Age) - 2(Neither) 1c. LOC Commands (Open \T\ Closes Eyes/Microfiche Camera Operator) - 2(Neither) 2. Best Gaze (Lateral Gaze Paresis) - 0(Normal) 3. Visual Field Loss - 0(No visual loss) 4. Facial Palsy - 0(Normal) 5a. Left Arm: Motor (10-second hold) - 0(No drift) 5b. Right Arm: Motor (10-second hold) - 0(No drift) 6a. Left Leg: Motor (5-second hold - always test supine) - 0(No drift) 6b. Right Leg: Motor (5-second hold - always test supine) - 0(No drift) 7. Limb Ataxia (finger/nose \T\ heel/sims - test with eyes open) - 0(Absent) 8. Sensory Loss (pinprick arms/legs/face) - 0(Normal) 9. Best Language: Aphasia (description/naming/reading) - 3(Mute, global aphasia) Initials: dd2 NIH Stroke Scale - NIH Stroke Score Date: 11/05/2024 Time: 14:19 Total Score = 9 10. Dysarthria (speech clarity - read or repeat words) - 2(Severe) 11. Extinction and Inattention (visual/tactile/auditory/spatial/personal) - 0(No abnormality) 1a. Level of Consciousness (LOC) - 0(Alert) 1b. Level of Consciousness (LOC) (Month \T\ Age) - 2(Neither) 1c. LOC Commands (Open \T\ Closes Eyes/Microfiche Camera Operator) - 2(Neither) 2. Best Gaze (Lateral Gaze Paresis) - 0(Normal) 3. Visual Field Loss - 0(No visual loss) 4. Facial Palsy - 0(Normal) 5a. Left Arm: Motor (10-second hold) - 0(No drift) 5b. Right Arm: Motor (10-second hold) - 0(No drift) 6a. Left Leg: Motor (5-second hold - always test supine) - 0(No drift) 6b. Right Leg: Motor (5-second hold - always test supine) - 0(No drift) 7. Limb Ataxia (finger/nose \T\ heel/sism - test with eyes open) - 0(Absent) 8. Sensory Loss (pinprick arms/legs/face) - 0(Normal) 9. Best Language: Aphasia (description/naming/reading) - 3(Mute, global aphasia) Initials: es3 Signatures: Dispatcher [employer] Freddy Allen MD MD cha Calderon, Audri, RN RN aa5 Isael Gaspar RN RN jl7 Fabiola Winn RN RN es3 Marshall Muñoz DIANA, RN RN dd2 Alanis Lambert 3
[2024-11-05 14:48] LABS: ALT/SGPT 22 U/L (16-61); AST/SGOT 19 U/L (15-37); Albumin 3.1 g/dL (3.4-5.0); Albumin/Globulin Ratio 0.6 (1.1-1.8); Alkaline Phosphatase 124 U/L (45-117); Anion Gap 25.4 mEq/L (5.0-15.0); BUN Blood Urea Nitrogen 109 mg/dL (7-18); Bilirubin Total 0.3 mg/dL (0.2-1.0); Globulin 4.8 g/dL (2.3-3.5); Glomerular Filtration Rate 6 ml/min (=/>90); Glucose Level 148 mg/dL (74-106); Lipase 422 U/L (13-75); Magnesium 2.3 mg/dL (1.6-2.4); NT PRO-BNP 1142 pg/mL (<125); Potassium 4.4 mEq/L (3.5-5.1); Protein, Total 7.9 g/dL (6.4-8.2); Sodium Level 141 mEq/L (136-145); Troponin High Sensitivity 10.9 pg/mL (<58.9)
--- NOTE | 2024-11-05 14:55 | RAD REPORT ---
EXAMINATION: ONE VIEW CHEST XR CLINICAL INDICATION: COUGH TECHNIQUE: Frontal chest projection is submitted. Examination is limited by patient positioning and t echnique. COMPARISON: 04/09/2020 FINDINGS: Mild bilateral pulmonary edema is suspected. The heart is moderately enlarged in size. No displaced f ractures identified. IMPRESSION: Mild CHF versus volume overload pattern is suspected.
[2024-11-05 15:01] LABS: Bilirubin Direct < 0.2 mg/dL (0-0.2); Bilirubin Indirect, Calculated 0.1 mg/dL (0.2-0.8)
[2024-11-05 15:03] LABS: Bicarbonate < 8 mEq/L (21-32)
[2024-11-05] MEDS ORDERED: D5W 1,000 ML IV ONE (15:21)
[2024-11-05 16:04] LABS: Arterial Blood Carboxyhemoglob 0.5 % (0-1.5); Blood Gas Oxyhemoglobin 94.8 % (94-97); Blood Gas THB 9.5 g/dl (12-18); Blood O2 Saturation 97.8 % (92-98.5)
[2024-11-05 16:38] VITALS: O2SAT 99
[2024-11-05 16:39] VITALS: BP 123/86
== END 2024-11-05 16:16 | disposition short-term general hospital (02) ==
LOC: ER 13:50
DX: R41.82 Altered mental status, unspecified (principal); G93.89 Other specified disorders of brain; E87.20 Acidosis, unspecified; Z99.2 Dependence on renal dialysis; N28.9 Disorder of kidney and ureter, unspecified; R29.709 NIHSS score 9
CPT/HCPCS: 96365; 96367; 85025; 80048; 36415; 83735; 85610; 80076; 84484; 83690; 82010; 83880; 70450; 71045; 82805; 96375; 99285; 80143; 80179; 82077; 36600; J1953; J1100; 93005

== ENCOUNTER 2025-04-04 00:18 | Emergency (ER) | payer OTHER ==
[2025-04-04] MEDS ORDERED: NA CHLORIDE 0.9% 1,000 ML ONE (00:32)
[2025-04-04 00:38] LABS: Absolute Lymphocytes (CBC) 1.4 K/uL (0.7-4.9); Hematocrit 25.2 % (39.6-49.0); Hemoglobin 8.4 g/dL (13.6-17.9); MCH 32.1 pg (27.0-35.0); MCHC 33.5 g/dL (32.0-36.0); MCV 96.0 fL (80-100); MPV 7.9 fL (7.6-11.3); Nucleated RBC Absolute Count 0.0 (0-0); Nucleated Red Blood Cells % 0.0 % (0-0); RBC Red Blood Cell Count 2.62 M/uL (4.33-5.43); White Blood Count 5.50 thou/uL (4.3-10.9)
[2025-04-04 00:46] LABS: PT Prothrombin Time 12.4 SECONDS (10-13.0); Protime INR 1.1
[2025-04-04 00:55] LABS: Influenza A Ag Negative; Influenza B Ag Negative; SARS-CoV-2 Antigen Rapid Res Negative (Negative)
[2025-04-04] MEDS ORDERED: MECLIZINE HCL 12.5 MG TAB ONE (00:55)
[2025-04-04 01:06] LABS: Albumin 2.4 g/dL (3.4-5.0); Albumin/Globulin Ratio 0.5 (1.1-1.8); Alkaline Phosphatase 60 U/L (45-117); Anion Gap 12.1 mEq/L (5.0-15.0); BUN Blood Urea Nitrogen 38 mg/dL (7-18); Globulin 4.5 g/dL (2.3-3.5); Glucose Level 90 mg/dL (74-106); NT PRO-BNP 5033 pg/mL (<125); Troponin High Sensitivity 9.5 pg/mL (<58.9)
[2025-04-04 01:08] LABS: ALT/SGPT < 14 U/L (16-61); AST/SGOT 29 U/L (15-37); Bilirubin Indirect, Calculated 0.2 mg/dL (0.2-0.8); Magnesium 2.2 mg/dL (1.6-2.4); Potassium 4.1 mEq/L (3.5-5.1); Thyroid Stimulating Hormone 7.180 uIU/mL (0.358-3.740)
--- NOTE | 2025-04-04 03:09 | EDPHYS ---
Physician Documentation [facility] Name: Lavon Antonio Age: 60 yrs Sex: Male : 1965 Arrival Date: 04/04/2025 Time: 00:15 Bed IW1 Private MD: ED Physician Shaquille Munguia HPI: 04/04 03:07 This 60 yrs old Other Race Male presents to ER via Ambulatory with complaints of sp4 Dizziness. 04/05 00:14 60-year-old presents with complaint of dizziness and feeling unwell. Patient presents sp4 with EMS. History of end-stage renal disease on hemodialysis . Last dialysis Saturday.. Historical: - Allergies: 04/04 00:40 NKDA; cc6 - Home Meds: 00:40 None [Active]; cc6 - PMHx: 00:40 HD - MWF; kidney disease; cc6 - PSHx: 00:40 right upper arm fistula (kidney disease); cc6 - Immunization history:: Adult Immunizations up to date. - Infectious Disease History:: Denies. - Social history:: Smoking status: Patient denies any tobacco usage or history of. - Family history:: not pertinent. ROS: 04/05 00:15 Constitutional: Negative for fever, chills, and weight loss, positive for dizziness sp4 All other systems are negative, Exam: 00:15 Constitutional: This is a well developed, well nourished patient who is awake, alert, sp4 and in no acute distress. There is a right upper arm hemodialysis fistula Head/Face: Normocephalic, atraumatic. Eyes: Pupils equal round and reactive to light, extra-ocular motions intact. Lids and lashes normal. Conjunctiva and sclera are not injected. Cornea within normal limits. Periorbital areas with no swelling, redness, or edema. ENT: Nares patent. No nasal discharge, no septal abnormalities noted. Tympanic membranes are normal and external auditory canals are clear. Oropharynx with no redness, swelling, or masses, exudates, or evidence of obstruction, uvula midline. Mucous membranes moist. Neck: Trachea midline, no thyromegaly or masses palpated, and no cervical lymphadenopathy. Supple, full range of motion without nuchal rigidity, or vertebral point tenderness. Chest/axilla: Normal chest wall appearance and motion. Nontender with no deformity. No lesions are appreciated. Cardiovascular: Regular rate and rhythm with a normal S1 and S2. No gallops, murmurs, or rubs. No pulse deficits. Respiratory: Lungs have equal breath sounds bilaterally, clear to auscultation and percussion. No rales, rhonchi or wheezes noted. No increased work of breathing, no retractions or nasal flaring. Abdomen/GI: Soft, with normal bowel sounds. No distension or tympany. No guarding or rebound. No evidence of tenderness throughout. Back: No spinal tenderness. No costovertebral tenderness. Skin: Warm, dry with normal turgor. Normal color with no rashes, no lesions, and no evidence of cellulitis. MS/ Extremity: Pulses equal, no cyanosis. Neurovascular intact. Full, normal range of motion. Neuro: Awake and alert, GCS 15, oriented to person, place, time, and situation. Cranial nerves II-XII grossly intact. Motor strength 5/5 in all extremities. Sensory grossly intact. Psych: Awake, alert, with orientation to person, place and time. Behavior, mood, and affect are within normal limits 00:15 ECG was reviewed by the Attending Physician. EKG at 0029 normal sinus rhythm, normal sp4 EKG. Vital Signs: 04/04 00:15 BP 117 / 76; Pulse 87; Resp 17; Temp 98.4; Pulse Ox 100% ; Weight 74.5 kg; Height 5 ft. cc6 3 in. ; Pain 0/10; 01:14 BP 111 / 70; Pulse 82; Resp 18; Temp 98.4; Pulse Ox 100% ; cc6 02:14 BP 108 / 69; Pulse 68; Resp 16; Pulse Ox 98% on R/A; kd3 02:40 BP 114 / 75; Pulse 87; Resp 16; Pulse Ox 98% on R/A; kd3 00:15 Body Mass Index 29.09 (74.50 kg, 160.02 cm) cc6 00:15 Pain Scale: Adult cc6 NIH Stroke Scale Scores: 04/05 00:15 NIHSS Score: 0 sp4 Magalie Coma Score: 04/04 00:43 Eye Response: spontaneous(4). Motor Response: obeys commands(6). Verbal Response: cc6 oriented(5). Total: 15. 01:14 Eye Response: spontaneous(4). Motor Response: obeys commands(6). Verbal Response: cc6 oriented(5). Total: 15. 04/05 00:15 Eye Response: spontaneous(4). Motor Response: obeys commands(6). Verbal Response: sp4 oriented(5). Total: 15. MDM: 04/04 03:08 Medical Screening Exam initiated sp4 05:03 ED course: FINDINGS: Generalized parenchymal volume loss. No hydrocephalus. No midline sp4 shift. The basal cisterns are patent. No abnormal extra axial collection. No acute intracranial hemorrhage or developing territorial infarct. Preserved cheema-white differentiation. Scattered chronic microangiopathic ischemic white matter changes. Orbital contents are unremarkable. The paranasal sinuses and mastoid air cells are well pneumatized. No acute calvarial abnormality. Left pterional craniotomy defect. IMPRESSION: 1. No acute intracranial pathology. . 04/05 00:18 Differential diagnosis: cardiac arrhythmia, generalized weakness, GI bleed, head sp4 injury, near-syncope, sepsis, syncope, TIA, vertigo. Data reviewed: vital signs, nurses notes, EMS record, old medical records, lab test result(s), EKG, radiologic studies, CT scan, plain films. Consideration of Admission/Observation Escalation of care including admission/observation considered. ED course: Patient requested to be discharged home. Patient states he is tired of waiting. Patient has unremarkable exam. No signs of acute medical emergency. No signs of CVA or TIA. Stable for discharge home advised follow-up with Dr. Gutierrez to continue hemodialysis. 04/04 00:23 Order name: Basic Metabolic Panel; Complete Time: 05:03 04/04 00:23 Order name: CBC with Diff; Complete Time: 05:03 04/04 00:23 Order name: LFT's; Complete Time: 05:03 04/04 00:23 Order name: Magnesium; Complete Time: 05:03 04/04 00:23 Order name: NT PRO-BNP; Complete Time: 05:03 04/04 00:23 Order name: PT-INR; Complete Time: 05:03 04/04 00:23 Order name: Troponin HS; Complete Time: 05:03 04/04 00:24 Order name: COVID-19 Ag + Flu A+B Ag; Complete Time: 05:03 sp4 04/04 00:24 Order name: TSH; Complete Time: 05:03 sp4 04/04 00:24 Order name: T4 Free; Complete Time: 05:03 sp4 04/04 00:23 Order name: XRAY Chest (1 view); Complete Time: 00:17 sp4 04/04 00:24 Order name: CT Head Brain wo Cont; Complete Time: 00: sp4 04/04 00:23 Order name: Cardiac monitoring; Complete Time: 00: sp4 04/04 00:23 Order name: EKG - Nurse/Tech; Complete Time: 00: sp4 04/04 00:23 Order name: IV Saline Lock; Complete Time: : sp4 04/04 00:23 Order name: Labs collected and sent; Complete Time: : sp4 04/04 00:23 Order name: O2 Per Protocol; Complete Time: : sp4 04/04 00:23 Order name: O2 Sat Monitoring; Complete Time: :4 EC/28 00:29 Rate is 81 beats/min. Rhythm is regular, Normal Sinus Rhythm. QRS [place] is Normal. [place] sp4 interval is normal. QRS interval is normal. QT interval is normal. No Q waves. T waves are Normal. Clinical impression: No evidence of ischemia. Interpreted by me. Reviewed by me. Administered Medications: 00:43 Not Given (Physician Discretion): ns 0.9% 1000 ml IV at 1000 ml once; to be given as a kd3 bolus over 60 minutes 01:04 Drug: Meclizine PO 25 mg PO once Route: PO; cc6 01:16 Follow up: Response: No adverse reaction cc6 Disposition Summary: 04/04/25 03:08 Discharge Ordered Notes: Location: Home sp4 Problem: new sp4 Symptoms: have improved sp4 Condition: Stable sp4 Diagnosis - Dizziness and giddiness sp4 - Acute lightheadedness sp4 Followup: sp4 - With: Private Physician - When: 7 - 10 days - Reason: Recheck today's complaints Followup: sp4 - With: Brayden Gutierrez DO - When: 7 - 10 days - Reason: Recheck today's complaints Discharge Instructions: - Discharge Summary Sheet sp4 - Dizziness sp4 Forms: - Patient Portal Instructions sp4 NIH Stroke Scale - NIH Stroke Score Date: 04/05/2025 Time: 00:15 Total Score = 0 10. Dysarthria (speech clarity - read or repeat words) - 0(Normal) 11. Extinction and Inattention (visual/tactile/auditory/spatial/personal) - 0(No abnormality) 1a. Level of Consciousness (LOC) - 0(Alert) 1b. Level of Consciousness (LOC) (Month \T\ Age) - 0(Both) 1c. LOC Commands (Open \T\ Closes Eyes/Air Traffic Supervisor) - 0(Both) 2. Best Gaze (Lateral Gaze Paresis) - 0(Normal) 3. Visual Field Loss - 0(No visual loss) 4. Facial Palsy - 0(Normal) 5a. Left Arm: Motor (10-second hold) - 0(No drift) 5b. Right Arm: Motor (10-second hold) - 0(No drift) 6a. Left Leg: Motor (5-second hold - always test supine) - 0(No drift) 6b. Right Leg: Motor (5-second hold - always test supine) - 0(No drift) 7. Limb Ataxia (finger/nose \T\ heel/sims - test with eyes open) - 0(Absent) 8. Sensory Loss (pinprick arms/legs/face) - 0(Normal) 9. Best Language: Aphasia (description/naming/reading) - 0(No aphasia) Initials: sp4 Signatures: Dispatcher [employer] EDMS Shaquille Munguia MD MD sp4 Talisha Doyle RN RN cc6 Marianne Hoffman RN kd3 Corrections: (The following items were deleted from the chart) 00:24 00:24 BASIC METABOLIC PANEL+C.LAB.BRZ ordered. EDMS EDMS 00:24 00:24 CBC+H.LAB.BRZ ordered. EDMS EDMS 00:24 00:24 HEPATIC FUNCTION+C.LAB.BRZ ordered. EDMS EDMS 00:24 00:24 MAGNESIUM+C.LAB.BRZ ordered. EDMS EDMS 00:24 00:24 PROBNP+C.LAB.BRZ ordered. EDMS EDMS 00:24 00:24 PROTIME (+INR)+COAG.LAB.BRZ ordered. EDMS EDMS 00:24 00:24 Troponin High Sensitivity+C.LAB.BRZ ordered. EDMS EDMS 00:24 00:24 Chest Single View+RAD.RAD.BRZ ordered. EDMS EDMS 00:24 00:24 Head Brain Wo Cont+CT.RAD.BRZ ordered. EDMS EDMS 00:24 00:24 COVID-19 Ag + Flu A+B Ag+I.LAB.BRZ ordered. EDMS EDMS 00:24 00:24 THYROID STIMULAT HORMONE+C.LAB.BRZ ordered. EDMS EDMS 00:24 00:24 T4 FREE+C.LAB.BRZ ordered. EDMS EDMS 04/05 00:15 00:14 60-year-old presents with complaint of dizziness and feeling unwell. sp4 Patient presents with EMS. History of end-stage renal disease on hemodialysis . Last dialysis yesterday.. sp4
--- NOTE | 2025-04-04 03:09 | ER ---
Nurse's Notes [facility] Name: Lavon Antonio Age: 60 yrs Sex: Male : 1965 Arrival Date: 04/04/2025 Time: 00:15 Bed IW1 Private MD: Diagnosis: Dizziness and giddiness;Acute lightheadedness Presentation: 04/04 00:15 Chief complaint: Patient states: I felt dizzy since this afternoon around 1500. EMS cc6 states: pt reports dizziness since 1500, he walked out of his home upon our arrival, NIH is 0. vital signs stable. 00:15 Coronavirus screen: At this time, the client does not indicate any symptoms associated cc6 with coronavirus-19. Ebola Screen: Patient negative for fever greater than or equal to 101.5 degrees Fahrenheit, and additional compatible Ebola Virus Disease symptoms Patient denies exposure to infectious person. Patient denies travel to an Ebola-affected area in the 21 days before illness onset. No symptoms or risks identified at this time. Initial Sepsis Screen: Does the patient meet any 2 criteria? No. Patient's initial sepsis screen is negative. Does the patient have a suspected source of infection? No. Patient's initial sepsis screen is negative. Risk Assessment: Do you want to hurt yourself or someone else? Patient reports no desire to harm self or others. Onset of symptoms was April 03, 2025 at 15:00. 00:15 Method Of Arrival: Ambulatory cc6 00:15 Acuity: VIANNEY 3 cc6 Triage Assessment: 00:15 General: Appears in no apparent distress. comfortable, Behavior is calm, cooperative, cc6 appropriate for age. 00:15 Pain: Denies pain. EENT: No deficits noted. No signs and/or symptoms were reported cc6 regarding the EENT system. Neuro: No deficits noted. Level of Consciousness is awake, alert, obeys commands, Oriented to person, place, time, situation, Appropriate for age [employer] Work[employer] are equal bilaterally Moves all extremities. Full function Gait is steady, Speech is normal, Facial symmetry appears normal, Pupils are PERRLA, Pupil Size: 3 mm Intact Reports dizziness, since 1500. Cardiovascular: Denies chest pain, Capillary refill < 3 seconds in bilateral Patient's skin is warm and dry. Respiratory: Airway is patent Respiratory effort is even, unlabored, Respiratory pattern is regular, symmetrical. GI: No deficits noted. No signs and/or symptoms were reported involving the gastrointestinal system. : No deficits noted. No signs and/or symptoms were reported regarding the genitourinary system. Derm: No deficits noted. No signs and/or symptoms reported regarding the dermatologic system. Musculoskeletal: No deficits noted. No signs and/or symptoms reported regarding the musculoskeletal system. Historical: - Allergies: 00:40 NKDA; cc6 - Home Meds: 00:40 None [Active]; cc6 - PMHx: 00:40 HD - MWF; kidney disease; cc6 - PSHx: 00:40 right upper arm fistula (kidney disease); cc6 - Immunization history:: Adult Immunizations up to date. - Infectious Disease History:: Denies. - Social history:: Smoking status: Patient denies any tobacco usage or history of. - Family history:: not pertinent. Screenin:43 [facility] ED Fall Risk Assessment (Adult) History of falling in the last 3 months, cc6 including since admission No falls in past 3 months (0 pts) Confusion or Disorientation No (0 pts) Intoxicated or Sedated No (0 pts) Impaired Gait No (0 pts) Mobility Assist Device Used No (0 pt) Altered Elimination No (0 pt) Score/Fall Risk Level 0 - 2 = Low Risk Oriented to surroundings, Maintained a safe environment, Educated pt \T\ family on fall prevention, incl call for assistance when getting out of bed, Assessed \T\ reinforced patient's understanding of fall precautions, Hourly rounding (assess needs \T\ fall precautionary measures) done, Used ambulatory aids as needed (educated on \T\ assisted with), Used gait belt as appropriate. Abuse screen: Denies threats or abuse. Nutritional screening: No deficits noted. Tuberculosis screening: No symptoms or risk factors identified. Assessment: 01:14 Reassessment: Patient appears in no apparent distress at this time. Patient and/or cc6 family updated on plan of care and expected duration. Pain level reassessed. Patient is alert, oriented x 3, equal unlabored respirations, skin warm/dry/pink. Patient denies pain at this time. Patient states feeling better. 02:14 General: Appears in no apparent distress. Behavior is calm, cooperative. General: pt kd3 provided warm blankets. lights dimmed for comfort . Neuro: Level of Consciousness is awake, alert, obeys commands, Oriented to person, place, time, situation. Cardiovascular: Capillary refill < 3 seconds Patient's skin is warm and dry. Respiratory: Airway is patent Trachea midline Respiratory effort is even, unlabored, Respiratory pattern is regular, symmetrical. 02:41 Reassessment: Patient appears in no apparent distress at this time. Patient and/or bm8 family updated on plan of care and expected duration. Pain level reassessed. Patient is alert, oriented x 3, equal unlabored respirations, skin warm/dry/pink. Patient denies pain at this time. Patient states feeling better. Patient states symptoms have improved. Vital Signs: 00:15 BP 117 / 76; Pulse 87; Resp 17; Temp 98.4; Pulse Ox 100% ; Weight 74.5 kg; Height 5 ft. cc6 3 in. ; Pain 0/10; 01:14 BP 111 / 70; Pulse 82; Resp 18; Temp 98.4; Pulse Ox 100% ; cc6 02:14 BP 108 / 69; Pulse 68; Resp 16; Pulse Ox 98% on R/A; kd3 02:40 BP 114 / 75; Pulse 87; Resp 16; Pulse Ox 98% on R/A; kd3 00:15 Body Mass Index 29.09 (74.50 kg, 160.02 cm) cc6 00:15 Pain Scale: Adult cc6 Magalie Coma Score: 00:43 Eye Response: spontaneous(4). Motor Response: obeys commands(6). Verbal Response: cc6 oriented(5). Total: 15. 01:14 Eye Response: spontaneous(4). Motor Response: obeys commands(6). Verbal Response: cc6 oriented(5). Total: 15. 04/05 00:15 Eye Response: spontaneous(4). Motor Response: obeys commands(6). Verbal Response: sp4 oriented(5). Total: 15. NIH Stroke Scale Scores: 00:15 NIHSS Score: 0 sp4 ED Course: 04/04 00:15 Patient arrived in ED. rv1 00:15 Arm band placed on right wrist. cc6 00:23 Shaquille Munguia MD is Attending Physician. sp4 00:28 Marianne Hoffman RN is Primary Nurse. kd3 00:34 COVID-19 Ag + Flu A+B Ag Sent. kd3 00:34 Basic Metabolic Panel Sent. kd3 00:34 CBC with Diff Sent. kd3 00:34 LFT's Sent. kd3 00:34 Magnesium Sent. kd3 00:34 NT PRO-BNP Sent. kd3 00:34 PT-INR Sent. kd3 00:34 Troponin HS Sent. kd3 00:35 TSH Sent. kd3 00:35 T4 Free Sent. kd3 00:40 Triage completed. cc6 00:43 No provider procedures requiring assistance completed. Patient maintains SpO2 cc6 saturation greater than 95% on room air. 00:43 Patient has correct armband on for positive identification. Bed in low position. Call cc6 light in reach. Side rails up X 1. Client placed on continuous cardiac and pulse oximetry monitoring. NIBP monitoring applied. Pulse ox on. NIBP on. Door closed. Noise minimized. Warm blanket given. Pillow given. Verbal reassurance given. Head of bed elevated. 00:48 XRAY Chest (1 view) In Process Unspecified. EDMS 01:14 CT Head Brain wo Cont In Process Unspecified. EDMS 02:40 IV discontinued, intact, bleeding controlled, No redness/swelling at site. Pressure kd3 dressing applied. 02:40 Provided Education on: CT scan . kd3 03:07 Brayden Gutierrez DO is Referral Physician. sp4 Administered Medications: 00:43 Not Given (Physician Discretion): ns 0.9% 1000 ml IV at 1000 ml once; to be given as a kd3 bolus over 60 minutes 01:04 Drug: Meclizine PO 25 mg PO once Route: PO; cc6 01:16 Follow up: Response: No adverse reaction cc6 Medication: 00:43 VIS not applicable for this client. cc6 Outcome: 02:39 Discharged to home ambulatory, kd3 02:39 Condition: stable 02:39 Discharge instructions given to patient, Instructed on discharge instructions, follow up and referral plans. Demonstrated understanding of instructions, follow-up care, 03:08 Discharge ordered by MD. sorenson 03:26 Patient left the ED. bm8 NIH Stroke Scale - NIH Stroke Score Date: 04/05/2025 Time: 00:15 Total Score = 0 10. Dysarthria (speech clarity - read or repeat words) - 0(Normal) 11. Extinction and Inattention (visual/tactile/auditory/spatial/personal) - 0(No abnormality) 1a. Level of Consciousness (LOC) - 0(Alert) 1b. Level of Consciousness (LOC) (Month \T\ Age) - 0(Both) 1c. LOC Commands (Open \T\ Closes Eyes/Leasing Associate) - 0(Both) 2. Best Gaze (Lateral Gaze Paresis) - 0(Normal) 3. Visual Field Loss - 0(No visual loss) 4. Facial Palsy - 0(Normal) 5a. Left Arm: Motor (10-second hold) - 0(No drift) 5b. Right Arm: Motor (10-second hold) - 0(No drift) 6a. Left Leg: Motor (5-second hold - always test supine) - 0(No drift) 6b. Right Leg: Motor (5-second hold - always test supine) - 0(No drift) 7. Limb Ataxia (finger/nose \T\ heel/sims - test with eyes open) - 0(Absent) 8. Sensory Loss (pinprick arms/legs/face) - 0(Normal) 9. Best Language: Aphasia (description/naming/reading) - 0(No aphasia) Initials: sp4 Signatures: Dispatcher [employer] EDMarianne Powell, RN RN kd3 Xiao Wallace rv1 Shaquille Munguia MD MD sp4 Flavio Strauss, RN RN bm8 Talisha Doyle, RN RN cc6
--- NOTE | 2025-04-04 03:14 | RAD REPORT ---
EXAM: XR Chest, 1 View ([id number], [id number]) CLINICAL HISTORY: 60 years Male CHEST PAIN TECHNIQUE: Frontal view of the chest. COMPARISON: 11/15/24 FINDINGS: Lungs: Low lung volumes. No airspace consolidation. Pleural space: No pneumothorax. No pleural effusion. Heart: Normal heart size. Mediastinum: Normal mediastinal contour. Bones/joints: No acute abnormality. IMPRESSION: 1. No acute cardiopulmonary process. Electronically signed by: Tomas Beverly MD 04/04/2025 03:10 AM CDT Due to temporary technical issues with the PACS/[employer] reporting system, reports are being tisha d by the in-house radiologist without review as a courtesy to ensure prompt reporting the interpreting radiologist is fully responsible for the content of the report. Transcribed Date/Time: 04/04/2025 3:14 AM
[2025-04-04 03:38] VITALS: TEMP 98.4
[2025-04-04 03:39] VITALS: O2SAT 98
[2025-04-04 03:41] VITALS: BP 114/75
--- NOTE | 2025-04-04 04:06 | RAD REPORT ---
EXAM: Head Brain Wo Cont HISTORY: 60 years Male DIZZINESS COMPARISON: 03/23/25 TECHNIQUE: Contiguous axial images of the head were obtained from the skull base through the vertex without IV c ontrast followed by multiplanar reformats. This exam was performed according to our departmental dose-optimization program, which includes automated exposure control, adjustment of the mA and/or kV according to patient size and/or use of iterative reconstruction technique. FINDINGS: Generalized parenchymal volume loss. No hydrocephalus. No midline shift. The basal cisterns are paten t. No abnormal extra axial collection. No acute intracranial hemorrhage or developing territorial infarct. Preserved cheema-white differentiation. Scattered chronic microangiopathic ischemic white quique er changes. Orbital contents are unremarkable. The paranasal sinuses and mastoid air cells are well pneumatized. No acute calvarial abnormality. Left pterional craniotomy defect. IMPRESSION: 1. No acute intracranial pathology. Electronically signed by: Tomas Beverly MD 04/04/2025 03:13 AM CDT RP Due to temporary technical issues with the PACS/[employer] reporting system, reports are being tisha d by the in-house radiologist without review as a courtesy to ensure prompt reporting the interpreting radiologist is fully responsible for the content of the report. Transcribed Date/Time: 04/04/2025 4:05 AM
== END 2025-04-04 03:26 | disposition home or self-care (01) ==
LOC: ER 00:18
DX: R42 Dizziness and giddiness (principal); Z11.52 Encounter for screening for COVID-19
CPT/HCPCS: 93005; 85025; 80048; 36415; 83735; 85610; 80076; 84443; 84484; 84439; 83880; 70450; 71045; 99284; 87428; J8597; J7030